=== PATIENT | female | born 1975 | race Caucasian/White ===

== ENCOUNTER 2020-01-22 08:14 | Emergency (ER) | payer OTHER, SELFPAY ==
--- NOTE | ~2020-01-22 | XR_ITS ---
EXAMINATION: XR foot RT min 3V DATE: 01/22/2020 08:35 INDICATION: Right foot lateral pain. Injury. TECHNIQUE: 4 views of right foot were obtained. COMPARISON: None. FINDINGS: Bone alignment is normal. No fracture. There is mild osteoarthritis of first metatarsophala ngeal joint and some of the midfoot joints and interphalangeal joints. There are enthesophytes at the posterior and plantar aspects of calcaneal tuberosity. IMPRESSION: 1. Mild polyarticular osteoarthritis. Reviewed, dictated and finalized at location A.
[2020-01-22 08:26] VITALS: BP 122/66; PULSE 64; RESP 16; TEMP 36.8; O2SAT 98
--- NOTE | 2020-01-22 08:27 | PC.NURSE ---
Pt going to Xray
--- NOTE | 2020-01-22 08:51 | ED.LOWEXIN ---
HPI - Extremity Injury (Lower) General Chief Complaint: Extremity Injury, Lower Stated Complaint: injury right foot pain Time Seen by Provider: 01/22/20 08:30 Source: patient and RN notes reviewed Mode of arrival: ambulatory Limitations: no limitations History of Present Illness HPI Narrative: Patient presents today complaining of right lateral foot pain after twisting her foot while mowing 4 days ago. Denies numbness or tingling in the leg or foot. Describes the pain as aching. Currently rates her pain 4/10, which increases with weightbearing. She has been taking ibuprofen with mild relief. complaint: foot injury Related Data Home Medications Medication Instructions Recorded Confirmed lisinopril-hydrochlorothiazide 1 tablet PO DAILY 01/22/20 01/22/20 [Zestoretic] Allergies Allergy/AdvReac Type Severity Reaction Status Date / Time No Known Allergies Allergy Verified 09/03/17 20:29 Review of Systems Review of Systems: Narrative: CONSTITUTIONAL: Denies body aches, fever, chills, or sweats. EYES: Denies visual changes, redness, or discharge. ENT: Denies rhinorrhea, congestion, sore throat, or otalgia. CARDIOVASCULAR: Denies chest pain, palpitations, or edema. RESPIRATORY: Denies cough or dyspnea. GASTROINTESTINAL: Denies abdominal pain, nausea, vomiting, or diarrhea. GENITOURINARY: Denies dysuria or hematuria. SKIN: Denies rash, itching, or wounds. MUSCULOSKELETAL: Denies back pain, or myalgia.+ Right foot injury NEUROLOGIC: Denies headache, numbness, tingling, or weakness. PSYCH: Denies depression or anxiety. PMFSH Social History Social History Gender identity (if verbalized by the patient): Female Comments At time of signature, I have reviewed and agree with nursing past medical, surgical, social and family history unless otherwise noted. Please see nursing chart for further information. There is no relevant family history pertinent to the presenting complaint Exam Narrative: Exam Narrative: GENERAL: Well-appearing, over-nourished, and in no acute distress. HEAD: Normocephalic, atraumatic. EYES: EOMI. No redness or drainage. Conjunctivae normal. ENT: Mucous membranes pink and moist. NECK: Normal AROM. Supple. No lymphadenopathy. CHEST: No respiratory distress. EXTREMITIES: Normal range of motion. No edema. Patient localizes pain to the lateral right midfoot. No edema or ecchymosis noted. Distal sensation intact. Capillary refill normal. Pedal pulse normal. Full AROM of toes and ankle without increased pain. SKIN: Warm, dry, no rash. Capillary refill normal. Normal skin turgor. NEURO: No focal deficits. Alert and oriented x3. Gait steady. PSYCH: Normal affect. No signs of depression or anxiety. Course Vital Signs Vital signs: Vital Signs Temperature 98.3 F 01/22/20 08:26 Pulse Rate 64 01/22/20 08:26 Respiratory Rate 16 01/22/20 08:26 Blood Pressure 122/66 01/22/20 08:26 Pulse Oximetry 98 01/22/20 08:26 Temperature 98.3 F 01/22/20 08:26 Pulse Rate 64 01/22/20 08:26 Respiratory Rate 16 01/22/20 08:26 Blood Pressure 122/66 01/22/20 08:26 Pulse Oximetry 98 01/22/20 08:26 Reviewed. Pt has been instructed to follow up with her PCP regarding her elevated blood pressure today. MDM - Extremity Injury (Lower) Differential Diagnosis Differential diagnosis: Likely other (Foot sprain, foot fracture) Imaging Data Radiologist's impression: ITS Impressions Foot X-Ray 01/22/20 08:39 IMPRESSION: 1. Mild polyarticular osteoarthritis. Critical Care Time Critical Care Time Critical Care Time: No Discharge Plan Discharge Clinical Impression: Right foot sprain Qualifiers: Encounter type: initial encounter Qualified Code(s): S93.601A - Unspecified sprain of right foot, initial encounter Patient Disposition: Home, Self-Care Condition: Stable Instructions: Foot Sprain (ED) Additional Instructions: Your xray is negati
== END 2020-01-22 08:57 | disposition home or self-care (01) ==
PROVIDERS: Emergency Provider Nurse Practitioner; PCP Nurse Practitioner Family
DX: S93.601A Unspecified sprain of right foot, initial encounter (principal); M19.071 Primary osteoarthritis, right ankle and foot; X50.9XXA Other and unspecified overexertion or strenuous movements or postures, initial encounter; Y93.H2 Activity, gardening and landscaping
CPT/HCPCS: 73630; 99213; G0463

== ENCOUNTER → 2020-05-09 15:13 | Outpatient (CLI) | payer OTHER, SELFPAY ==
--- NOTE | ~2020-05-09 | MM_ITS ---
EXAMINATION: MM screening mg BI w meka HISTORY: Screening mammogram TECHNIQUE: Craniocaudal and mediolateral oblique 3-D tomosynthesis images were obtained and synthetic 2-D images were generated. CAD analysis was submitted and interpreted. COMPARISON: 08/08/2016 bilateral diagnostic digital mammogram 05/08/2015 diagnostic left digital mammogram 04/11/2015 and 03/21/2014 bilateral digital screening mammogram examinations BREAST PARENCHYMAL COMPOSITION: There are scattered areas of fibroglandular density. FINDINGS: There is no evidence of suspicious mass, calcification, or architectural distortion to sugg est malignancy in either breast. There has been no suspicious interval change. IMPRESSION: 1. No mammographic evidence of malignancy. 2. Recommend routine screening mammography in one year. BI-RADS Category 1: Negative Reviewed, dictated and finalized at location A.
== END ==
PROVIDERS: Visit Provider Nurse Practitioner Family
DX: Z12.31 Encounter for screening mammogram for malignant neoplasm of breast (principal)
CPT/HCPCS: 77063; 77067

== ENCOUNTER 2020-06-30 11:37 | Emergency (ER) | payer OTHER, SELFPAY ==
[2020-06-30 11:47] VITALS: BP 110/73; PULSE 64; RESP 16; TEMP 35.7; O2SAT 99
--- NOTE | 2020-06-30 12:16 | ED.GENADULT ---
HPI - General Adult General Chief complaint: Ear Stated complaint: Ear Pain Time Seen by Provider: 06/30/20 12:16 Source: patient Mode of arrival: ambulatory Limitations: no limitations History of Present Illness HPI narrative: 45-year-old female patient presents to the [facility] with complaints of right ear pain for the past 4 to 5 days. Patient states that she was seen at a [facility] last week for the ear pain. Patient states that she was told that she had some redness to the canal and her ear was flushed several times in the clinic. Patient was given some eardrop, Ciprodex medication to use. Patient states that she has been taking ibuprofen for the pain which has helped but states that the pain got significantly worse today. Denies any fevers, body aches or chills. Related Data Home Medications Medication Instructions Recorded Confirmed lisinopril-hydrochlorothiazide 1 tablet PO DAILY 01/22/20 06/30/20 [Zestoretic] Allergies Allergy/AdvReac Type Severity Reaction Status Date / Time No Known Allergies Allergy Verified 06/30/20 11:55 Review of Systems Review of Systems: Narrative: CONSTITUTIONAL: Denies fever, chills, or sweats. EYES: Denies visual changes, redness, or discharge. ENT: Denies rhinorrhea, congestion, sore throat, positive right otalgia. CARDIOVASCULAR: Denies chest pain, palpitations, or edema. RESPIRATORY: Denies cough or dyspnea. GASTROINTESTINAL: Denies abdominal pain, nausea, vomiting, or diarrhea. GENITOURINARY: Denies dysuria or hematuria. SKIN: Denies rash or itching. MUSCULOSKELETAL: Denies back pain, joint pain, or myalgia. NEUROLOGIC: Denies headache, numbness, or weakness. PSYCHIATRIC: Denies anxiety or depression. [facility] Past Medical History Medical History BMI greater than 40 Patella-femoral syndrome Right knee pain Vision abnormalities Surgical History Surgical History History of carpal tunnel release Carpal tunnel syndrome: performed by Dr. Adelfo Klein in [facility] Social History Social History Smoking status: Never smoker Alcohol intake: never Gender identity (if verbalized by the patient): Female Comments At the time of my signature I agree with nursing past medical history, surgical, social, and family history. There is no relevant family history pertinent to the presenting complaint. Exam Narrative: Exam Narrative: GENERAL: Well-appearing, well-nourished, and in no acute distress. HEAD: Normocephalic, atraumatic. EYES: PERRLA and EOMI. ENT: Nares clear, no rhinorrhea or epistaxis. Mucous membranes moist. Posterior pharynx with no erythema, tonsillar erythema, exudates or lesions present. The right canal is very swollen with significant erythema and does appear dry but no obvious discharge. Unable to visualize the TM very well but it does appear that she might have some cloudiness and bulging is to the TM as well. NECK: Supple. No lymphadenopathy CHEST: Clear to auscultation. No respiratory distress. HEART: Regular rate and rhythm. No murmur heard. Normal peripheral pulses. ABDOMEN: Soft, nontender, nondistended, normal active bowel sounds. EXTREMITIES: Normal range of motion. No edema. SKIN: Warm, dry, no rash. NEURO: No focal deficits. Alert and oriented x3. Course Vital Signs Vital signs: Vital Signs Temperature 35.7 C L 06/30/20 11:47 Pulse Rate 64 06/30/20 11:47 Respiratory Rate 16 06/30/20 11:47 Blood Pressure 110/73 06/30/20 11:47 Pulse Oximetry 99 06/30/20 11:47 Temperature 35.7 C L 06/30/20 11:47 Pulse Rate 64 06/30/20 11:47 Respiratory Rate 16 06/30/20 11:47 Blood Pressure 110/73 06/30/20 11:47 Pulse Oximetry 99 06/30/20 11:47 Vital signs reviewed. Medical Decision Making Differential Diagnosis Differential Diagnosis: D
== END 2020-06-30 12:25 | disposition home or self-care (01) ==
PROVIDERS: Emergency Provider Nurse Practitioner Family; PCP Nurse Practitioner Family
DX: H66.91 Otitis media, unspecified, right ear (principal); H60.501 Unspecified acute noninfective otitis externa, right ear; I10 Essential (primary) hypertension
CPT/HCPCS: 99213; G0463

== ENCOUNTER → 2021-05-20 07:39 | Outpatient (CLI) | payer OTHER, SELFPAY ==
[2021-05-20 12:23] LABS: Influenza Control Positive
[2021-05-21 07:19] LABS: SARS-CoV-2 RNA PCR Negative
== END ==
PROVIDERS: PCP Nurse Practitioner Family; Visit Provider Nurse Practitioner Family
DX: B34.9 Viral infection, unspecified (principal); Z20.822 Contact with and (suspected) exposure to COVID-19
CPT/HCPCS: 87804; C9803; U0003; U0005

== ENCOUNTER 2021-07-29 02:06 | Emergency (ER) | payer OTHER, SELFPAY ==
--- NOTE | ~2021-07-29 | CT_ITS ---
EXAMINATION: CTA chest PE abdomen pel DATE: 07/29/2021 04:17 INDICATION: Chest pain. TECHNIQUE: Computed tomography angiography (CTA) of the chest was performed with 100 mL Omnipaque-350 intravenous contrast timed to evaluate the pulmonary arteries. Coronal maximum intensity projection 3D-reconstructions were created by the technologist. Computed tomography (CT) of the abdomen and pelv is was performed with intravenous contrast. Automated exposure control and iterative reconstruction t echnique were employed. The dose-length product was 2310.17 mGy-cm. COMPARISON: CT abdomen and pelvis 09/03/2017 FINDINGS: CTA chest: The lungs demonstrate mild atelectasis. No pleural effusion. The heart size is normal. No pericardial effusion. There is no pulmonary embolus. CT abdomen and pelvis: There is diffuse hepatic steatosis. There is a small peripheral infarct in the spleen. The gallbladder, pancreas, and adrenal glands are normal. There is cortical thinning of the kidneys. There is a 4.0 cm cyst in right ovary. There is diverticulosis of the colon without evidence of diverticulitis. The appendix is normal. There are surgical changes of the stomach. There are no p athologically enlarged lymph nodes. There is no free intraperitoneal fluid. There is mild thoracolumb ar spondylosis. IMPRESSION: 1. No pulmonary embolus. 2. 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 3. 4.0 cm cyst in right ovary, new from 09/03/2017, likely a follicular cyst. 9 4. Diffuse hepatic steatosis. Reviewed, dictated and finalized at location A. [address] [employer]
[2021-07-29 02:11] VITALS: BP 185/108; PULSE 56; RESP 18; TEMP 36.1; O2SAT 98
--- NOTE | 2021-07-29 02:14 | ED.ABDPAIN ---
HPI - Abdominal Pain General Chief Complaint: Abdominal Pain Stated Complaint: lt flank pain with nausea Time Seen by Provider: 07/29/21 02:13 Source: patient Mode of arrival: ambulatory Limitations: no limitations History of Present Illness HPI narrative: Patient is a 46-year-old female with a history of hypertension, recent gastric sleeve surgery of [facility], presenting for evaluation of right thoracic back pain. Patient reports pain in her left posterior chest wall awaken her from sleep approximately 2 hours ago. Pain is sharp, stabbing in nature. Patient reports worsened pain with movement or with palpation of that area. Patient denies any leg swelling or calf pain. States she has been ambulatory. Does report recent gastric sleeve surgery of [facility]. She denies history of coagulopathy, DVT or PE in the past. She is not currently on any anticoagulation. Patient denies any fever, chills, frontal chest pain. No frontal abdominal pain. She does endorse mild left flank pain. She denies associated shortness of breath. She does report nausea without vomiting. Patient denies diarrhea or constipation. Related Data Home Medications Medication Instructions Recorded Confirmed lisinopril-hydrochlorothiazide 1 tablet PO DAILY 01/22/20 06/30/20 [Zestoretic] Allergies Allergy/AdvReac Type Severity Reaction Status Date / Time No Known Allergies Allergy Verified 06/30/20 11:55 Review of Systems Review of Systems: CONSTITUTIONAL: Denies fever, chills, or sweats. EYES: Denies visual changes, redness, or discharge. ENT: Denies rhinorrhea, congestion, sore throat, or otalgia. CARDIOVASCULAR: Denies frontal chest pain, palpitations, or edema. Reports left posterior chest wall pain RESPIRATORY: Denies cough or dyspnea. GASTROINTESTINAL: Denies abdominal pain, nausea, vomiting, or diarrhea. GENITOURINARY: Denies dysuria or hematuria. SKIN: Denies rash or itching. MUSCULOSKELETAL: Denies back pain, joint pain, or myalgia. NEUROLOGIC: Denies headache, numbness, or weakness. [facility] Past Medical History Medical History BMI greater than 40 Patella-femoral syndrome Right knee pain Vision abnormalities Surgical History Surgical History History of carpal tunnel release Carpal tunnel syndrome: performed by Dr. Adelfo Klein in [facility] Social History Social History Smoking status: Never smoker Alcohol intake: never Gender identity (if verbalized by the patient): Female Exam Narrative: GENERAL: Awake, alert, conversant HEAD: Normocephalic, atraumatic. EYES: PERRLA and EOMI. ENT: Nares clear, no rhinorrhea or epistaxis. Mucous membranes moist. NECK: Supple. CHEST: No respiratory distress, breathing even and non labored, + left thoracic chest wall pain, no crepitus, this exactly reproduces pain HEART: Regular rate, sinus rhythm ABDOMEN:Non distended, non tender EXTREMITIES: Normal range of motion. No edema. SKIN: Warm, dry, no rash. NEURO:No focal deficits. Alert and oriented x3 Course Vital Signs Vital signs: Vital Signs Temperature 36.1 C L 07/29/21 02:11 Pulse Rate 56 L 07/29/21 02:11 Respiratory Rate 18 07/29/21 02:11 Blood Pressure 185/108 H 07/29/21 02:11 Pulse Oximetry 98 07/29/21 02:11 Temperature 36.1 C L 07/29/21 02:11 Pulse Rate 56 L 07/29/21 02:11 Respiratory Rate 18 07/29/21 02:11 Blood Pressure 185/108 H 07/29/21 02:11 Pulse Oximetry 98 07/29/21 02:11 MDM - Abdominal Pain MDM Narrative Medical decision making narrative: Patient presenting for evaluation of left upper abdominal pain, left lower thoracic pain. Pain is reproducible on exam. No vesicles or clusters. No overlying rash. Initially, patient is hypertensive but this downtrending at times of reassessment. No
--- NOTE | 2021-07-29 02:59 | ECG_ITS ---
Measurements Intervals [place] Rate: 56 P: 52 TX: 185 QRS: 40 QRSD: 96 T: 37 QT: 432 QTc: 420 Interpretive Statements SINUS BRADYCARDIA LOW QRS VOLTAGE IN PRECORDIAL LEADS BORDERLINE ECG Electronically Signed On 07-29-2021 6:47:50 [employer] by Rambo Galloway D.O.
[2021-07-29] MEDS: MORPHINE SULFATE (*CRX) 4 MG/ML INJ IV PUSH (03:27)
[2021-07-29] MEDS: SODIUM CHLORIDE 0.9% IV 1,000 ML 999 ML IV CONT (03:30)
[2021-07-29] MEDS: ONDANSETRON INJ 4 MG/2 ML VIAL IV PUSH (03:30)
[2021-07-29 03:47] LABS: Basophils Absolute Auto 0.1 K/mm3 (0.0-0.1); Basophils Percent Auto 0.7 % (0.2-1.2); Eosinophils Absolute Auto 0.3 K/mm3 (0-0.3); Eosinophils Percent Auto 3.6 % (0-4.4); Hematocrit 36.5 % (37.0-47.0); Hemoglobin 11.8 g/dL (12.0-15.0); Immature Granulocyte Absolute 0.03 K/mm3 (0.00-0.031); Immature Granulocyte Percent A 0.4 % (0-0.5); Immature Platelet Fraction Pct 16.3 % (0.9-11.2); Lymphocytes Absolute Auto 2.82 K/mm3 (0.9-3.2); Lymphocytes Percent Auto 39.4 % (18.3-44.2); Mean Corpuscular HGB Conc 32.3 g/dl (32-36); Mean Corpuscular Volume 86.7 fl (80-100); Mean Platelet Volume 13.7 fl (7.4-10.4); Monocytes Absolute Auto 0.5 K/mm3 (0.1-0.6); Monocytes Percent Auto 7.6 % (2.6-8.5); Neutrophils Absolute Auto 3.5 K/mm3 (1.3-6.7); Neutrophils Percent Auto 48.3 % (45.5-73.1); Platelet Count Result 194 k/mm3 (150-375); Red Blood Count 4.21 M/mm3 (4.2-5.4); Red Cell Distribution Width 15.2 % (11.5-14.5); White Blood Count 7.2 K/mm3 (4.5-10.0)
[2021-07-29 04:00] LABS: Alanine Aminotransferase 30 U/L (4-35); Albumin Level 3.9 g/dL (3.5-5.1); Alkaline Phosphatase 66 U/L (38-126); Anion Gap 6 mmol/L (8-16); Aspartate Amino Transferase 31 U/L (14-36); Bilirubin,Total 0.4 mg/dL (0.2-1.3); Blood Urea Nitrogen 15 mg/dL (7-17); Calcium 9.2 mg/dL (8.4-10.2); Carbon Dioxide 26 mmol/L (22-30); Chloride 102 mmol/L (98-107); Estimated CRCL calculation 125 ml/min; Estimated Glomerular Filt Rate > 60; Glucose 104 mg/dL (65-110); Lipase 68 U/L (23-300); Potassium 3.4 mmol/L (3.4-5.0); Sodium 134 mmol/L (137-145)
[2021-07-29 06:09] LABS: Troponin I < 0.012 ng/mL (0.000-0.034)
[2021-07-29 06:31] VITALS: RESP 16; O2SAT 100
== END 2021-07-29 06:32 | disposition home or self-care (01) ==
PROVIDERS: Emergency Provider Emergency Medicine; PCP Nurse Practitioner Family
DX: M54.6 Pain in thoracic spine (principal); I10 Essential (primary) hypertension; Z98.84 Bariatric surgery status; R00.1 Bradycardia, unspecified
CPT/HCPCS: 36415; 71275; 74177; 80053; 83690; 84484; 85025; 85055; 85380; 93005; 96365; 96366; 96375; 99284; J0131; J2270; J2405; J7030; Q9967

== ENCOUNTER → 2022-05-26 13:16 | Outpatient (CLI) | payer OTHER, SELFPAY ==
--- NOTE | ~2022-05-26 | MM_ITS ---
EXAMINATION: MM screening mg BI w meka HISTORY: Screening mammogram TECHNIQUE: Craniocaudal and mediolateral oblique 3-D tomosynthesis images were obtained and synthetic 2-D images were generated. CAD analysis was submitted and interpreted. COMPARISON: 05/09/2020, 07/29/2016, 05/08/2015, 04/11/2015, 03/21/2014 BREAST PARENCHYMAL COMPOSITION: The breasts are heterogeneously dense, which may obscure small masses . FINDINGS: RIGHT BREAST: No suspicious mass, calcification, or architectural distortion are identified to sugges t malignancy. There has been no suspicious interval change. LEFT BREAST: There is a possible mass in the anterior third of the inner breast best appreciated 3.5 cm from the nipple on the craniocaudal view. IMPRESSION: 1. Possible left breast mass 2. Additional mammographic views and possible breast ultrasound are recommended. BI-RADS Category 0: Incomplete: Needs additional imaging evaluation. Reviewed, dictated and finalized at location A. IMPRESSION: 1. Possible left breast mass 2. Additional mammographic views and possible breast ultrasound are recommended . BI-RADS Category 0: Incomplete: Needs additional imaging evaluation.
== END ==
PROVIDERS: PCP Nurse Practitioner Family; Visit Provider Nurse Practitioner Family
DX: Z12.31 Encounter for screening mammogram for malignant neoplasm of breast (principal); R92.8 Other abnormal and inconclusive findings on diagnostic imaging of breast
CPT/HCPCS: 77063; 77067

== ENCOUNTER → 2022-06-09 08:17 | Outpatient (CLI) | payer OTHER, SELFPAY ==
--- NOTE | ~2022-06-09 | MMUS_ITS ---
EXAMINATION: MM diagnostic mg LT w meka, US breast LT limited HISTORY: Follow-up left breast asymmetry TECHNIQUE: Additional 3-D tomosynthesis images of the left breast were performed and synthetic 2-D im ages were generated. CAD analysis was submitted and interpreted. High resolution Limited left breast ultrasound was performed. COMPARISON: 05/26/2022 BREAST PARENCHYMAL COMPOSITION: Breast composed of scattered areas of fibroglandular density FINDINGS: MAMMOGRAPHIC FINDINGS: There are no discrete masses, architectural distortion or suspicious calcifications in the left breas t. ULTRASOUND: Limited left breast ultrasound: Normal heterogeneous echotexture without focal solid or cystic mass. IMPRESSION: 1. No evidence for malignancy in the left breast. 2. Routine yearly screening mammogram and regular clinical breast examination are recommended. BI-RADS Category 1: Negative Reviewed, dictated and finalized at location A. IMPRESSION: 1. No evidence for malignancy in the left breast. 2. Routine yearly screening mammogram and regular clinical breast examination a re recommended. BI-RADS Category 1: Negative
== END ==
PROVIDERS: PCP Nurse Practitioner Family; Visit Provider Nurse Practitioner Family
DX: R92.8 Other abnormal and inconclusive findings on diagnostic imaging of breast (principal)
CPT/HCPCS: 76642; 77061; 77065; G0279

== ENCOUNTER 2022-12-28 09:37 | Emergency (ER) | payer OTHER, SELFPAY ==
--- NOTE | ~2022-12-28 | XR_ITS ---
Right foot Technique: AP, oblique, and lateral views were obtained. Clinical History: Lateral pain Findings: No acute fracture or dislocation is seen. Osseous alignment is anatomic. Joint spaces are p reserved without erosive or degenerative change. Frontal calcaneal spur noted. Soft tissues are unrem arkable. Impression: No fracture or dislocation. Plantar calcaneal spur. Reviewed, dictated and finalized at location . Impression: No fracture or dislocation. Plantar calcaneal spur.
[2022-12-28 09:48] VITALS: BP 145/89; PULSE 56; RESP 16; TEMP 36.4; O2SAT 100
--- NOTE | 2022-12-28 09:48 | ED.LOWEXIN ---
HPI - Extremity Injury (Lower) General Chief Complaint: Extremity Injury, Lower Stated Complaint: Foot Injury Time Seen by Provider: 12/28/22 10:12 Source: patient, RN notes reviewed and old records reviewed Mode of arrival: ambulatory Limitations: no limitations History of Present Illness HPI Narrative: 47-year-old female presents to the [facility] with complaints of lateral mid right foot pain after returning from [place]. States that she was doing a lot a walking and wearing sandals Has taken Tylenol Related Data Home Medications Medication Instructions Recorded Confirmed No Home Medications 12/28/22 12/28/22 Allergies Allergy/AdvReac Type Severity Reaction Status Date / Time NSAIDS (Non-Steroidal AdvReac Unknown Verified 12/28/22 10:07 Anti-Inflamma Review of Systems Review of Systems: All systems reviewed & are unremarkable except as noted in HPI and below Constitutional: Constitutional: Reports no additional constitutional complaints Eyes: Eyes: Reports no additional eye complaints ENT: Reports system reviewed and no additional complaints, except as documented Cardiovascular: Cardiovascular: Reports no additional cardiovascular complaints, Denies chest pain and Denies dyspnea Respiratory: Respiratory: Reports no additional respiratory complaints, Denies chest congestion, Denies cough and Denies dyspnea Gastrointestinal: Gastrointestinal: Reports no additional gastrointestinal complaints, Denies abdominal pain, Denies nausea and Denies vomiting Musculoskeletal: Musculoskeletal: Reports as per HPI Integumentary/Breasts: Skin/Breast: Reports system reviewed and no additional complaints, except as docu Neurologic: Reports system reviewed and no additional complaints, except as documented Psychiatric: Psychiatric: Reports no additional psychiatric complaints Allergic/Immunologic: Allergic/Immunologic: Reports no additional allergic/immunologic complaints [facility] Past Medical History Medical History (Updated 12/28/22 @ 10:18 by Kimberlyn Ragsdale APRN) BMI greater than 40 Patella-femoral syndrome Right knee pain Vision abnormalities Surgical History Surgical History (Updated 12/28/22 @ 10:16 by Kimberlyn Ragsdale APRN) H/O: hysterectomy History of carpal tunnel release Carpal tunnel syndrome: performed by Dr. Adelfo Klein in [facility] gastric sleeve procedure Social History Social History Smoking status: Never smoker Alcohol intake: never Gender identity (if verbalized by the patient): Female Comments At the time of my signature, I reviewed and agree with the nursing past medical, surgical, social, and family history. There is no relevant family history pertinent to the patient complaint. Exam Const: General: cooperative, healthy appearing, comfortable, no acute distress, well developed, alert and well nourished Nutritional Appearance: well nourished Orientation/consciousness: patient oriented x3 Limitations: no limitations HENMT: Head: normal to inspection Ears: hearing grossly normal bilaterally and external ears normal Face/Nose/Sinus: Normal external nose present, Normal nares present, Normal nasal mucous membranes and turbinates present and normal facial exam Face and sinus: normal facial exam Mouth: Yes lip normal Eyes: General: appearance normal, both eyes and all related structures Alignment and Position: alignment normal Periorbital: periorbital findings normal Conjunctivae: conjunctivae normal Pupils: Equal, round and reactive pupils present EOM: EOMs intact bilaterally Neck: Neck: normal visual inspection, full ROM, no lymphadenopathy and no meningeal signs Chest: Chest palpation & inspection: normal inspection of the chest Resp: Effort & Inspection: normal respiratory effort and able to speak in complete sentences Cardio: Rate: regular rate Rhythm: regular rhythm Back/Spine/Pelvis: Cervical Spi
== END 2022-12-28 10:21 | disposition home or self-care (01) ==
PROVIDERS: Emergency Provider Nurse Practitioner; PCP Nurse Practitioner Family
DX: M79.671 Pain in right foot (principal); Z98.84 Bariatric surgery status
CPT/HCPCS: 73630; 99213; G0463

== ENCOUNTER → 2023-02-09 09:44 | Outpatient (CLI) | payer OTHER, SELFPAY ==
--- NOTE | ~2023-02-09 | XR_ITS ---
Right Knee Technique: AP, lateral, and sunrise views were obtained. Clinical History: Pain Findings: No fracture or dislocation is seen. Osseous alignment is anatomic. Minimal spurring noted a t the patella and medial joint line. Soft tissues are unremarkable. No joint effusion is seen. Impression: Minimal degenerative spurring, as above. Reviewed, dictated and finalized at location . Impression: Minimal degenerative spurring, as above.
== END ==
PROVIDERS: PCP Nurse Practitioner Family; Visit Provider Nurse Practitioner Family
DX: M25.561 Pain in right knee (principal)
CPT/HCPCS: 73562

== ENCOUNTER → 2023-04-22 15:38 | Outpatient (CLI) | payer OTHER, SELFPAY ==
--- NOTE | ~2023-04-22 | MR_ITS ---
EXAMINATION: MR knee RT wo con DATE: 04/22/2023 16:16 INDICATION: Right knee pain TECHNIQUE: Magnetic resonance imaging (MRI) of the right knee was performed without intravenous contr ast. Sequences included coronal PD-weighted FSE, coronal PD-weighted FS FSE, sagittal T2-weighted FS E, sagittal PD-weighted FS FSE and axial PD weighted fat saturated FSE. COMPARISON: None. FINDINGS: Medial compartment: There is medial extrusion of the medial meniscal body. There is increased signal at the root of the m edial meniscus suggesting a likely radial tear. Shallow chondral ulceration with partial thickness ca rtilage loss, scattered chondral surface regularity but without degenerative subchondral changes justino g the anterior to central weightbearing medial femoral condyle. Cartilage at the medial tibial platea u appears relatively preserved. Lateral compartment: Lateral meniscus is normal. Small region of shallow chondral ulceration along the posterior aspect of the lateral tibial plateau. Cartilage along the weightbearing lateral femoral condyle appears relati vely preserved. Patellofemoral compartment: Partial-thickness chondral ulceration and deep fissuring at the central aspect of the patellar apical ridge and immediately adjacent medial and lateral facets. There is a tiny focus of underlying edema- like signal change along the medial margin of the apical ridge. Partial-thickness chondral fissuring without degenerative subchondral changes at the inferior aspect of the medial trochlea. Ligaments and tendons: Anterior and posterior cruciate ligaments are normal. The medial collateral ligament and fibular darian ateral ligament complex are normal. The extensor mechanism is normal. The visualized medial and later al hamstring tendons as well as the iliotibial band are normal. Fluid: Physiologic amount of fluid in the joint space. No loose osteochondral bodies identified. Osseous/other: Elongated ovoid low signal intensity bone island at the posterior aspect of the lateral tibial platea u. No fracture or pathologic marrow replacing process. IMPRESSION: 1. Likely radial tear at the posterior root of the medial meniscus with mild medial extrusion of the meniscal body. 2. 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 Reviewed, dictated and finalized at location A. IMPRESSION: 1. Likely radial tear at the posterior root of the medial meniscus with mild me dial extrusion of the meniscal body. 2. Mild tricompartmental osteoarthritis with moderate to high-grade patellar ch ondromalacia and moderate grade chondromalacia at the trochlea and in the media l and lateral compartments.
== END ==
PROVIDERS: PCP Orthopaedic Surgery; Visit Provider Orthopaedic Surgery
DX: M22.2X1 Patellofemoral disorders, right knee (principal); M25.561 Pain in right knee; M17.11 Unilateral primary osteoarthritis, right knee; M94.261 Chondromalacia, right knee
CPT/HCPCS: 73721

== ENCOUNTER 2023-05-30 08:54 | Outpatient (CLI) | payer OTHER, SELFPAY ==
--- NOTE | 2023-05-30 09:02 | ECG_ITS ---
Measurements Intervals [place] Rate: 54 P: 44 [place]: 164 QRS: 26 QRSD: 100 T: 29 QT: 444 QTc: 422 Interpretive Statements SINUS BRADYCARDIA OTHERWISE NORMAL ECG COMPARED TO ECG 07/29/2021 03:36:21 NO SIGNIFICANT CHANGES Electronically Signed On 05-30-2023 9:30:20 CDT by Endy Du M.D.
[2023-05-30 09:47] LABS: Anion Gap 5 mmol/L (8-16); Blood Urea Nitrogen 12 mg/dL (7-17); Calcium 9.1 mg/dL (8.4-10.2); Carbon Dioxide 30 mmol/L (22-30); Chloride 100 mmol/L (98-107); Estimated Glomerular Filt Rate > 60; Glucose 100 mg/dL (65-110); Potassium 3.7 mmol/L (3.4-5.0); Sodium 135 mmol/L (137-145)
== END 2023-05-30 08:55 | disposition home or self-care (01) ==
LOC: ANHSURGERY 08:57
PROVIDERS: Anesthesiology; PCP Nurse Practitioner Family; Visit Provider Orthopaedic Surgery
DX: Z01.812 Encounter for preprocedural laboratory examination (principal); Z01.810 Encounter for preprocedural cardiovascular examination; I10 Essential (primary) hypertension; Z79.899 Other long term (current) drug therapy; R00.1 Bradycardia, unspecified
CPT/HCPCS: 36415; 80048; 93005

== ENCOUNTER 2023-06-06 00:20 | Day surgery (SDC) | payer OTHER, SELFPAY ==
[2023-05-24 15:36] VITALS: BMI 43.5
--- NOTE | 2023-05-24 15:41 | PC.NURSE ---
Report to the Outpatient Waiting Room, entrance under the green pavilion located off [facility], at time _1030_ on date _[id number]_. Planned Procedure Time: _1230_. Time changes happen often and if your time is changed the preop area will call you the afternoon before. - You and your visitor will be asked to self-screen and do not enter if you have any COVID symptoms. - A mask is optional within the hospital at this time. Patients may have clear liquids (water, carbonated beverages, clear teas, apple juice) until 3 hours prior to surgery with a maximum of 20 ounces. - No food from midnight until time of surgery Take the following medications with a SIP of water the morning of surgery: ___None DO NOT STOP ANY OF YOUR OTHER PRESCRIPTION MEDICATIONS PRIOR TO SURGERY ?EXCEPT THE FOLLOWING Medications to discontinue per physician ___Vitamins and fish oil Date to take last gvas__[id number] Please no make-up, nail vietnamese, hairspray, perfume, deodorant, or body powder the day of surgery. No jewelry (including any body piercings) or valuables the day of surgery, leave them at home. Please take a shower or bath the night before, or the morning of, surgery with an antibacterial soap. Wear comfortable, loose fitting clothing. - Jewelry must be removed prior to entering the operating room. Rings and piercings that are not removed may be cut off. - The hospital will not accept responsibility for valuables. - Please leave all valuables, including medications, at home the day of surgery. If you are going home after surgery, a licensed stud driver must drive you home. - NO public transportation without another adult if you receive anesthesia. - We recommend that an adult stay with you for 24 hours following discharge. - We also recommend that you do not drive, make important decision, drink alcoholic beverages, or take any drugs that were not prescribed by your health care provider for at least 24 hours after your discharge time. Follow any additional instructions given to you from your surgeon. If you or anyone in your household have experienced Covid symptoms in the past week, please notify your surgeon or the nurse liaison at the phone number below for possible testing. Telephone instructions given to __Patient__and asked if any additional questions and then verbalized understanding. Patient advised to call surgeon office or pre surgery nurse liaison [phone] if any additional questions.
[2023-06-06] VITALS (9 sets, daily range): BP systolic 102–127; BP diastolic 54–78; PULSE 50–72; RESP 10–16; TEMP 36.3–36.8; O2SAT 96–100
--- NOTE | 2023-06-06 11:28 | WPDANESEPPF ---
Anes - Initial Pre Proc Eval Procedure: Operation Date: 06/06/23 12:30 Proposed Procedures p Right Knee Arthroscopy with Meniscectomy - Ross Martinez MD Date/Time: 06/06/23 11:28 Surgeon: Ross Martinez MD Pre Op Diagnosis: right knee medial meniscal tear Patient Data Age: 48 Gender: F Height: 1.55 m Weight: 104.5 kg Allergies Allergy/AdvReac Type Severity Reaction Status Date / Time NSAIDS (Non-Steroidal AdvReac Unknown Verified 05/31/23 15:31 Anti-Inflamma Home Medications Medication Instructions Recorded Confirmed Type lisinopril 20 1 tablet PO DAILY 02/14/23 05/31/23 History mg-hydrochlorothiazide 12.5 mg tablet multivitamin 1 tablet PO DAILY 05/24/23 05/31/23 History omega-3 fatty acids 1,000 mg PO DAILY 05/24/23 05/31/23 History Patient hx anesthesia problems: none Family hx anesthesia problems: none Results Review: All pre-operative results and documents have been reviewed as part of the pre-operative evaluation. [facility] Past Medical History Medical History BMI greater than 40 Hypertension Patella-femoral syndrome Right knee pain Tear of medial meniscus of right knee Vision abnormalities Surgical History Surgical History H/O: hysterectomy 2016 History of 2000 History of carpal tunnel release Carpal tunnel syndrome: performed by Dr. Adelfo Klein in [facility] Right- 2014 Left History of lithotripsy 2008 S/P gastric sleeve procedure Family History Family History Grandparent Cancer Father Hypertension Daughter Depression Social History Social History Smoking status: Never smoker Alcohol intake: never Substance use type: does not use Lack of Transportation: No Lack of Food: Never True Current Housing: I Have Housing Concerned About Future Housing: No Difficulty Paying Gas/Electric Bills: No Difficulty Paying for Meds: No Currently Unemployed: No Education: Master's Degree or Higher Difficulty w/ Childcare or Family Care: No Living arrangements: with family Occupation/Education: occupation 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 Informed Consent: The patient's anesthetic plan and its attendant risks and benefits were discussed with the patient/family/POA. Questions were solicited and answers provided to the satisfaction of the patient/family/POA.
[2023-06-06] MEDS: ACETAMINOPHEN 500 MG TABLET 1000 MG PO (11:30)
[2023-06-06] MEDS: LACTATED RINGERS 1,000 ML 30 ML IV CONT (11:30)
[2023-06-06] MEDS: KETOROLAC 15 MG/ML VIAL (*BKC) IV PUSH (11:30)
--- NOTE | 2023-06-06 11:50 | WPDHPUPDATE1 ---
History and Physical Update Update Date/Time: 06/06/23 11:50 History and Physical has been reviewed, including an updated exam of the patient. There are NO changes in the patient's condition. Risks, benefits, and alternatives have been discussed and questions answered. Patient agrees to proceed with procedure.
[2023-06-06] MEDS: ceFAZolin 2 GM/D5W 50 ML 2 GM/50 ML BAG IVPB (12:25)
[2023-06-06] MEDS: LIDOCAINE HCL 1% LOCAL INJ 20 ML VIAL INFILTRATE (13:02)
--- NOTE | 2023-06-06 13:34 | W.PM.PROC2 ---
Procedure Note - Detailed Date of Procedure 06/06/23 Pre-op Diagnosis right knee medial meniscal tear Post-op Diagnosis Other (Synovitis right knee) Procedure Performed Right knee arthroscopy with extensive synovectomy Surgeon Ross Martinez MD Anesthesia General Description of Procedure The patient was identified and proper site identified and she was taken to the operating room, transferred to the OR table placing her supine taking care to pad the torso and extremities. After general anesthetic induction and intubation, a nonsterile tourniquet was placed high on the right thigh but was not inflated. The right lower extremity was positioned, prepped and draped in usual sterile fashion. 10 cc of 1% lidocaine was injected into the subcutaneous tissue in the area of the portals at start of the procedure, and an additional 10 at the end. The portals were established and the arthroscopy was carried out. There was an abundance of inflamed synovium throughout the medial gutter along the medial femoral condyle and the joint capsule. There was also thickened areas of synovium overlying the anterior horn of the medial meniscus. These areas were addressed with debridement and then ArthroCare Wand is used for extensive hemostasis. Articular cartilage anteriorly and laterally showed grade 2 changes primarily. Some fraying was noted at the apex and lateral meniscus. Medially was described as radial tear was a small indentation in the meniscus. Midbody there was some fraying of the apex of the meniscus which was gently debrided but the meniscus itself was stable. There was extensive grade 3 changes throughout the medial articular surfaces. These areas of loose fibrillated cartilage were debrided gently debrided with a shaver. The ArthroCare Wand was used for intra-articular hemostasis. The knee was flushed with a copious amount of arthroscopic fluid and equipment was removed. Portals were closed with three O nylon suture and a sterile dressing was applied. She tolerated the procedure well, was awakened, extubated and taken to recovery area in stable condition. There were no known intraoperative complications. Estimated blood loss was negligible; she received perioperative antibiotics. Estimated Blood Loss 20 Tourniquet Time 0 Drains No Packing No Pathology None sent Complications No immediate complications Condition Stable Disposition PACU [facility] Billing Surgery - Charge Forward: Surgery Billing ([id number])
[2023-06-06] MEDS: fentaNYL CITRATE INJ (*CRX) 100 MCG/2 ML VIAL 25 MCG IV PUSH ×2 (14:06→14:09)
== END 2023-06-06 15:45 | disposition home or self-care (01) ==
PROVIDERS: PCP Nurse Practitioner Family; Visit Provider Orthopaedic Surgery
PROC: (CPT 29870; principal; 2023-06-06 12:30)
DX: M65.861 Other synovitis and tenosynovitis, right lower leg (principal); I10 Essential (primary) hypertension; E66.01 Morbid (severe) obesity due to excess calories; Z68.41 Body mass index [BMI] 40.0-44.9, adult
CPT/HCPCS: 29876; 36415; 80048; 93005; A9270; J0690; J1100; J1885; J2250; J2405; J2704; J3010; J7120

== ENCOUNTER → 2023-08-26 15:11 | Outpatient (CLI) | payer OTHER, SELFPAY ==
--- NOTE | ~2023-08-26 | MM_ITS ---
EXAMINATION: MM screening mg BI w meka HISTORY: Screening mammogram TECHNIQUE: Craniocaudal and mediolateral oblique 3-D tomosynthesis images were obtained and synthetic 2-D images were generated. CAD analysis was submitted and interpreted. COMPARISON: 06/09/2022, 05/26/2022, 05/10/2020 BREAST PARENCHYMAL COMPOSITION: The breasts are heterogeneously dense, which may obscure small masses . FINDINGS: RIGHT BREAST: No suspicious mass, calcification, or architectural distortion are identified to sugges t malignancy. There has been no suspicious interval change. LEFT BREAST: There is focal asymmetry in the middle/posterior third of the upper breast 9 cm from the nipple. IMPRESSION: 1. Left breast focal asymmetry. 2. Additional mammographic views and possible breast ultrasound are recommended. BI-RADS Category 0: Incomplete: Needs additional imaging evaluation. Reviewed, dictated and finalized at location A. R SERVICES MANAGER IMPRESSION: 1. Left breast focal asymmetry. 2. Additional mammographic views and possible breast ultrasound are recommended . BI-RADS Category 0: Incomplete: Needs additional imaging evaluation.
== END ==
PROVIDERS: PCP Nurse Practitioner Family; Visit Provider Nurse Practitioner Family
DX: Z12.31 Encounter for screening mammogram for malignant neoplasm of breast (principal); N64.89 Other specified disorders of breast; R92.8 Other abnormal and inconclusive findings on diagnostic imaging of breast
CPT/HCPCS: 77063; 77067

== ENCOUNTER 2023-08-30 07:46 | Emergency (ER) | payer OTHER, SELFPAY ==
--- NOTE | ~2023-08-30 | XR_ITS ---
EXAMINATION: XR knee RT 3V DATE: 08/30/2023 08:36 INDICATION: Right knee pain. Swelling. TECHNIQUE: 4 views of right knee were obtained. COMPARISON: Right knee radiograph 02/09/2023 FINDINGS: Bone alignment is normal. No fracture. There is mild osteoarthritis of lateral and patellof emoral compartments. No knee joint effusion. IMPRESSION: 1. Mild right knee osteoarthritis. Reviewed, dictated and finalized at location A. PUNCHER
--- NOTE | 2023-08-30 08:11 | ED.LOWEXIN ---
HPI - Extremity Injury (Lower) General Chief Complaint: Extremity Injury, Lower Stated Complaint: rt knee pain Time Seen by Provider: 08/30/23 08:08 Source: patient Mode of arrival: ambulatory Limitations: no limitations History of Present Illness HPI Narrative: Patient felt a pop to the right knee while trying to get inside the car prior to arrival. History of arthroscopy and internal cleaning for possible meniscus tear 3 months ago. Patient denies other injuries Related Data Home Medications Medication Instructions Recorded Confirmed lisinopril 20 1 tablet PO DAILY 02/14/23 06/21/23 mg-hydrochlorothiazide 12.5 mg tablet multivitamin 1 tablet PO DAILY 05/24/23 06/21/23 omega-3 fatty acids 1,000 mg PO DAILY 05/24/23 06/21/23 Allergies Allergy/AdvReac Type Severity Reaction Status Date / Time NSAIDS (Non-Steroidal AdvReac Unknown Verified 06/21/23 09:35 Anti-Inflamma Review of Systems Review of Systems: All systems reviewed & are unremarkable except as noted in HPI and below PMFSH Past Medical History Medical History BMI greater than 40 Hypertension Patella-femoral syndrome Right knee pain Vision abnormalities Surgical History Surgical History H/O: hysterectomy 2016 History of arthroscopy of right knee Extensive synovectomy with medial compartment chondroplasty History of 2000 History of carpal tunnel release Carpal tunnel syndrome: performed by Dr. Adelfo Klein in [facility] Right- 2014 Left History of lithotripsy 2009 S/P gastric sleeve procedure Family History Family History Grandparent Cancer Father Hypertension Daughter Depression Social History Social History Smoking status: Never smoker Alcohol intake: never Substance use type: does not use Lack of Transportation: No Lack of Food: Never True Current Housing: I Have Housing Concerned About Future Housing: No Difficulty Paying Gas/Electric Bills: No Difficulty Paying for Meds: No Currently Unemployed: No Education: Master's Degree or Higher Difficulty w/ Childcare or Family Care: No Living arrangements: with family Occupation/Education: occupation 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 Musculoskeletal: Right knee exam showed no swelling, no bruises, no deformity, limited range of motion because of tenderness anteriorly laterally Neurologic: Alert and oriented ?3, PACKAGE LINE OPERATOR is normal as tested, no gross motor deficit Course Vital Signs Vital signs: Vital Signs Oxygen Delivery Room Air 08/30/23 07:49 Oxygen Delivery Room Air 08/30/23 07:49 MDM - Extremity Injury (Lower) MDM Narrative Medical decision making narrative: Sprain/strain is my concern. X-ray of the right knee showed no acute abnormalities Differential Diagnosis Differential diagnosis: Likely other (Sprain/strain) Imaging Data Radiologist's impression: Impressions Knee X-Ray 08/30/23 08:44 IMPRESSION: 1. Mild right knee osteoarthritis. Critical Care Time Critical Care Time Critical Care T
[2023-08-30] MEDS: ACETAMINOPHEN 325 MG TABLET 650 MG PO (08:35)
== END 2023-08-30 09:54 | disposition home or self-care (01) ==
PROVIDERS: Emergency Provider Emergency Medicine; PCP Nurse Practitioner Family
DX: S83.91XA Sprain of unspecified site of right knee, initial encounter (principal); I10 Essential (primary) hypertension; V48.4XXA Person boarding or alighting a car injured in noncollision transport accident, initial encounter
CPT/HCPCS: 73562; 99283; A9270

== ENCOUNTER → 2023-09-27 14:16 | Outpatient (CLI) | payer OTHER, SELFPAY ==
--- NOTE | ~2023-09-27 | MM_ITS ---
EXAMINATION: MM diagnostic mg LT w meka HISTORY: Left breast focal mammographic asymmetry reported on 08/26/2023 TECHNIQUE: Additional 3-D tomosynthesis images of the left breast were performed and synthetic 2-D im ages were generated. CAD analysis was submitted and interpreted. COMPARISON: 08/26/2023, 06/09/2022, 05/26/2022, 05/09/2020 left mammographic images FINDINGS: No suspicious mass, architectural distortion or significant new or developing density is no queenie since 05/09/2020. IMPRESSION: 1. No mammographic evidence of malignancy 2. Routine annual mammographic screening is recommended BI-RADS Category 1: Negative Reviewed, dictated and finalized at location A. LE OPERATOR HEAD
== END ==
PROVIDERS: PCP Physician Assistant; Visit Provider Physician Assistant
DX: R92.8 Other abnormal and inconclusive findings on diagnostic imaging of breast (principal)
CPT/HCPCS: 77061; 77065; G0279

== ENCOUNTER 2023-11-29 21:27 | Emergency (ER) | payer OTHER, SELFPAY ==
--- NOTE | ~2023-11-29 | XR_ITS ---
XR hip RT 2V w AP pelvis 11/29/2023 22:47 Indication: Right hip pain Procedure: AP pelvis and 2 views right hip Comparison: No prior studies for comparison. Findings: Pelvic rings are intact. Sacral foramen are symmetric. No acute fracture or traumatic malal ignment. There is a partially visualized lytic defect of the right femoral diaphysis with sclerotic m argins. Impression: 1: No acute fracture. 2: Partially visualized expansile lytic defect right femoral diaphysis. Recommend correlation with r ight femur series on nonemergent basis. Reviewed, dictated and finalized at location A. Impression: 1: No acute fracture. 2: Partially visualized expansile lytic defect right femoral diaphysis. Recomm end correlation with right femur series on nonemergent basis.
[2023-11-29 21:30] VITALS: BP 118/73; PULSE 61; RESP 18; TEMP 36.6; O2SAT 99
[2023-11-29] MEDS: CYCLOBENZAPRINE HCL 5 MG TABLET PO (22:39)
[2023-11-29] MEDS: KETOROLAC (*BKC) 60 MG/2 ML VIAL IM (22:40)
--- NOTE | 2023-11-29 23:19 | ED.BACK ---
HPI - Back Pain/Injury General Chief Complaint: Back Pain/Injury Stated Complaint: Back and hip injury, shopping carts hit back Time Seen by Provider: 11/29/23 21:41 Source: patient Mode of arrival: ambulatory Limitations: no limitations History of Present Illness HPI Narrative: Patient is a 48-year-old female who presents the ED with report of right lower back pain. 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 She did not fall to the ground. Was sore most of that day. Worse with movement. She then spent several hours in a car the next day driving home. C/o persistent pain in R lower back, intermittently radiating down R leg to knee. Has been taking Tylenol for the pain. Has history of gastric sleeve, unable to take anti-inflammatories. Denies numbness, saddle anesthesia, bowel or bladder incontinence, abdominal pain, dysuria, hematuria, fevers. Related Data Home Medications Medication Instructions Recorded Confirmed lisinopril 20 1 tablet PO DAILY 02/14/23 08/31/23 mg-hydrochlorothiazide 12.5 mg tablet multivitamin 1 tablet PO DAILY 05/24/23 08/31/23 omega-3 fatty acids 1,000 mg PO DAILY 05/24/23 08/31/23 semaglutide 1 mg/dose (4 mg/3 mL) 1 mg subcut WEEKLY 08/31/23 08/31/23 subcutaneous pen injector (Ozempic) Allergies Allergy/AdvReac Type Severity Reaction Status Date / Time NSAIDS (Non-Steroidal AdvReac Unknown Verified 11/29/23 21:36 Anti-Inflamma Review of Systems Review of Systems: CONSTITUTIONAL: Denies fever, chills, or sweats. GASTROINTESTINAL: Denies abdominal pain, nausea, vomiting, or diarrhea. GENITOURINARY: Denies incontinence, dysuria or hematuria. MUSCULOSKELETAL: See HPI. NEUROLOGIC: Denies headache, dizziness, numbness, or weakness. All systems reviewed & are unremarkable except as noted in HPI and below PMFSH Past Medical History Medical History BMI greater than 40 Hypertension Patella-femoral syndrome Right knee pain Vision abnormalities Surgical History Surgical History H/O: hysterectomy 2016 History of arthroscopy of right knee Extensive synovectomy with medial compartment chondroplasty History of 2000 History of carpal tunnel release Carpal tunnel syndrome: performed by Dr. Adelfo Klein in [facility] Right- 2014 Left History of lithotripsy 2009 S/P gastric sleeve procedure Family History Family History Grandparent Cancer Father Hypertension Daughter Depression Social History Social History Smoking status: Never smoker Alcohol intake: never Substance use type: does not use Do You Feel Safe in your Home?: Yes Lack of Transportation: No Lack of Food: Never True Current Housing: I Have Housing Concerned About Future Housing: No Difficulty Paying Gas/Electric Bills: No Difficulty Paying for Meds: No Currently Unemployed: No Education: Master's Degree or Higher Difficulty w/ Childcare or Family Care: No Living arrangements: with family Occupation/Education: occupation 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 HEAD: Normocephalic, atraumatic. RESPIRATORY: Airway patent, respirations nonlabored. Clear to auscultation bilaterally, no rales, rhonchi, wheezing. CARDIOVASCULAR: Regular rate and rhythm without murmurs, rubs, or gallops. ABDOMINAL: Soft, no tenderness throughout abdomen, nondistended. Normoactive BS. MUSCULOSKELETAL: Moves all extremities. No gross
[2023-11-30 00:06] VITALS: BP 123/86; PULSE 67; RESP 19; TEMP 37; O2SAT 99
== END 2023-11-30 00:07 | disposition home or self-care (01) ==
PROVIDERS: Emergency Provider Physician Assistant; PCP Physician Assistant
DX: M54.50 Low back pain, unspecified (principal); M89.9 Disorder of bone, unspecified; I10 Essential (primary) hypertension
CPT/HCPCS: 73502; 96372; 99283; A9270; J1885

== ENCOUNTER 2023-12-17 07:44 | Outpatient (CLI) | payer OTHER, SELFPAY ==
--- NOTE | ~2023-12-17 | XR_ITS ---
XR femur RT min 2V DATE: 12/17/2023 08:01 INDICATION: Abnormality reported at right femoral shaft on November 29, 2023 right hip radiographic exami [facility] TECHNIQUE: AP and lateral views COMPARISON: November 29, 2023 right hip FINDINGS: Mildly expansile groundglass lesion of the mid shaft of the right femur is noted, with scle rotic margin, narrow zone of transition. This measures up to approximately 10.5 cm length. No periosteal reaction is noted. The radiographic features suggest benign process. Consider fibrous d ysplasia, old healed fracture deformity. No fracture, dislocation, Reaction or bone destruction is noted otherwise. IMPRESSION: Groundglass mildly expansile lesion of the mid shaft of the femur with benign radiographi c features are most suggestive of fibrous dysplasia or other benign process Reviewed, dictated and finalized at location A. IMPRESSION: Groundglass mildly expansile lesion of the mid shaft of the femur w ith benign radiographic features are most suggestive of fibrous dysplasia or ot her benign process
== END 2023-12-17 07:45 | disposition home or self-care (01) ==
LOC: ANHIMG 07:45
PROVIDERS: PCP Physician Assistant; Visit Provider Family Medicine
DX: R93.89 Abnormal findings on diagnostic imaging of other specified body structures (principal)
CPT/HCPCS: 73552

== ENCOUNTER 2024-01-03 15:26 | Outpatient (CLI) | payer OTHER, SELFPAY ==
--- NOTE | ~2024-01-03 | MR_ITS ---
EXAMINATION: MR lumbar spine wo con DATE: 01/03/2024 16:03 INDICATION: Lumbar radiculopathy. TECHNIQUE: Magnetic resonance imaging (MRI) of the lumbar spine was performed without intravenous con trast. Sequences included sagittal T2-weighted FSE, sagittal T2-weighted FS FSE, sagittal T1-weighted FSE, and axial T2-weighted FSE. COMPARISON: None FINDINGS: There is 3 degrees levocurvature of lumbar spine. There is 3 mm retrolisthesis of L3 on L4. There is mild chronic anterior wedging of T12-L2 vertebral bodies. There is mildly decreased disc he ight at L4-L5. The distal spinal cord signal intensity is normal. The conus medullaris is at L1. The following disc levels are specifically discussed: L1-L2: There is a central protrusion. There is mild bilateral facet joint osteoarthritis. There is no neural foraminal stenosis. There is mild central canal stenosis. L2-L3: The disc is bulging. There is moderate bilateral facet joint osteoarthritis. There is mild abilio ateral neural foraminal stenosis. There is mild central canal stenosis. L3-L4: The disc is bulging. There is mild bilateral facet joint osteoarthritis. There is mild left ne ural foraminal stenosis. There is mild central canal stenosis. L4-L5: The disc is bulging and has an annular fissure. There is severe bilateral facet joint osteoart hritis. There is mild bilateral neural foraminal stenosis. There is mild central canal stenosis. L5-S1: There is a central protrusion. There is severe bilateral facet joint osteoarthritis. There is mild bilateral neural foraminal stenosis. There is mild central canal stenosis. IMPRESSION: 1. Mild lumbar spondylosis. Reviewed, dictated and finalized at location A. IMPRESSION: 1. Mild lumbar spondylosis.
== END 2024-01-03 15:27 ==
LOC: GOSHIMG 15:29
PROVIDERS: PCP Physician Assistant; Visit Provider Family Medicine
DX: M43.06 Spondylolysis, lumbar region (principal)
CPT/HCPCS: 72148

== ENCOUNTER 2024-04-21 08:27 | Emergency (ER) | payer OTHER, SELFPAY ==
--- NOTE | ~2024-04-21 | US_ITS ---
US right upper quadrant INDICATION: Right upper abdominal pain PROCEDURE: Realtime right upper abdominal ultrasound. COMPARISON: No prior studies for comparison. FINDINGS: The pancreas is normal without focal mass or pancreatic ductal dilation. Liver echotexture is normal without focal mass or intrahepatic biliary dilatation. There is normal directional flow i n the portal vein. The gallbladder is normal without stones, gallbladder wall thickening or pericholecystic fluid. Comm on bile duct measures 3 mm. No sonographic Becerril's sign. IMPRESSION: 1: Normal limited abdominal ultrasound. Reviewed, dictated and finalized at location B.
--- NOTE | ~2024-04-21 | XR_ITS ---
EXAMINATION: XR chest 2V 04/21/2024 08:42 INDICATION: Chest contraction PROCEDURE: 2 view chest COMPARISON: No prior studies for comparison. FINDINGS: The lungs are clear. The cardiomediastinal silhouette is within normal limits. There are no pleural effusions. There is no pneumothorax suspected. IMPRESSION: 1: NO ACUTE CARDIOPULMONARY DISEASE. Reviewed, dictated and finalized at location B.
--- NOTE | 2024-04-21 08:28 | ECG_ITS ---
Test Date: 2024-04-21 08:35:56 Measurements Intervals [place] Rate: 67 P: 44 OR: 187 QRS: 29 QRSD: 96 T: 35 QT: 398 QTc: 420 Interpretive Statements SINUS RHYTHM LOW QRS VOLTAGE [QRS DEFLECTION < 0.5/1.0 mV IN LIMB/CHEST LEADS] No previous ECG available for comparison Electronically Signed On 04-21-2024 14:45:17 CDT by Tiago Hartman M.D.
[2024-04-21 08:29] VITALS: BP 114/70; PULSE 64; RESP 17; TEMP 37.1; O2SAT 98
[2024-04-21 08:40] VITALS: PULSE 64
[2024-04-21 08:42] LABS: Basophils Absolute Auto 0.1 K/mm3 (0.0-0.1); Basophils Percent Auto 0.7 % (0.2-1.2); Eosinophils Absolute Auto 0.2 K/mm3 (0-0.3); Eosinophils Percent Auto 2.7 % (0-4.4); Hematocrit 41.8 % (37.0-47.0); Hemoglobin 13.8 g/dL (12.0-15.0); Immature Granulocyte Absolute 0.02 K/mm3 (0.00-0.031); Immature Granulocyte Percent A 0.2 % (0-0.5); Lymphocytes Absolute Auto 3.81 K/mm3 (0.9-3.2); Lymphocytes Percent Auto 42.9 % (18.3-44.2); Mean Corpuscular Hemoglobin 29.2 pg (26-34); Mean Corpuscular Volume 88.4 fl (80-100); Mean Platelet Volume 12.8 fl (7.4-10.4); Monocytes Absolute Auto 0.6 K/mm3 (0.1-0.6); Monocytes Percent Auto 6.3 % (2.6-8.5); Neutrophils Absolute Auto 4.2 K/mm3 (1.3-6.7); Neutrophils Percent Auto 47.2 % (45.5-73.1); Platelet Count Result 220 k/mm3 (150-375); Red Blood Count 4.73 M/mm3 (4.2-5.4); Red Cell Distribution Width 13.8 % (11.5-14.5); White Blood Count 8.9 K/mm3 (4.5-10.0)
[2024-04-21 08:53] LABS: INR 0.9; Prothrombin Time 12.8 Seconds (11.1-14.7)
[2024-04-21 08:54] LABS: Partial Thromboplastin Time 27.3 Seconds (22.3-36.8)
[2024-04-21 08:55] LABS: Alanine Aminotransferase 12 U/L (6-35); Albumin Level 4.1 g/dL (3.5-5.1); Alkaline Phosphatase 72 U/L (38-126); Anion Gap 8 mmol/L (4-12); Aspartate Amino Transferase 21 U/L (14-36); Bilirubin,Total 0.5 mg/dL (0.2-1.3); Blood Urea Nitrogen 16 mg/dL (7-17); Calcium 9.2 mg/dL (8.4-10.2); Carbon Dioxide 30 mmol/L (22-30); Chloride 96 mmol/L (98-107); Estimated CRCL calculation 89 ml/min; Estimated Glomerular Filt Rate > 60; Glucose 86 mg/dL (65-110); Lipase 111 U/L (23-300); Potassium 3.9 mmol/L (3.4-5.0); Sodium 134 mmol/L (137-145)
[2024-04-21 09:07] LABS: Troponin I < 0.012 ng/mL (0.000-0.034)
[2024-04-21] MEDS: BELLADONNA ALK/PHENOB ELIX 10 ML, MAG HYDROX/ALUMINUM HYD/SIMETH 30 ML, LIDOCAINE HCL 2... PO (09:30)
--- NOTE | 2024-04-21 10:11 | ED.GENADULT ---
HPI - General Adult General Chief complaint: Chest Pain Stated complaint: chest pain Time Seen by Provider: 04/21/24 08:36 History of Present Illness HPI narrative: Patient is a 48-year-old female who presents ER with chest pain. Reports began at 3:00 a.m.. It lasts for 10 seconds at a time. Will become tight in the epigastrium and chest. Insert my radiation to her back. No alleviating factors but she has not tried anything. Denies fevers or chills or sweats. No change with exertion. No dyspnea. No history of gallstones. She is not having any diarrhea or urinary symptoms. Related Data Home Medications Medication Instructions Recorded Confirmed lisinopril 20 1 tablet PO DAILY 02/14/23 08/31/23 mg-hydrochlorothiazide 12.5 mg tablet multivitamin 1 tablet PO DAILY 05/24/23 08/31/23 omega-3 fatty acids 1,000 mg PO DAILY 05/24/23 08/31/23 semaglutide 1 mg/dose (4 mg/3 mL) 1 mg subcut WEEKLY 08/31/23 08/31/23 subcutaneous pen injector (Ozempic) flecainide 50 mg tablet 50 mg PO Q12H 03/28/24 magnesium oxide 200 mg PO DAILY 03/28/24 Allergies Allergy/AdvReac Type Severity Reaction Status Date / Time NSAIDS (Non-Steroidal AdvReac Unknown Verified 03/28/24 08:17 Anti-Inflamma Review of Systems Review of Systems: All systems reviewed & are unremarkable except as noted in HPI and below Constitutional: Constitutional: Reports no additional constitutional complaints ENT: Reports system reviewed and no additional complaints, except as documented Cardiovascular: Cardiovascular: Reports no additional cardiovascular complaints Respiratory: Respiratory: Reports no additional respiratory complaints Genitourinary: Genitourinary: Reports no additional female genitourinary complaints [facility] Past Medical History Medical History BMI greater than 40 Hypertension Patella-femoral syndrome Right knee pain Vision abnormalities Surgical History Surgical History H/O: hysterectomy 2016 History of arthroscopy of right knee Extensive synovectomy with medial compartment chondroplasty History of 2000 History of carpal tunnel release Carpal tunnel syndrome: performed by Dr. Adelfo Klein in [facility] Right- 2014 Left History of lithotripsy 2009 S/P gastric sleeve procedure Family History Family History Grandparent Cancer Father Hypertension Daughter Depression Social History Social History (Updated 03/28/24 @ 08:20 by BUZZ Mayberry) Smoking status: Never smoker Second hand tobacco smoke exposure: No Alcohol intake: never Substance use: never Substance use type: does not use Do You Feel Safe in your Home?: Yes Lack of Transportation: No Lack of Food: Never True Current Housing: I Have Housing Concerned About Future Housing: No Difficulty Paying Gas/Electric Bills: No Difficulty Paying for Meds: No Currently Unemployed: No Education: Master's Degree or Higher Difficulty w/ Childcare or Family Care: No Living arrangements: with family Occupation/Education: occupation 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 HEAD: Normocephalic, atraumatic. ENT: Mucous membranes moist. NECK: Supple. CHEST: Clear to auscultation. No respiratory distress. HEART: Regular rate and rhythm. Normal peripheral pulses. ABDOMEN: Soft, nontender, nondistended. EXTREMITIES: Normal range of motion. No edema. SKIN: Warm, dry, no rash. NEURO: Alert and oriented x3. PSYCH: Normal mood and affect. Course Vital Signs Vital signs: Vital Signs Temperature 98.7 F 04/21/24 08:29 Pulse Ra
[2024-04-21 10:31] VITALS: BP 100/77; PULSE 53; RESP 13; O2SAT 99
== END 2024-04-21 10:33 | disposition home or self-care (01) ==
PROVIDERS: Emergency Provider Emergency Medicine; PCP Nurse Practitioner Family
DX: K21.9 Gastro-esophageal reflux disease without esophagitis (principal); I10 Essential (primary) hypertension
CPT/HCPCS: 36415; 71046; 76705; 80053; 83690; 84484; 85025; 85610; 85730; 93005; 99284; A9270

== ENCOUNTER 2024-09-29 09:54 | Outpatient (CLI) | payer OTHER, SELFPAY ==
--- NOTE | ~2024-09-29 | MM_ITS ---
EXAMINATION: MM screening mg BI w meka HISTORY: Screening TECHNIQUE: Craniocaudal and mediolateral oblique 3-D tomosynthesis images were obtained and synthetic 2-D images were generated. CAD analysis was submitted and interpreted. COMPARISON: Comparison to multiple prior studies sequentially, with oldest reviewed study dated 03/2016. BREAST PARENCHYMAL COMPOSITION: Dense: The breasts are heterogeneously dense, which may obscure small masses FINDINGS: There is no evidence of suspicious mass, calcification, or architectural distortion to sugg est malignancy in either breast. There has been no suspicious interval change. IMPRESSION: 1. No mammographic evidence of malignancy. 2. Recommend routine screening mammography in one year. BI-RADS Category 1: Negative Reviewed, dictated and finalized at location B. [employer]
== END 2024-09-29 09:55 | disposition home or self-care (01) ==
LOC: MICIMG 09:56
PROVIDERS: PCP Nurse Practitioner Family; Visit Provider Physician Assistant
DX: Z12.31 Encounter for screening mammogram for malignant neoplasm of breast (principal)
CPT/HCPCS: 77063; 77067

== ENCOUNTER 2025-05-28 18:28 | Emergency (ER) | payer OTHER, SELFPAY ==
--- OUTSIDE RECORDS SUMMARY | 2023-07-13 09:20 | XMS_ITS | Continuity of Care Document ---
Author Organization [facility] Address [address] [place] [address] Phone Care Team Providers Care Group Sales Manager Name Role Phone Carl Vega Unavailable Unavailable Procedures Procedure Date Progress Note Therapeutic Activities Neuromuscular Re-Ed Therapeutic Exercise Electrical Stimulation Therapeutic Activities Neuromuscular Re-Ed Therapeutic Exercise Electrical Stimulation Therapeutic Activities Neuromuscular Re-Ed Manual Therapy Hot or Cold Pack PT Evaluation Moderate Complexity Neuromuscular Re-Ed Therapeutic Exercise Hot or Cold Pack Advance Directives Directive Yes / No Effective Date File Name No Information Encounters Encounter Description Practice Location Reason(s) For Visit Diagnoses Date Provider Providers Copied on Encounter [facility], [id number], tel:[phone] [place] No Information 3 Chey Hays [address], [address], [place], [address], . tel: [phone] [facility], [place], [place], [id number], tel:[phone] [place] No Information 3 Chey Hays [address], [address], [place], [facility], . tel: [phone] [address], [id number], tel:[phone] [place] No Information 3-202 [address] Dylonl Carl. [address] [place] [address], [facility] [address], [place], [facility], . tel: [phone] [address], [id number], tel:[phone] [place] No Information 0 3 Chey Henry. [address] [place] [address], [facility] [address], [place], [facility], . tel: [phone] [address], [id number], tel:[phone] [place] No Information 8 3 Chey Henry. [address] [place] [address], [facility] [address] [address], . tel: [phone] Family History Family Member Type Diagnosis Age At Onset No Information Payers Payer name Insurance type Covered republican ID Klarissa cote(s) [facility] [id number] Social History Type Description Quantity Date Captured Comments Sex Female Smoking Status No Information Chief Complaint And Reason For Visit No Information Reason For Referral Reason For Referral No Information History Of Present Illness Encounter Date Complaint History Of Prese nt Illness No Information Functional Status Date Functional Assessmen t No Information Instructions Date Instruction Additional Infor mation Dietary needs education Related to Overweight Prescribed activity/exercise edu cation Related to Overweight Assessments Type Assessment Date No Information Patient Care Teams Name Effective Dates (start - stop) Status Members No Information
--- OUTSIDE RECORDS SUMMARY | 2023-07-13 09:20 | XMS_ITS | Continuity of Care Document ---
Author Organization [facility] Address [address] [place] [address] Phone Care Team Providers Care Acid Tank Cleaner Name Role Phone Carl Vega Unavailable Unavailable [...] Diagnoses Date Provider Providers Copied on Encounter [facility], [id number], tel:[phone] [place] No Information 3 Chey Hays [address], [address], [place], [address], . tel: [phone] [facility] [facility] [address], [place], [place], [id number], tel:[phone] [place] No Information 3 Chey Hays [address], [address], [place], [facility], . tel: [phone] [address], [id number], tel:[phone] [place] No Information 3-202 3 Dylonl Carl. [address] [place] [address], [facility] [address], [place], [facility], . tel: [phone] [address], [id number], tel:[phone] [place] No Information 0 3 Chey Henry. [address] [place] [address], [facility] [address], [place], [facility], . tel: [phone] [address], [id number], tel:[phone] [place] No Information 8 3 Chey Henry. [address] [place] [address], [facility] [address] [address], . tel: [phone] Family History Family Member Type Diagnosis Age At Onset No Information Payers Payer name Insurance type Covered libertarian ID Klarissa cote(s) [facility] [id number] Social History Type Description Quantity Date Captured [...]
--- OUTSIDE RECORDS SUMMARY | 2025-05-27 07:30 | XMS_ITS | Encounter Summary ---
Author Organization [facility] Address [address] [place] [address] Care Team Providers Care Product Scientist Name Role Phone Yissel Santacruz LAURIE Primary Care Provider [phone] Reason for Visit * Auth/Cert (Routine) Specialty Diagnoses / Procedures Referred By Dewey easley Referred To Contact Diagnoses Encounter for screening colonoscopy Encounter for screening colonoscopy [Z12.11] Procedures NE COLONOSCOPY FLX DX W/COLLJ SPEC WHEN PFRMD COLONOSCOPY Referral ID Status Reason Start Date Expiration Date Visits Re quested Visits Authorized [id number] 1 1 Encounter Details Date Type Department Care Team (Latest Contact Info) Description 05/27/2025 7:30 AM CDT - 05/27/2025 9:40 AM CD[place] [address] Eladio Hunt MD [address] [place] [address] Encounter for screening colonoscopy Discharge Disposition: Discharge to home or self care Social History Tobacco Use Types Packs/Day Years Used Date Smoking Tobacco: Never Passive Smoke Exposure: Never Smokeless Tobacco: Never Alcohol Use Standard Drinks/Week Comments Never 0 (1 standard drink = 0.6 oz pur e alcohol) PHQ-2 Answer Date Recorded PHQ-2 Total Score (If total score is 3 or more points, staff should administer the PHQ-9) 0 05/10/2025 AUDIT-C Answer Date Recorded Q1: How often do you have a drink containing alcohol? Never 05/27/2025 Q2: How many drinks containi ng alcohol do you have on a typical day when you are drinking? Patient does not drink Q3: How often do you have si x or more drinks on one occasion? Never 05/27/2025 Personal Safety Answer Date Recorded Have you ever been in or are you currently in a harmful physical or emotional relationship or is someone making you feel afraid or unsafe? Denies 05/27/2025 Comments No Sex and Gender Information Value Date Recorded Sex Assigned at Not on file Legal Sex Female 3:43 AM [employer] Gender Identity Female 01/04/2022 6:05 AM CDT Sexual Orientation Straight 01/04/2022 6: 05 AM CDT documented as of this encounter Last Filed Vital Signs Vital Sign Reading Time Taken Comments Blood Pressure 118/91 05/27/2025 9:20 AM CDT Pulse 51 05/27/2025 9:25 AM CDT Temperature 36 C (96.8 F) 05/27/2025 8:52 AM CDT Respiratory Rate 14 05/27/2025 9:25 AM CDT Oxygen Saturation 99% 05/27/2025 9:25 AM CDT Inhaled Oxygen Concentration - - Weight 95.3 kg (210 lb) 05/27/2025 7:43 AM CDT Height 154.9 cm (5' 1) 05/27/2025 7:43 AM CDT Body Mass Index 39.68 05/27/2025 7:43 AM CDT documented in this encounter Functional Status * AUDIT-C Score Answer Date of Assessment Author 0 05/27/2025 7:56 AM CDT Bronson Saucedo RN * Question Answer Date of Assessment Author Q1: How often do you have a drink containing alcohol? Never 05/27/2025 7:56 AM CDT Mikayla Saucedo RN Q2: How many drinks containing alcohol do you have on a typical day when you are drinking? Patient does not drink 05/27/2025 7:56 AM MELANIAT Mikayla Saucedo RN Q3: How often do you have six or more drinks on one occasion? Never 05/27/2025 7:56 AM MELANIAT Mikayla Saucedo RN documented as of this encounter Medications at Time of Discharge calcium-vitamin D3-vitamin K 500-100-40 mg-unit-mcg tablet,chewable Take by mouth multivitamin with iron tablet Take 1 tablet by mouth daily omega-3 fatty acids 500 mg capsule Take by mouth ondansetron (ZOFRAN) 4 mg tabletIndications :Nausea and vomiting, unspecified vomiting type Take 1 tablet (4 mg) total 30 minutes before starting colonoscopy prep. Use the 2nd tablet as needed for nausea and vomiting. 2 tablet 05/16/2025 rosuvastatin (CRESTOR) 5 mg tabletIndications :Hyperlipidemia associated with type 2 diabetes mellitus (HCC) Take 1 tablet (5 mg total) by mouth daily 90 tablet 3 05/10/2025 tirzepatide (Mounjaro) 10 mg/0.5 mL pen injector injectionIndicati ons:type 2 diabetes mellitus Inject 0.5 mL (10 mg total) under the skin every 7 days 2 mL 3 05/10/2025 documented as of this encounter Discharge Disposition Disposition Code Departure Means Destination Comment s Discharge to home or self care Private Vehicle documented in this encounter H&P Notes * Eladio Hunt MD - 05/27/2025 8:16 AM CDT Gastroenterology History and Physical SUBJECTIVE: Patient is a 50 y.o. female for colonoscopy INDICATIONS: screening for colon cancer Past Medical History: Diagnosis Date Diabetes mellitus Gestational-2010, diabetes 2020-controlled with ozempic/diet Hyperlipidemia Hypertension Kidney stone Morbid obesity (HCC) Medications Prior to Admission Medication Sig Dispense Refill Last Dose/Taking calcium-vitamin D3-vitamin K 500-100-40 mg-unit-mcg tablet,chewable Take by mouth 05/20/2025 multivitamin with iron tablet Take 1 tablet by mouth daily 05/20/2025 omega-3 fatty acids 500 mg capsule Take by mouth 05/20/2025 ondansetron (ZOFRAN) 4 mg tablet Take 1 tablet (4 mg) total 30 minutes before starting colonoscopy prep. Use the 2nd tablet as needed for nausea and vomiting. 2 tablet 0 05/26/2025 rosuvastatin (CRESTOR) 5 mg tablet Take 1 tablet (5 mg total) by mouth daily 90 tablet 3 05/26/2025 tirzepatide (Mounjaro) 10 mg/0.5 mL pen injector injection Inject 0.5 mL (10 mg total) under the skin every 7 days 2 mL 3 05/25/2025 Allergies Allergen Reactions Adhesive Redness Redness and itching with Dermabond Nsaids (Non-Steroidal Anti-Inflammatory Drug) Other (See comments) Gastric sleeve surgery Review of Systems: Respiratory: negative Cardiovascular: negative Gastrointestinal: negative OBJECTIVE: Vitals: 05/27/25 0743 BP: 134/90 Pulse: 64 Resp: 16 Temp: 36.4 ??C (97.6 ??F) SpO2: 100% General Appearance: Well-developed, no distress Lungs: Clear to auscultation bilaterally, respirations unlabored Cardiovascular: Regular rate and rhythm, S1 and S2 normal Abdomen: Soft, non-tender, bowel sounds active all four quadrants, no masses, no organomegaly, non-distended Neurologic: Alert & oriented x 3 PLAN: colonoscopy The risks (risks of bleeding, infection, perforation requiring surgery, missed polyps/cancer, dental injury, aspiration pneumonia, anesthesia complications such as drug reaction and cardiopulmonary complications including rare chance of ), benefits, and alternatives of the planned procedure were explained to the patient who understands and consents to having procedure done. Eladio Hunt MD documented in this encounter Procedure Notes * Eladio Hunt MD - 05/27/2025 8:23 AM CDTAssociated Order(s): COLONOSCOPY [facility] Patient Name: Iliana Ochoa Procedure Date: 05/27/2025 8:23 AM Date of : 1975 Admit Type: Outpatient Age: 50 Gender: Female Attending MD: Eladio Hunt M.D., Room: [facility] PROCEDURE 1 Note Status: Finalized Procedure: Colonoscopy Indications: Screening for colorectal malignant neoplasm Referring MD: Yissel Santacruz NP Providers: Eladio Hunt M.D. Medicines: Monitored Anesthesia Care Complications: No immediate complications. Estimated blood loss: None. Estimated Blood Loss: Estimated blood loss: none. Procedure: The benefits, risks and alternatives of the procedure and sedation were discussed and informed consent was obtained. All questions were answered. Please refer to the signed informed consent document in the medical record. The scope was passed under direct vision. The [id number]-[id number] COLONOSCOPE was introduced through the anus and advanced to the terminal ileum. The colonoscopy was performed without difficulty. The patient tolerated the procedure well. The quality of the bowel preparation was good. Findings: A diminutive (1-3 mm) polyp was found in the descending colon. The polyp was sessile. The polyp was removed with a cold biopsy forceps. Resection and retrieval were complete. Scattered small-mouthed diverticula were found in the sigmoid colon and descending colon. Internal hemorrhoids were found during retroflexion. The hemorrhoids were mild. Impression: - One diminutive (1-3 mm) polyp in the descending colon, removed with a cold biopsy forceps. Resected and retrieved. - Diverticulosis in the sigmoid colon and in the descending colon. - Internal hemorrhoids. Recommendation: - Await pathology results. - Timing of repeat colonoscopy to be based on pathology results. Further recommendations to follow once pathology results available. - High fiber diet. Eladio Hunt M.D. Eladio Hunt M.D. 05/27/2025 8:52:27 AM . Number of Addenda: 0 Note Initiated On: 05/27/2025 8:23 AM documented in this encounter Miscellaneous Notes * Pre-Procedure Instructions - Florence Kruse RN - 05/20/2025 3:04 PM CDT - No alcohol or smoking 12 hours before surgery - [place] teeth in the morning but don't swallow any of the water - Shower or bathe, don't apply powders or lotions - Expect to remove wigs, dentures, partials, contact lenses, body piercing's, and hair accessories containing metal - Leave all jewelry and valuables at home - Bring your glasses and hearing aides - Make plans for a responsible adult to bring you home - Bring a living will or POA paperwork if you have it - Follow GI physician instructions regarding blood thinners and vitamins - Bring inhalers - Take prep according to GI physician - Please take the following medications with a sip of water the AM of the procedure: none - Covid: none Location ([facility], [address] [place] [address]), arrival time (0730), procedure time (0830), NPO status (nothing to eat or drink after midnight the night before the procedure) also reviewed. Patient expressing understanding of all pre-op instructions. documented in this encounter Plan of Treatment Not on file documented as of this encounter Procedures Procedure Name Priority Date/Time Associated Diagnosis Comments POCT GLUCOSE DEVICE Routine 05/27/2025 9 :10 AM CDT SURGICAL PATHOLOGY Routine 05/27/2025 8: 46 AM CDT Encounter for screening colonoscopy COLON BIOPSY 05/27/2025 8:25 AM CDT Encounter for screening colonoscopy COLONOSCOPY 05/27/2025 8:23 AM CDT POCT GLUCOSE DEVICE Routine 05/27/2025 7 :52 AM CDT documented in this encounter Results * POCT glucose (05/27/2025 9:10 AM CDT) Glucose, POC 83 70 - 199 mg/dL Blood 05/27/2025 9:10 AM CDT 05/27/2025 9:10 AM CDT us Eladio Hunt MD LAB POCT ORDERABLES - DEVICE Final Result [facility] [address] [place] [address] * Surgical pathology (05/27/2025 8:46 AM CDT) Tissue (Colon, Biopsy) 05/27/2025 8:46 AM CDT Narrative PATHOLOGY [facility] FOR [facility] - 05/28/2025 4:[address] PM CD[address] [facility] Department of Pathology [address] [place] [id number] Note to Patients: This report may contain a detailed description of human tissue sent by a health care provider to the laboratory for pathologic evaluation. The content of this report is essential for diagnosis and may provide important critical findings. This information may be unfamiliar to patients to review without a medical professional present. It is advised that the patient review this report in the presence of a health care provider who can answer questions and explain the details. Final Report Patient Name: ILIANA OCHOA : 1975 (Age: 50) Gender: F Address: [address] [place] [address] [facility] #: [id number] Service: Gastro Location: Patient Type: [facility] OUTPATIENT Taken: 05/27/2025 Received: 05/27/2025 Accessioned: 05/27/2025 Reported: 05/28/2025 Physician(s): Meka Turner NP Diagnosis: A. Large bowel, descending colon polyp, cold biopsy - Hyperplastic polyp Gerry Corona MD PhD Report Electronically Reviewed and Signed Out By Gerry Corona MD PhD 05/28/2025 16:30:42 Specimen(s) Received: A: Descending colon polyp biopsy cold biopsy Microscopic Description: Unless gross-only is specified, the final diagnosis for each specimen is based on a microscopic examination of each tissue sample. Clinical History: The patient is a 50-year-old woman presenting for colon cancer screening. Operative procedure: Colonoscopy with biopsy. Gross Description Received in formalin, labeled with the patient s identifiers and descending colon polyp biopsy-cold biopsy and consists of a 0.4 cm farfan-red tissue fragment, which is entirely submitted. Labeled A1. Jar 0. [facility]/05/27/2025 14:37 EBONY Brower, PA (ASCP) Microscopic slide review and interpretation for this case was performed at [facility], Department of Surgical Pathology, [address] [facility], [place] [id number], [place] [address] CLIA # [id number] Eladio Hunt MD LAB PATHOLOGY ORDERABLES Fin al Result PATHOLOGY [facility] * Colonoscopy (05/27/2025 8:23 AM CDT) Anatomical Region Laterality Modality Other Narrative Procedure Note Eladio Hunt MD - 05/27/2025 8:23 AM CDT [facility] Patient Name: Iliana Ochoa Procedure Date: 05/27/2025 8:23 AM Date of : 1975 Admit Type: Outpatient Age: 50 Gender: Female Attending MD: Eladio Hunt M.D., Room: [facility] EOC PROCEDURE 1 Note Status: Finalized Procedure: Colonoscopy Indications: Screening for colorectal malignant neoplasm Referring MD: Yissel Santacruz NP Providers: Eladio Hunt M.D. Medicines: Monitored Anesthesia Care Complications: No immediate complications. Estimated blood loss:None. Estimated Blood Loss: Estimated blood loss: none. Procedure: The benefits, risks and alternatives of theprocedure and sedation were discussed and informed consentwas obtained. All questions were answered. Please referto the signed informed consent document in the medical record. The scope was passed under direct vision.The PCF-[id number] COLONOSCOPE was introduced through theanus and advanced to the terminal ileum. The colonoscopy was performed without difficulty. The patient tolerated the procedure well. The quality of thebowel preparation was good. Findings: A diminutive (1-3 mm) polyp was found in the descending colon. Thepolyp was sessile. The polyp was removed with a cold biopsy forceps.Resection and retrieval were complete. Scattered small-mouthed diverticula were found in the sigmoid colonand descending colon. Internal hemorrhoids were found during retroflexion. The hemorrhoids were mild. Impression: - One diminutive (1-3 mm) polyp in the descending colon, removed with a cold biopsy forceps. Resected and retrieved. - Diverticulosis in the sigmoid colon and in the descending colon. - Internal hemorrhoids. Recommendation: - Await pathology results. - Timing of repeat colonoscopy to be based on pathology results. Further recommendations tofollow once pathology results available. - High fiber diet. Eladio Hunt M.D. Eladio Hunt M.D. 05/27/2025 8:52:27 AM . Number of Addenda: 0 Note Initiated On: 05/27/2025 8:23 AM Eladio Hunt MD ENDOSCOPY PROCEDURES Final R esult * POCT glucose (05/27/2025 7:52 AM CDT) Glucose, POC 81 70 - 199 mg/dL Blood 05/27/2025 7:52 AM CDT 05/27/2025 7:52 AM CDT Eladio Hunt MD LAB POCT ORDERABLES - DEVICE Final Result [facility] Department [place] [address] documented in this encounter Visit Diagnoses Diagnosis Encounter for screening colonoscopy- Primary documented in this encounter Admitting Diagnoses Diagnosis Encounter for screening colonoscopy documented in this encounter Administered Medications Inactive Administered Medications - up to 3 most recent administrations Medication Order MAR Action Action Date Dose Rate Site dextrose (D10W) 10% bolus 250 mL 250 mL, intravenous, at 999 mL/hr, Administer over 15 Minutes, Every 15 min PRN, blood glucose less than 70 mg/dL and UNABLE to swallow/take PO glucose/juice., Starting on Tue05/27/25 at 0907, Phase I, After treatment for hypoglycemia, recheck BG followed by treatment every 15 minutes until the BG is greater than 100 mg/dL. Then check BG 1 hour post treatment. If BG is less than 100 mg/dL, repeat Q15 minute BG checks and treatment. Call MD for each episode of hypoglycemia., Indications: hypoglycemic disorderIndications:hypoglycemic disorder dextrose (GLUTOSE) 40 % gel 15 g 15 g, oral, Every 15 min PRN, low blood sugar, blood glucose less than 70 mg/dL, Starting on Tue05/27/25 at 0907, Phase I, If patient is alert and able to eat/drink, give 15 gm glucose or one juice (4 fluid ounces) NOT ORANGE JUICE. After treatment for hypoglycemia, recheck BG followed by treatment every 15 minutes until the BG is greater than 100 mg/dL. Then check BG 1 hour post-treatment. If BG is less than 100 mg/dL, repeat Q15 minute BG checks and treatment. Call MD for each episode of hypoglycemia. INVOICE CHECKER STATES GLUTOSE-15 CONTAINS GLUCOSE 40% W/W (50% W/V), Indications: hypoglycemic disorderIndications:hypoglycemic disorder Lactated Ringer's (LR) infusion 30 mL/hr, intravenous, Continuous, Starting on Tue05/27/25 at 0830, Pre-Op New Bag 05/27/2025 8:25 AM CDT documented in this encounter Active and Recently Administered Medications Times are shown in CDT. Continuous Medication Order 05/25/2025 05/26/2025 05/27/2025 Lactated Ringer's (LR) infusion 30 mL/hr, intravenous, Continuous, Starting on Tue05/27/25 at 0830, Pre-Op 0825 (New Bag - Prov ider: Josue Ayala CRNA)0849 (Anesthesia Volume Adjustment - Provider: Josue Ayala CRNA)0930 (Stopped - Provider: Mikayla Saucedo RN - Comment: 800mls total) Lactated Ringer's (LR) infusion 125 mL/hr, intravenous, Continuous, Starting on Tue05/27/25 at 0945, Phase I PRN Medication Order 05/25/2025 05/26/2025 05/27/2025 dextrose (D10W) 10% bolus 250 mL(Linked Group 1) 250 mL, intravenous, at 999 mL/hr, Administer over 15 Minutes, Every 15 min PRN, blood glucose less than 70 mg/dL and UNABLE to swallow/take PO glucose/juice., Starting on Tue05/27/25 at 0907, Phase I, After treatment for hypoglycemia, recheck BG followed by treatment every 15 minutes until the BG is greater than 100 mg/dL. Then check BG 1 hour post treatment. If BG is less than 100 mg/dL, repeat Q15 minute BG checks and treatment. Call MD for each episode of hypoglycemia., Indications: hypoglycemic disorder dextrose (GLUTOSE) 40 % gel 15 g(Linked Group 1) 15 g, oral, Every 15 min PRN, low blood sugar, blood glucose less than 70 mg/dL, Starting on Tue05/27/25 at 0907, Phase I, If patient is alert and able to eat/drink, give 15 gm glucose or one juice (4 fluid ounces) NOT ORANGE JUICE. After treatment for hypoglycemia, recheck BG followed by treatment every 15 minutes until the BG is greater than 100 mg/dL. Then check BG 1 hour post-treatment. If BG is less than 100 mg/dL, repeat Q15 minute BG checks and treatment. Call MD for each episode of hypoglycemia. INVOICE CHECKER STATES GLUTOSE-15 CONTAINS GLUCOSE 40% W/W (50% W/V), Indications: hypoglycemic disorder glucagon injection 1 mg 1 mg, intramuscular, Every 30 min PRN, low blood sugar, blood glucose less than 70 mg/dL AND no IV access AND unable to take PO glucose/juice., Starting on Tue05/27/25 at 09, Phase I, After Glucagon is administered, position patient on side if possible to avoid aspiration. Obtain IV access. Follow glucagon treatment with glucose treatment or IV dextrose. After treatment for hypoglycemia, recheck BG followed by treatment every 15 minutes until the BG is greater than 100 mg/dL. Then check BG 1 hour post treatment. If BG is less than 100 mg/dL, repeat Q15 minute BG checks and treatment. Call MD for each episode of hypoglycemia. Reconstitute 1 mg vial with 1 mL SWFI. Use immediately following reconstitution. insulin lispro (HumaLOG, ADMELOG) 100 unit/mL injection 0-5 Units 0-5 Units, subcutaneous, Once as needed, high blood sugar, Starting on Tue05/27/25 at 0907, For 1 dose, Phase I, Blood glucose mg/dL: 149 or less: No insulin 150-199: add 1 unit 200-249: add 2 units 250-299: add 3 units 300-349: add 4 units and notify physician for adjustment of insulin orders. 350-399: add 5 units and notify physician for adjustment of insulin orders. Over 400: Notify physician for adjustment of insulin orders. Do NOT hold for NPO Status, Indications: Stress Hyperglycemia lidocaine (XYLOCAINE) 10 mg/mL (1 %) injection 2-10 mg 2-10 mg (0.2-1 mL), other, Once as needed, pain with IV placement, Starting on Tue05/27/25 at 0750, For 1 dose, Pre-Op, Administer volume needed to infiltrate IV site. naloxone (NARCAN) 0.4 mg/mL injection 0.04-0.4 mg 0.04-0.4 mg, intravenous, Once as needed, other, excessive sedation/respiratory depression, Starting on Tue05/27/25 at 0907, For 1 dose, Phase I, Dilute 0.4 mg with 9 mL NS (final concentration 0.04 mg/mL). For respiratory depression (respiratory rate less than 6), administer 0.4 mg IVP over 30 seconds. For excessive sedation administer 0.04 mg (1 mL) every 1 minute until desired level of alertness. For IV, administer over 30 seconds., Indications: Opioid Toxicity Linked Groups Order Group 1: dextrose (GLUTOSE) 40 % gel 15 gJump to med 15 g, oral, Every 15 min PRN, low blood sugar, blood glucose less than 70 mg/dL, Starting on Tue05/27/25 at 09, Phase I, If patient is alert and able to eat/drink, give 15 gm glucose or one juice (4 fluid ounces) NOT ORANGE JUICE. After treatment for hypoglycemia, recheck BG followed by treatment every 15 minutes until the BG is greater than 100 mg/dL. Then check BG 1 hour post-treatment. If BG is less than 100 mg/dL, repeat Q15 minute BG checks and treatment. Call MD for each episode of hypoglycemia. INVOICE CHECKER STATES GLUTOSE-15 CONTAINS GLUCOSE 40% W/W (50% W/V), Indications: hypoglycemic disorder Or dextrose (D10W) 10% bolus 250 mLJump to med 250 mL, intravenous, at 999 mL/hr, Administer over 15 Minutes, Every 15 min PRN, blood glucose less than 70 mg/dL and UNABLE to swallow/take PO glucose/juice., Starting on Tue05/27/25 at 09, Phase I, After treatment for hypoglycemia, recheck BG followed by treatment every 15 minutes until the BG is greater than 100 mg/dL. Then check BG 1 hour post treatment. If BG is less than 100 mg/dL, repeat Q15 minute BG checks and treatment. Call MD for each episode of hypoglycemia., Indications: hypoglycemic disorder documented in this encounter Orders Medications Ordered That Chuck ht Not Have Been Administered Count Last Ordered Date First Ordered Date dextrose (D10W) 10% bolus 250 mL 1 05/27/20 25 dextrose (GLUTOSE) 40 % gel 15 g 1 05/27/20 glucagon injection 1 mg 1 05/27/2025 insulin lispro (HumaLOG, ADM ELOG) 100 unit/mL injection 0-5 Units 1 05/27/2025 Lactated Ringer's (LR) infusion 2 lidocaine (XYLOCAINE) 10 mg/ mL (1 %) injection 2-10 mg 1 05/27/2025 naloxone (NARCAN) 0.4 mg/mL injection 0.04-0.4 mg 1 05/27/2025 documented in this encounter Care Teams Product Scientist Relationship Specialty Start Date End Date Yissel Santacruz NP [id number] [facility] [address] [place] [address] PCP - General Internal Medicine 05/10/25 documented as of this encounter
--- OUTSIDE RECORDS SUMMARY | 2025-05-27 07:30 | XMS_ITS | Encounter Summary ---
Author Organization [facility] Address [address] [place] [address] Care Team Providers Care Companion Caregiver Name Role Phone Yissel Santacruz LAURIE Primary Care Provider [phone] Reason for Visit * Auth/Cert (Routine) Specialty Diagnoses / Procedures Referred By Dewey easley Referred To Contact Diagnoses Encounter for screening colonoscopy Encounter for screening colonoscopy [Z12.11] Procedures DC COLONOSCOPY FLX DX W/COLLJ SPEC WHEN PFRMD COLONOSCOPY Referral ID Status Reason Start Date Expiration Date Visits Re quested Visits Authorized [id number] 1 1 Encounter Details Date Type Department Care Team (Latest Contact Info) Description 05/27/2025 7:30 AM CDT - 05/27/2025 9:40 AM [place] [address] Eladio Hunt MD [address] [place] [address] Encounter for screening colonoscopy Discharge Disposition: Discharge [...] on file 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 The [id number]-[id number] COLONOSCOPE was introduced through the anus and [...] or smoking 12 hours before surgery - Lockhart teeth in the morning but don't swallow [...] the procedure: none - Covid: none Location ([facility], [address] [place] [address]), arrival time (0730), procedure time (0830), NPO [...] POCT ORDERABLES - DEVICE Final Result ZORAN [address] Department [place] [address] * Surgical pathology (05/27/2025 8:46 AM CDT) Tissue (Colon, Biopsy) 05/27/2025 8:46 AM CDT Narrative PATHOLOGY TEMP LLB FOR ASP - 05/28/2025 4:30 PM CDT [facility] Department of Pathology [address] [place] [id number] Note to Patients: This report may contain [...] : 1975 (Age: 50) Gender: F Address: [address] [place] [address] [facility] Center #: [id number] Service: Gastro Location: Patient Type: [facility] OUTPATIENT Taken: 05/27/2025 Received: 05/27/2025 Accessioned: 05/27/2025 [...] biopsy and consists of a 0.4 cm farafn-red tissue fragment, which is entirely submitted. Labeled A1. Jar 0. [facility]/05/27/2025 14:37 EBONY Brower, PA (ASCP) Microscopic slide review and interpretation for this case was performed at [facility], Department of Surgical Pathology, [address] [facility], [place] [id number], [place] [address] CLIA # [id number] Eladio Hunt MD LAB PATHOLOGY ORDERABLES Fin al Result PATHOLOGY TEMP LLB FOR ASP * Colonoscopy (05/27/2025 8:23 AM CDT) Anatomical Region Laterality Modality Other Narrative Procedure Note Eladio Hunt MD - 05/27/2025 8:23 AM CDT [facility] Patient Name: Iliana Ochoa [...] The scope was passed under direct vision.The PCF-[id number] COLONOSCOPE was introduced through theanus and advanced [...] POCT ORDERABLES - DEVICE Final Result ZORAN [facility] [place] [address] documented in this encounter Visit Diagnoses Diagnosis [...] Call MD for each episode of hypoglycemia. DIRECTOR BIOLOGY STATES GLUTOSE-15 CONTAINS GLUCOSE 40% W/W (50% [...] Call MD for each episode of hypoglycemia. DIRECTOR BIOLOGY STATES GLUTOSE-15 CONTAINS GLUCOSE 40% W/W (50% [...] Call MD for each episode of hypoglycemia. DIRECTOR BIOLOGY STATES GLUTOSE-15 CONTAINS GLUCOSE 40% W/W (50% [...] 05/27/2025 documented in this encounter Care Teams Companion Caregiver Relationship Specialty Start Date End Date Yissel Santacruz NP [address] [facility] [address] [place] [address] PCP - General Internal Medicine 05/10/25 documented as of this encounter
--- OUTSIDE RECORDS SUMMARY | 2025-05-27 08:25 | XMS_ITS | Encounter Summary ---
Author Organization [facility] Address [address] [place] [address] Care Team Providers Care First Officer Name Role Phone Yissel Santacruz LAURIE Primary Care Provider [phone] Reason for Visit * Auth/Cert (Routine) Specialty Diagnoses / Procedures Referred By Dewey easley Referred To Contact Diagnoses Encounter for screening colonoscopy Encounter for screening colonoscopy [Z12.11] Procedures DC COLONOSCOPY FLX DX W/COLLJ SPEC WHEN PFRMD COLONOSCOPY Referral ID Status Reason Start Date Expiration Date Visits Re quested Visits Authorized [id number] 1 1 Encounter Details Date Type Department Care Team (Late st Contact Info) Description 05/27/2025 8:25 AM CDT Anesthesia Event [address] [address] Eladio Hunt MD [address] [place] [address] [address] [place] [address] Josue Ayala CRNA [address] [place] [address] Anesthesia Record Procedure Summary Procedure Name Responsible Anesthesiologist Anesthesia Start Time Anesthesia Stop Time COLON BIOPSY (Colon) Eladio Hunt MD 05/27/25 0825 05/27/25 0851 Events Date Time Event Comment 05/27/2025 0825 An Start 0825 An Start Data 0825 In Room 0828 Patient Positioned Laterally 0828 An Induction The patient was reevaluated immediately before moderate or deep sedation use and before anesthesia induction. 0830 Proc Start 0830 Anesthesia Ready 0849 Proc Fin 0850 an stop data 0851 Handoff to RN I completed my handoff to the receiving nurse during which we: 1. Patient identified 2. Responsible provider identified 3. Pertinent medical history reviewed 4. Procedure type and surgical course discussed 5. Intraoperative anesthetic management and any significant issues discussed 6. Expectations and concerns for postop period discussed 7. Questions solicited from receiving nurse 8. Patient disposition at the time of handoff: PACU 0851 An Stop 0852 Out of Room Meds Name Total propofol 260 mg lidocaine (cardiac) syringe 2 % 50 mg Lactated Ringer's (LR) infusion 600 mL * Agents Name O2% N2O O2 * Blood No blood administrations on file. 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 Never 05/27/2025 7:56 AM MELANIAT Mikayla Saucedo RN documented as of this encounter OR Notes * Anesthesia Postprocedure Evaluation - Josue Ayala CRNA - 05/27/2025 9:08 AM CDT Patient: Iliana Ochoa Procedure Summary Date: 05/27/25 Room / Location: [facility] EOC PROCEDURE 1 / [facility] EOC ENDOSCOPY Anesthesia Start: 824 Anesthesia Stop: 850 Procedure: COLON BIOPSY (Colon) Diagnosis: Encounter for screening colonoscopy (Encounter for screening colonoscopy [Z12.11]) Providers: Eladio Hunt MD Responsible Provider: Eladio Hunt MD Anesthesia Type: MAC ASA Status: 3 Anesthesia Type: MAC Last vitals Vitals Value Taken Time BP 118/94 05/27/25 09:05 Temp 36 ??C (96.8 ??F) 05/27/25 08:52 Pulse 58 05/27/25 09:07 Resp 14 05/27/25 09:07 SpO2 99 % 05/27/25 09:07 Vitals shown include unfiled device data. Anesthesia Post Evaluation Patient location during evaluation: PACU Patient participation: complete - patient participated Level of consciousness: follows simple commands and fully awake Pain management: adequate Airway patency: adequate Cardiovascular status: acceptable and hemodynamically stable Respiratory status: acceptable Hydration status: acceptable Pt is: normothermic Nausea/Vomiting status: none No notable events documented. * Anesthesia Preprocedure Evaluation - Josue Ayala CRNA - 05/27/2025 8:01 AM CDT Images from the original note were not included. Anesthesia Evaluation Iliana Ochoa is a 50 y.o. female COLONOSCOPY (Colon) Pre-Op Diagnosis Codes: * Encounter for screening colonoscopy [Z12.11] HISTORY Past Medical History Information obtained from: patient. Information obtained during: In Person Neurological + Neuromuscular disease Cardiovascular + Hypertension - hypertension. Respiratory Pertinent negatives: asthma Hepatic / Heme Hepatic/Heme system: negative Gastrointestinal + GERD Asymptomatic. Renal / + Renal failure/insuffiency Renal/ system: negative Musculoskeletal/Pain + Osteoarthritis Endocrine / Other + Diabetes mellitus - Diabetes type 2. Outpatient insulin use: none. + Metabolic disorder + Obesity (BMI >30) + Rheumatological disease Growth / Development + Development / behavior Functional Capacity Functional capacity: 6-10 METs Day of Surgery assessments + Possibility of assessed - ruled out by patient's provided history. PAT Summary and Plans Anesthesia plan discussed: monitored anesthesia care. Patient Active Problem List Diagnosis Date Noted Encounter for screening colonoscopy 05/16/2025 S/P gastric sleeve procedure 05/10/2025 Gastroesophageal reflux disease 05/10/2025 Cystocele with rectocele 05/10/2025 Hyperlipidemia associated with type 2 diabetes mellitus (HCC) 05/10/2025 H/O: hysterectomy 05/10/2025 Type 2 diabetes mellitus with hyperlipidemia (HCC) 05/10/2025 History of kidney stones 05/10/2025 History of bilateral carpal tunnel release 05/10/2025 S/P right knee arthroscopy 05/10/2025 Lumbar radiculopathy 12/19/2023 Primary osteoarthritis of both knees 06/12/2021 Mild intermittent asthma without complication 06/12/2021 Morbid obesity with BMI of 40.0-44.9, adult (HCC) 02/19/2021 Vitamin D deficiency 12/11/2015 Past Medical History: Diagnosis Date Diabetes mellitus Gestational-2010, diabetes 2020-controlled with ozempic/diet Hyperlipidemia Hypertension Kidney stone Morbid obesity (HCC) Past Surgical History: Procedure Laterality Date BARIATRIC SURGERY May 2022 CARPAL TUNNEL RELEASE Left 09/21/2022 LT. CTR SECTION x1 COLONOSCOPY 05/27/2025 2nd screening GASTRIC RESTRICTION SURGERY HAND SURGERY Right carpal tunnel HYSTERECTOMY KNEE ARTHROSCOPY W/ LATERAL RELEASE Right Knee 2022 LITHOTRIPSY OB History No obstetric history on file. Allergies Allergen Reactions Adhesive Redness Redness and itching with Dermabond Nsaids (Non-Steroidal Anti-Inflammatory Drug) Other (See comments) Gastric sleeve surgery Taking? Last Dose Start Date End Date Provider calcium-vitamin D3-vitamin K 500-100-40 mg-unit-mcg tablet,chewable 05/20/2025 -- -- ProviderElisa MD multivitamin with iron tablet 05/20/2025 -- -- ProviderElisa MD omega-3 fatty acids 500 mg capsule 05/20/2025 -- -- Elisa Tang MD ondansetron (ZOFRAN) 4 mg tablet 05/26/2025 05/16/25 -- Eladio Hunt MD Take 1 tablet (4 mg) total 30 minutes before starting colonoscopy prep. Use the 2nd tablet as needed for nausea and vomiting. rosuvastatin (CRESTOR) 5 mg tablet 05/26/2025 05/10/25 -- Yissel Santacruz NP Take 1 tablet (5 mg total) by mouth daily tirzepatide (Mounjaro) 10 mg/0.5 mL pen injector injection 05/25/2025 05/10/25 -- Yissel Santacruz NP Inject 0.5 mL (10 mg total) under the skin every 7 days Current Facility-Administered Medications: Lactated Ringer's (LR) infusion, 30 mL/hr, intravenous, Continuous lidocaine (XYLOCAINE) 10 mg/mL (1 %) injection 2-10 mg, 0.2-1 mL, other, Once PRN Social History Tobacco Use Smoking Status Never Passive exposure: Never Smokeless Tobacco Never Alcohol Use: Not At Risk (05/27/2025) AUDIT-C Frequency of Alcohol Consumption: Never Average Number of Drinks: Patient does not drink Frequency of Binge Drinking: Never Substance and Sexual Activity Drug Use Never Family History Problem Relation Age of Onset No Known Problems Mother Hypertension Father 50 - 59 Arthritis Father 60 - 69 Colon cancer Maternal Grandmother Cancer Maternal Grandmother 50 - 59 Depression Daughter 10 - 19 Asthma Son 0 - 9 Anesthesia problems Neg Hx Vitals: 05/27/25 0743 BP: 134/90 Pulse: 64 Resp: 16 Temp: 36.4 ??C (97.6 ??F) SpO2: 100% PT: No results found for requested labs within last 30 days. INR: No results found for requested labs within last 30 days. APTT: No results found for requested labs within last 30 days. Hgb A1C: No results found for requested labs within last 30 days. CBC RBC: No results found for requested labs within last 30 days. RDW: No results found for requested labs within last 30 days. MCHC: No results found for requested labs within last 30 days. MCH: No results found for requested labs within last 30 days. MCV: No results found for requested labs within last 30 days. Hct: No results found for requested labs within last 30 days. Hgb: No results found for requested labs within last 30 days. WBC: No results found for requested labs within last 30 days. MPV: No results found for requested labs within last 30 days. Platelets: No results found for requested labs within last 30 days. RDW CV: No results found for requested labs within last 30 days. RDW Sd: No results found for requested labs within last 30 days. BMP Glucose: 05/27/2025: 81 mg/dL Calcium: No results found for requested labs within last 30 days. Sodium: No results found for requested labs within last 30 days. Potassium: No results found for requested labs within last 30 days. CO2: No results found for requested labs within last 30 days. Chloride: No results found for requested labs within last 30 days. BUN: No results found for requested labs within last 30 days. Creatinine: No results found for requested labs within last 30 days. STOP-Bang Total Score: 1 DOS Physical Exam Date of Last Liquid: 05/27/25, Time of Last Liquid: 0500 Date of Last Solid: 05/25/25, Time of Last Solid: 1900 Medical history, medications, and allergies reviewed. Attestation: This PAT evaluation 05/27/2025. Airway Exam: Mallampati: II Cervical ROM: FROM TM distance: >4 Cardiovascular Exam: Rate: regular Rhythm: regular Pulmonary Exam: LCTA, bilat EENT Exam: trachea midline Dental Exam: Otherwise appears intact and appears intact Skin Exam: Skin is warm. Capillary refill is < 3 seconds. Turgor is normal. Abdominal Exam: Abdomen is soft. Bowel sounds are present. Current state: Patient's current state is cooperative. Anesthesia Plan ASA 3 My patient is approved for the Anesthesia Controlled Medication protocol when under care of a BUTTON INSPECTOR Planned anesthesia: MAC Induction: Induction: intravenous. Postoperative Plan: No plan for postoperative opioid use. No postoperative mechanical ventilation intended. Patient's planned disposition post procedure is Outpatient. Informed Consent: Anesthesia plan and risks discussed with patient. Consent and Attending signature: I and/or my designee have discussed the anesthesia plan, benefits, possible alternatives, parental presence at time of induction (if indicated), and clinically relevant risks that may include dental injury, unintentional awareness, and/or other complications. The patient and/or parent/legal guardian understand, and agree to proceed. All questions answered. Plan and Consent Comments: Backup plan is a general anesthetic with or without an endotracheal tube or LMA as required documented in this encounter Plan of Treatment Not on file documented as of this encounter Visit Diagnoses Not on filedocumented in this encounter Administered Medications Inactive Administered Medications - up to 3 most recent administrations Medication Order MAR Action Action Date Dose Rate Site Lactated Ringer's (LR) infusion 30 mL/hr, intravenous, Continuous, Starting on Tue05/27/25 at 0830, Pre-Op New Bag 05/27/2025 8:25 AM CDT lidocaine (cardiac) (XYLOCAINE) preservative free injection intravenous, As needed, Starting on Tue05/27/25 at 0828, Anesthesia Intra-op, Indications: Ventricular ArrhythmiasIndications:Ventricular Arrhythmias Given 05/27/2025 8:28 AM CDT 50 mg propofoL (DIPRIVAN) 10 mg/mL IV intravenous, As needed, Starting on Tue05/27/25 at 0828, Anesthesia Intra-op Given 05/27/2025 8:39 AM CDT 30 mg Given 05/27/2025 8:37 AM CDT 30 mg Given 05/27/2025 8:35 AM CDT 30 mg documented in this encounter Care Teams First Officer Relationship Specialty Start Date End Date Yissel Santacruz NP [address] [facility] [address] [place], [place] [id number] PCP - General Internal Medicine 05/10/25 documented as of this encounter
--- OUTSIDE RECORDS SUMMARY | 2025-05-27 08:25 | XMS_ITS | Encounter Summary ---
Author Organization [facility] Address [address] [place] [address] Care Team Providers Care Prompt Care Rn Name Role Phone Yissel Santacruz LAURIE Primary Care Provider [phone] Reason for Visit * Auth/Cert (Routine) Specialty Diagnoses / Procedures Referred By Dewey easley Referred To Contact Diagnoses Encounter for screening colonoscopy Encounter for screening colonoscopy [Z12.11] Procedures MT COLONOSCOPY FLX DX W/COLLJ SPEC WHEN PFRMD COLONOSCOPY Referral ID Status Reason Start Date Expiration Date Visits Re quested Visits Authorized [id number] 1 1 Encounter Details Date Type Department Care Team (Late st Contact Info) Description 05/27/2025 8:25 AM CDT Anesthesia Event [address] [address] Eladio Hunt MD [address] [place] [address] [address] [place] [address] Josue Ayala CRNA [address] [place] [address] Anesthesia Record Procedure Summary Procedure Name Responsible [...] on file 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 Anesthesia Evaluation Ilaina Ochoa is a 50 y.o. female COLONOSCOPY [...] Medication protocol when under care of a ELECTRICAL INSTALLATION SUPERVISOR Planned anesthesia: MAC Induction: Induction: intravenous. Postoperative [...] mg documented in this encounter Care Teams Prompt Care Rn Relationship Specialty Start Date End Date Yissel Santacruz NP [address] [facility] [address] [place], [place] [id number] PCP - General Internal Medicine 05/10/25 documented as of this encounter
--- OUTSIDE RECORDS SUMMARY | 2025-05-27 08:30 | XMS_ITS | Encounter Summary ---
Author Organization [facility] Healthcare Address [address] [place] [address] Care Team Providers Care Vending Route Driver Name Role Phone Yissel Santacruz LAURIE Primary Care Provider [phone] Reason for Visit * Auth/Cert (Routine) Specialty Diagnoses / Procedures Referred By Dewey easley Referred To Contact Diagnoses Encounter for screening colonoscopy Encounter for screening colonoscopy [Z12.11] Procedures RI COLONOSCOPY FLX DX W/COLLJ SPEC WHEN PFRMD COLONOSCOPY Referral ID Status Reason Start Date Expiration Date Visits Re quested Visits Authorized [id number] 1 1 Encounter Details Date Type Department Care Team (Late st Contact Info) Description 05/27/2025 8:30 AM CDT - 05/27/2025 9:00 [place] [address] Eladio Hunt MD [address] [place] [address] COLON BIOPSY Surgery Details Date/Time Status Location OR Service Patient Class Case Class Case Type Trauma Case? 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 Never 05/27/2025 7:56 AM CDT Mikayla Saucedo, TERI Q2: How many drinks containing alcohol do you have on a typical day when you are drinking? Patient does not drink 05/27/2025 7:56 AM CDT Mikayla Saucedo RN Q3: How often do you have six or more drinks on one occasion? Never 05/27/2025 7:56 AM Mikayla Costello, TERI documented as of this encounter Medications at [...] - 05/27/2025 8:23 AM CDTAssociated Order(s): COLONOSCOPY [facility] Patient Name: Iliana Ochoa Procedure Date: 05/27/2025 8:23 AM Date of : 1975 Admit Type: Outpatient Age: 50 Gender: Female Attending MD: Eladio Hunt M.D., Room: [facility] PROCEDURE 1 Note Status: Finalized Procedure: Colonoscopy [...] scope was passed under direct vision. The [id number]-[id number] COLONOSCOPE was introduced through the anus and [...] or smoking 12 hours before surgery - [place] teeth in the morning but don't swallow [...] the procedure: none - Covid: none Location ([facility] [place], [address] [place] [address], [place] [address]), arrival time (07), procedure time (829), NPO status (nothing to eat or drink after midnight the night before the procedure) also reviewed. Patient expressing understanding of all pre-op instructions. documented in this encounter Plan of Treatment Not on file documented as of this encounter Procedures Procedure Name Priority Date/Time Associated Diagnosis Comments POCT GLUCOSE DEVICE Routine 05/27/2025 9 :10 AM CDT SURGICAL PATHOLOGY Routine 05/27/2025 8 :46 AM CDT Encounter for screening colonoscopy COLON [...] POCT ORDERABLES - DEVICE Final Result [facility] [address] Department [place] [address] * Surgical pathology (05/27/2025 8:46 AM CDT) Tissue (Colon, Biopsy) 05/27/2025 8:46 AM CDT Narrative PATHOLOGY TEMP LLB FOR ASP - 05/28/2025 4:30 PM CDT [facility] Department of Pathology [address] [place] [id number] Note to Patients: This report may contain [...] : 1975 (Age: 50) Gender: F Address: [address] [place] [address] Hospital #: [id number] Service: Gastro Location: Patient Type: [facility] OUTPATIENT Taken: 05/27/2025 Received: 05/27/2025 Accessioned: 05/27/2025 Reported: 05/28/2025 Physician(s): Eladio Hunt M.D. Yissel Santacruz NP Diagnosis: A. Large bowel, descending colon [...] is entirely submitted. Labeled A1. Jar 0. cox monett/05/27/2025 14:37 EBONY Brower, PA (ASCP) Microscopic slide review and interpretation for this case was performed at [facility], Department of Surgical Pathology, [address] [facility] [place], [place] [id number], [place] [id number] CLIA # [id number] us Eladio Hunt MD LAB PATHOLOGY ORDERABLES Fin al Result PATHOLOGY TEMP B FOR ASP * Colonoscopy (05/27/2025 8:23 AM CDT) Anatomical Region Laterality Modality Other Narrative Procedure Note Eladio Hunt MD - 05/27/2025 8:23 AM CDT [facility] Patient Name: Iliana Ochoa Procedure Date: 05/27/2025 8:23 AM Date of : 1975 Admit Type: Outpatient Age: 50 Gender: Female Attending MD: Eladio Hunt M.D., Room: [facility] PROCEDURE 1 Note Status: Finalized Procedure: Colonoscopy [...] The scope was passed under direct vision.The [id number] COLONOSCOPE was introduced through theanus and advanced [...] LAB POCT ORDERABLES - DEVICE Final Result [facility] [address] [facility] Department [place] [address] documented in this encounter Visit Diagnoses Diagnosis Encounter for screening colonoscopy- Primary Encounter for screening colonoscopy documented in this encounter Admitting Diagnoses Diagnosis [...] Call MD for each episode of hypoglycemia. PEDIATRICS HOSPITALIST STATES GLUTOSE-15 CONTAINS GLUCOSE 40% W/W (50% [...] Call MD for each episode of hypoglycemia. PEDIATRICS HOSPITALIST STATES GLUTOSE-15 CONTAINS GLUCOSE 40% W/W (50% W/V), Indications: hypoglycemic disorder glucagon injection 1 mg 1 mg, intramuscular, Every 30 min PRN, low blood sugar, blood glucose less than 70 mg/dL AND no IV access AND unable to take PO glucose/juice., Starting on Tue05/27/25 at 0907, Phase I, After Glucagon is administered, position [...] Call MD for each episode of hypoglycemia. PEDIATRICS HOSPITALIST STATES GLUTOSE-15 CONTAINS GLUCOSE 40% W/W (50% [...] (D10W) 10% bolus 250 mL 1 05/27/20 dextrose (GLUTOSE) 40 % gel 15 g 1 05/27/20 glucagon injection 1 mg 1 05/27/2025 insulin lispro (HumaLOG, ADM ELOG) 100 unit/mL injection 0-5 Units 1 05/27/2025 Lactated Ringer's (LR) infusion 2 lidocaine (XYLOCAINE) 10 mg/ mL (1 %) injection 2-10 mg 1 05/27/2025 naloxone (NARCAN) 0.4 mg/mL injection 0.04-0.4 mg 1 05/27/2025 documented in this encounter Care Teams Vending Route Driver Relationship Specialty Start Date End Date Yissel Santacruz NP [address] [facility] [address] [place] [address] PCP - General Internal Medicine 05/10/25 documented as of this encounter
--- OUTSIDE RECORDS SUMMARY | 2025-05-27 08:30 | XMS_ITS | Encounter Summary ---
Author Organization [facility] Healthcare Address [address] [place] [address] Care Team Providers Care Braille Typist Name Role Phone Yissel Santacruz LAURIE Primary Care Provider [phone] Reason for Visit * Auth/Cert (Routine) Specialty Diagnoses / Procedures Referred By Dewey easley Referred To Contact Diagnoses Encounter for screening colonoscopy Encounter for screening colonoscopy [Z12.11] Procedures [place] COLONOSCOPY FLX DX W/COLLJ SPEC WHEN PFRMD COLONOSCOPY Referral ID Status Reason Start Date Expiration Date Visits Re quested Visits Authorized [id number] 1 1 Encounter Details Date Type Department Care Team (Late st Contact Info) Description 05/27/2025 8:30 AM CDT - 05/27/2025 9:00 [place] [address] Eladio Hunt MD [address] [place] [address] COLON BIOPSY Surgery Details Date/Time Status Location [...] on file 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 The [id number]-[id number] COLONOSCOPE was introduced through the anus and [...] or smoking 12 hours before surgery - [place] teeth in the morning but don't swallow [...] the procedure: none - Covid: none Location ([facility] [place], [address] [place] [address], [place] [address]), arrival time (07), procedure time (829), NPO [...] POCT ORDERABLES - DEVICE Final Result [facility] [address] Department [place] [address] * Surgical pathology (05/27/2025 8:46 AM CDT) Tissue (Colon, Biopsy) 05/27/2025 8:46 AM CDT Narrative PATHOLOGY TEMP LLB FOR ASP - 05/28/2025 4:30 PM CDT [facility] Department of Pathology [address] [place] [id number] Note to Patients: This report may contain [...] : 1975 (Age: 50) Gender: F Address: [address] [place] [address] Hospital #: [id number] Service: Gastro Location: Patient Type: [facility] OUTPATIENT Taken: 05/27/2025 Received: 05/27/2025 Accessioned: 05/27/2025 [...] is entirely submitted. Labeled A1. Jar 0. [facility]/05/27/2025 14:37 EBONY Brower, PA (ASCP) Microscopic slide review and interpretation for this case was performed at [facility], Department of Surgical Pathology, [address] [facility] [place], [place] [id number], [place] [id number] CLIA # [id number] us Eladio Hunt MD LAB PATHOLOGY ORDERABLES Fin al Result PATHOLOGY TEMP B FOR ASP * Colonoscopy (05/27/2025 8:23 AM CDT) Anatomical Region Laterality Modality Other Narrative Procedure Note Eladio Hunt MD - 05/27/2025 8:23 AM CDT [facility] Patient Name: Iliana Ochoa Procedure Date: 05/27/2025 8:23 AM Date of : 1975 Admit Type: Outpatient Age: 50 Gender: Female Attending MD: Eladio Hunt M.D., Room: [facility] PROCEDURE 1 Note Status: Finalized Procedure: [...] The scope was passed under direct vision.The PCF-[id number] COLONOSCOPE was introduced through theanus and advanced [...] LAB POCT ORDERABLES - DEVICE Final Result [facility] [address] [facility] [place] [address] documented in this encounter Visit [...] Call MD for each episode of hypoglycemia. SUPERVISOR PILE DRIVING STATES GLUTOSE-15 CONTAINS GLUCOSE 40% W/W (50% [...] Call MD for each episode of hypoglycemia. SUPERVISOR PILE DRIVING STATES GLUTOSE-15 CONTAINS GLUCOSE 40% W/W (50% [...] Call MD for each episode of hypoglycemia. SUPERVISOR PILE DRIVING STATES GLUTOSE-15 CONTAINS GLUCOSE 40% W/W (50% [...] 05/27/2025 documented in this encounter Care Teams Braille Typist Relationship Specialty Start Date End Date Yissel Santacruz NP [address] [facility] [address] [place] [address] PCP - General Internal Medicine 05/10/25 documented as of this encounter
[2025-05-28] VITALS (23 sets, daily range): BP systolic 109–139; BP diastolic 59–91; PULSE 71–104; RESP 14–24; TEMP 36.7; O2SAT 98–100
--- NOTE | ~2025-05-28 | CT_ITS ---
EXAMINATION: CT abdomen pelvis w con DATE: 05/28/2025 20:21 INDICATION: Abdominal pain TECHNIQUE: Computed tomography (CT) of the abdomen and pelvis was performed with 100 mL Omnipaque-350 intravenous contrast. Automated exposure control and iterative reconstruction technique were employed. The dose-length product was 1204.13 mGy-cm. COMPARISON: 07/29/2021 FINDINGS: Lung bases are clear. Heart size is normal. No pericardial or pleural effusion. Small sliding-type hiatal hernia with change of prior sleeve gastrectomy with suture line along the greater curvature of the stomach. Bladder is normal. The uterus is not identified and has likely been surgically resected. . 2.3 similar low-attenuation right adnexal cyst which is surrounded by higher attenuation hemoperitoneum in the pelvis with additional slightly lower attenuation free fluid scattered throughout the abdomen.. There are a couple regions of high attenuation likely sentinel clot located along the ascending colon which may be related to trauma associated with reported recent colonoscopy. Correlate for bi opsy in the proximal colon. There is however no extraluminal gas to suggest perforation or evident active contrast extravasation. No abscess. No pathologically enlarged abdominal or pelvic lymphadenopathy. Mild lumbar and lower thoracic spondylosis. IMPRESSION: 1. Small to moderate amount of hemoperitoneum in the abdomen and pelvis with suggestion of subtle clot in the region of the ascending colon suggesting iatrogenic injury post reported recent colonoscopy. No free intraperitoneal gas or active extravasation. Dr. Bradshaw discussed these findings with Dr. Wynne at 8:35 PM. 2. Small sliding-type hiatal hernia with change of prior sleeve gastrectomy. Reviewed, dictated and finalized at location A. IMPRESSION: 1. Small to moderate amount of hemoperitoneum in the abdomen and pelvis with almeida ggestion of subtle clot in the region of the ascending colon suggesting iatroge nicole injury post reported recent colonoscopy. No free intraperitoneal gas or act brennan extravasation. Dr. Bradshaw discussed these findings with Dr. Wynne at 8 :35 PM. 2. Small sliding-type hiatal hernia with change of prior sleeve gastrectomy.
--- OUTSIDE RECORDS SUMMARY | 2025-05-28 18:31 | XMS_ITS | Clinical Summary ---
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 Gender Identity Not on file Sexual Orientation Not on file Plan of Treatment Health Maintenance Due Date Last Done Comments Hepatitis C Virus (HCV) Screening 1975 Hepatitis B Immunization (1 of 3 - 19+ 3-dose series) 1994 Pap Smear 1996 Cervical Cancer Screening (CCS) 2005 HPV/Cotest 2005 Cologuard 2020 Colonoscopy 2020 Colorectal Cancer Screening 2020 Immunochemical Fecal Occult Blood 2020 Influenza Immunization (#1) 2025 SARS-COV-2 Immunization (3 - 2024- season) 2025 12/15/2020, 11/21/2020 Pneumococcal Immunization (5 0+ years) (1 of 1 - PCV) 2025 Zoster Immunization (1 of 2) 2025 Respiratory Syncytial Virus (RSV) Immunization (Adult) (1 - 1-dose 75+ series) 2050 DTaP/Tdap/Td Immunization Discontinued 02/09/2018 TdaP Immunization Completed 02/09/2018 Human Papillomavirus (HPV) Immunization Aged Out No longer eligible based on patient's age to complete this topic Meningococcal Immunization (ACWY) Aged Out No longer eligible based on patient's age to complete this topic Rotavirus Immunization Aged Out No lo nger eligible based on patient's age to complete this topic
--- OUTSIDE RECORDS SUMMARY | 2025-05-28 18:31 | XMS_ITS | Encounter Summary ---
Author Organization [facility] Facility Care Team Providers Care Spray Rig Operator Name Role Phone Kalee Jackson FACING CUTTING MACHINE OPERATOR Primary Care Provider [phone] Yissel Santacruz FACING CUTTING MACHINE OPERATOR Primary Care Provider [phone] Encounter Details Date Type Department Care Team (Latest Contact Info) Description 10/08/2016 Orders Only [facility] CLINCON[facility] ProviderElisa MD [address] [place] [address] Social History Tobacco Use Types Packs/Day Years Used Date Smoking Tobacco: Never Assessed Comments Unknown Sex and Gender Information Value Date Recorded Sex Assigned at Not on file Legal Sex Female 3:43 AM MAID CLEANING COOKING Gender Identity Female 01/04/2022 6:05 AM CDT Sexual Orientation Straight 01/04/2022 6: 05 AM CDT documented as of this encounter Plan of Treatment Not on file documented as of this encounter Procedures Procedure Name Priority Date/Time Associated Diagnosis Comments SCAN - LABS 10/08/2016 12:00 AM MAID CLEANING COOKING documented in this encounter Results * SCAN - LABS (10/08/2016 12:00 AM MAID CLEANING COOKING) Narrative 10/08/2016 12:00 AM MAID CLEANING COOKING Ordered by an unspecified provider. us Historical Provider Final Res ult documented in this encounter Visit Diagnoses Not on filedocumented in this encounter Care Teams Spray Rig Operator Relationship Specialty Start Date End Date Kalee Jackson FACING CUTTING MACHINE OPERATOR PCP - General Internal Medicine 02/17/21 05/09/25 Yissel Santacruz NP [address] [address] PCP - General Internal Medicine 05/10/25 documented as of this encounter
--- OUTSIDE RECORDS SUMMARY | 2025-05-28 18:31 | XMS_ITS | Clinical Summary ---
Author Organization [facility] Address [address] [place] [address] Care Team Providers Care Tower Hand Name Role Phone JacksonBartgayle Yfn MORRISON-WELDING MACHINE OPERATOR HELPER ARC Primary Care Provider Source Comments [facility],non-owned Affiliates and Associated Physician Practices is amultiple site organization consisting of ambulatory clinics and hospital sitesin [place], [place], [place] and [place]. This disclosure is being madepursuant to the Care Everywhere program and may not contain all information available regarding this patient. Last updated 18.[facility]ango Allergies Active Allergy Reactions Criticality Noted Date Comments Adhesive Sensitivity Other Low 06/23/2021 Redness and itching with Dermabond Nsaids Other Low 09/21/2022 Gastric sleeve surgery Medications * Be aware that medications may not be up to date on this document. Alwaysverify current medications with the patient. 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/2019 Family History Medical History Relation Name Comments Negative Family History Father Negative Family History Mother Relation Name Status Comments Father Mother Social History Tobacco Use Types Packs/Day Years Used Date Smoking Tobacco: Never Smokeless Tobacco: Never Tobacco Cessation:Counseling Given: No Alcohol Use Standard Drinks/Week Comments No 0 (1 standard drink = 0.6 oz pur e alcohol) PHQ-2 Answer Date Recorded Patient Health Questionnaire-2 Score 0 04/26/2024 Comments No Sex and Gender Information Value Date Recorded Sex Assigned at Not on file Legal Sex Female 11:59 AM MASKING MACHINE FEEDER Gender Identity Not on file Sexual Orientation Not on file Last Filed Vital Signs Vital Sign Reading Time Taken Comments Blood Pressure 124/74 06/25/2020 3:55 PM MASKING MACHINE FEEDER Pulse 76 06/25/2020 3:55 PM MASKING MACHINE FEEDER Temperature 36.7 C (98 F) 06/25/2020 3:55 PM MASKING MACHINE FEEDER Respiratory Rate 18 06/25/2020 3:55 PM MASKING MACHINE FEEDER Oxygen Saturation 97% 06/25/2020 3:55 PM MASKING MACHINE FEEDER Inhaled Oxygen Concentration - - Weight 93 kg (205 lb) 04/26/2024 9:27 AM CDT Height 157.5 cm (5' 2) 04/26/2024 9:27 AM CDT Body Mass Index 37.49 04/26/2024 9:27 AM CDT Plan of Treatment Health Maintenance Due Date Last Done Comments COLOGUARD (AGES 45-75) - COL ON CA SCREENING 1975 COLON MONITORING 1975 COLONOSCOPY - COLON CA SCREENING 1975 CT COLONOGRAPHY - COLON CA SCREENING 1975 Colorectal Cancer Screening 1975 FIT - COLON CA SCREENING 1975 FLEX SIG - COLON CA SCREENING 1975 LIPID TESTING 1975 MAMMOGRAM 1975 HIV SCREENING 1990 HEPATITIS C SCREENING 04/20/1993 DTAP/TDAP/TD VACCINES (1 - Tdap) 1994 HEPATITIS B VACCINE (1 of 3 - 19+ 3-dose series) 1994 SCREENING FOR DIABETES 02/02/2024 DEPRESSION SCREENING 08/22/2024 02/02/2024 COVID-19 VACCINE (3 - 2024-2 6 season) 2025 12/15/2020, 11/21/2020 INFLUENZA VACCINE (#1) 2025 PNEUMOCOCCAL VACCINE 50+ (1 of 1 - PCV) 2025 ZOSTER VACCINE (1 of 2) 2025 HIB VACCINE Aged Out No longer eligi ble based on patient's age to complete this topic HPV VACCINE Aged Out No longer eligi ble based on patient's age to complete this topic MENINGOCOCCAL (Group B) VACCINE SHARED DECISION-MAKING Aged Out No longer eligible based on patient's age to complete this topic MENINGOCOCCAL GROUPS A/C/Y/W VACCINE Aged Out No longer eligible b ased on patient's age to complete this topic Insurance Care Teams Tower Hand Relationship Specialty Start Date End Date Kalee Jackson, BUSINESS AGENT-WELDING MACHINE OPERATOR HELPER ARC [address] [place] [id number] PCP - General Nurse Practitioner Family 10/31/19
--- OUTSIDE RECORDS SUMMARY | 2025-05-28 18:31 | XMS_ITS | Clinical Summary ---
Author Organization [facility] Medical [facility] 1 Address [address] [place] [address] Care Team Providers Care Music Video Director Name Role Phone Traelorin Yissel LAURIE Primary Care Provider [phone] Allergies Active Allergy Reactions Criticality Noted Date Comments Adhesive Redness Low 06/23/2021 Redness and itching with Dermabond Nsaids (Non-Steroidal Anti-Inflammatory Drug) Other (See comments) Low 09/21/2022 Gastric sleeve surgery Medications omega-3 fatty acids 500 mg capsule Take by mouth Active calcium-vitamin D3-vitamin K 500-100-40 mg-unit-mcg tablet,chewable Take by mouth Active multivitamin with iron tablet Take 1 tablet by mouth daily Active rosuvastatin (CRESTOR) 5 mg tabletIndications: Hyperlipidemia associated with type 2 diabetes mellitus (HCC) Take 1 tablet (5 mg total) by mouth daily 90 tablet 3 05/10/20 25 Active tirzepatide (Mounjaro) 10 mg/0.5 mL pen injector injectionIndicatio ns:type 2 diabetes mellitus Inject 0.5 mL (10 mg total) under the skin every 7 days 2 mL 3 05/10/20 25 Active ondansetron (ZOFRAN) 4 mg tabletIndications: Nausea and vomiting, unspecified vomiting type Take 1 tablet (4 mg) total 30 minutes before starting colonoscopy prep. Use the 2nd tablet as needed for nausea and vomiting. 2 tablet 05/16/20 25 Active semaglutide (OZEMPIC) 2 mg/dose (8 mg/3 mL) pen injector injection Inject 2 mg under the skin every 7 days 025 Discontinu ed(Reorder ) semaglutide (OZEMPIC) 2 mg/dose (8 mg/3 mL) pen injector injectionIndicatio ns:Type 2 diabetes mellitus with hyperlipidemia (HCC) Inject 2 mg under the skin every 7 days 9 mL 3 05/10/20 25 025 Discontinu ed(Patient Reported) polyethylene glycol (GoLYTELY) 236-22.74-6.74 -5.86 gram solutionIndication s:Encounter for screening colonoscopy Take 4,000 mL by mouth once for 1 dose 4000 mL 05/16/20 025 Active Problems Problem Noted Date Diagnosed Date Encounter for screening colonoscopy 05/16/2025 S/P gastric sleeve procedure 05/10/2025 Gastroesophageal reflux disease 05/10/2025 Overview (05/10/2025): Phreesia 06/26/2024 Cystocele with rectocele 05/10/2025 Assessment & Plan (05/20/2025 8:06 AM CDT): Hyperlipidemia associated with type 2 diabetes m ellitus 05/10/2025 Assessment & Plan (05/20/2025 8:06 AM CDT): Orders: Lipid panel; Future rosuvastatin (CRESTOR) 5 mg tablet; Take 1 tablet (5 mg total) by mouth daily H/O: hysterectomy 05/10/2025 Type 2 diabetes mellitus with hyperlipidemia Assessment & Plan (05/20/2025 8:06 AM CDT): Orders: Albumin Creatinine Ratio, Urine; Future tirzepatide (Mounjaro) 10 mg/0.5 mL pen injector injection; Inject 0.5 mL (10 mg total) under the skin every 7 days History of kidney stones 05/10/2025 Assessment & Plan (05/20/2025 8:06 AM CDT): History of bilateral carpal tunnel release 09/19 /2025 S/P right knee arthroscopy 05/10/2025 Lumbar radiculopathy 12/19/2023 Assessment & Plan (05/20/2025 8:06 AM CDT): Orders: Ambulatory referral to Pain Management; Future Primary osteoarthritis of both knees 06/12/2021 Assessment & Plan (05/20/2025 8:06 AM CDT): Mild intermittent asthma without complication Morbid obesity with BMI of 40.0-44.9, adult 07/0 08/2020 Assessment & Plan (05/20/2025 8:06 AM CDT): Discussed the patient's BMI. The BMI is above average. BMI management plan is completed. BMI Follow-up includes: nutrition counseling, exercise counseling and education provided. Encouraged regular physical activity--moderate activity for a total of 150 minutes per week over 3-5 days. Encouraged healthy diet with regular fresh fruits and vegetables limited in processed carbohydrates. Vitamin D deficiency 12/11/2015 Assessment & Plan (05/20/2025 8:06 AM CDT): Continue vitamin d supplementation Resolved Problems Problem Noted Date Diagnosed Date Resolved Date Urethral hypermobility 05/10/202505/10 Stress incontinence in female 05/10/2025 05/10/2025 Overview (05/10/2025): Urodynamics 07/13/24: Stress Urinary Incontinence Rectocele 05/10/2025 05/10/2025 Patella-femoral syndrome 05/10/2025 Midline cystocele 05/10/2025 05/10/2025 Calculus of ureter 05/10/2025 Calculus of kidney 05/10/2025 Asthma 05/10/2025 05/10/2025 Acute thoracic back pain 05/10/2025 Abnormal radiographic examination 12/12/2023 05/10/2025 Other abnormal and inconclus brennan findings on diagnostic imaging of breast 08/28/2023 05/10/2025 Hyperlipidemia 02/09/2023 05/10/2025 Arthralgia of right knee 02/09/2023 Elevated blood-pressure read ing without diagnosis of hypertension 01/26/2023 05/10/2025 Left carpal tunnel syndrome 09/06/2022 05/10/2025 Left hand pain 09/06/2022 05/10/2025 Diastolic dysfunction 06/12/20212024 Pre-diabetes 05/05/2021 05/10/2025 No diagnosis on Brewster I 03/30/202105/05 Hyperglycemia 03/04/2020 05/10/2025 Disorder of shoulder 10/31/2019 025 Hypertension associated with diabetes 12/10/2015 05/20/2025 Encounters Date Type Department Care Team Description 05/27/2025 8:30 AM CDT - 05/27/2025 9:00 AM CDT Surgery [address] [address] Eladio Hunt MD COLON BIOPSY 05/27/2025 8:25 AM CDT Anesthesia Event [address] [address] [facility] 05/27/2025 7:30 AM CDT - 05/27/2025 9:40 AM CDT Hospital Encounter [address] [address] Eladio Hunt MD Encounter for screening colonoscopy Discharge Disposition: Discharge to home or self care 05/21/2025 Telephone [facility] Primary Care at [address] [phone] Yissel Santacruz NP 05/16/2025 Orders Only [facility] Gastroenterology at [address] [place] [phone] Eladio Hunt MD Encounter for screening colonoscopy (Primary Dx); Nausea and vomiting, unspecified vomiting type 05/16/2025 Results Follow-Up [facility] Primary Care at [address] [phone] Yissel Santacruz NP Lipid panel, Albumin Creatinine Ratio, Urine 05/13/2025 3:45 PM CDT Lab [address] [address] Hyperlipidemia associated with type 2 diabetes mellitus (HCC); Type 2 diabetes mellitus with hyperlipidemia (HCC) 05/10/2025 3:30 PM CDT Office Visit [facility] Medical [facility] Primary Care at [address] [phone] Yissel Santacruz NP Morbid obesity with BMI of 40.0-44.9, adult (HCC) (Primary Dx); Type 2 diabetes mellitus with hyperlipidemia (HCC); Vitamin D deficiency; Cystocele with rectocele; Hyperlipidemia associated with type 2 diabetes mellitus (HCC); Primary osteoarthritis of both knees; Lumbar radiculopathy; Screen for colon cancer; History of kidney stones; Iron overload; Wellness examination; Gastroesophageal reflux disease without esophagitis; Mild intermittent asthma without complication 02/27/2025 Results Follow-Up [facility] Invasive Surgery [address] [place] [address] Medical Office Building [address] [place] [phone] Dena Aponte NP Ferritin, Folate, Hemoglobin A1c, Additional followed-up results: 9 02/26/2025 10:30 AM CDT Lab [facility] Outpatient Lab at [address] [phone] 02/26/2025 10:23 AM CDT - 02/26/2025 11:59 PM CDT Hospital Encounter [address] [address] H/O gastric sleeve; Intestinal malabsorption, unspecified type; BMI 35.0-35.9,adult Discharge Disposition: Discharge to home or self care 02/25/2025 2:00 PM CDT Telemedicine [facility] Minimally Invasive Surgery [address] [place] [address] Medical Office Building [address] [place] [phone] Dena Aponte NP H/O gastric sleeve (Primary Dx); Obesity, Class II, BMI 35-39.9; Intestinal malabsorption, unspecified type; BMI 35.0-35.9,adult from Last 3 Months Immunizations Immunization Administration Dates Next Due Pfizer SARS-CoV-2 Monovalent Vaccination (12+ Yrs) PURPLE 12/15/2020,11/21/2020 Tdap 02/09/2018,08/22/2009 Surgical History Surgery Date Site/Laterality Comments SECTION x1 HYSTERECTOMY LITHOTRIPSY HAND SURGERY Right carpal tunnel COLONOSCOPY 05/27/2025 2nd screening GASTRIC RESTRICTION SURGERY CARPAL TUNNEL RELEASE 09/21/2022 [address] CTR BARIATRIC SURGERY May 2022 KNEE ARTHROSCOPY W/ LATERAL RELEASE Knee 2022 Right Medical History Medical History Date Comments Morbid obesity (HCC) Kidney stone Hypertension Diabetes mellitus Gestational-2010, di abetes 2020-controlled with ozempic/diet Hyperlipidemia Bradycardia Family History Medical History Relation Name Comments Depression Daughter Arthritis Father Hypertension Father Cancer Maternal Grandmother Colon cancer Maternal Grandmother No Known Problems Mother Asthma Son Anesthesia problems Neg Hx Relation Name Status Comments Daughter Alive Father Alive Maternal Grandmother Mother Alive Son Alive Social History Tobacco Use Types Packs/Day Years [...] on file 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 Gender Identity Female 01/04/2022 6:05 AM CDT Sexual Orientation Straight 01/04/2022 6: 05 AM CDT Obstetrics History Last Filed Vital Signs Vital Sign Reading [...] Mass Index 39.68 05/27/2025 7:43 AM CDT Plan of Treatment Health Maintenance Due Date Last Done Comments Dilated Eye Exam 1975 Hemoglobin A1C 08/29/2025 02/26/2025, 12/21, 03/18/2023, Additional history exists Breast Cancer Screening-Mammogram 09/29/2025 09/29/2024 Influenza Vaccine (#1) 2026 Postp oned from 04/22/2025 (Patient declined, but will receive in the future) eGFR 02/26/2026 02/26/2025, 12/21, 03/18/2023, Additional history exists Pneumococcal vaccine <65 (1 of 2 - PCV) 2026 Postponed from 1994 (Patient declined, but will receive in the future) Covid-19 Vaccine ( - season) 2026 12/15/2020, 11/21/2020 Postponed from 04/22/2025 (Patient declined, but will receive in the future) Depression Screening 05/10/2026 05/10/2025 Foot Exam 05/10/2026 05/10/2025 Regular Well Visit/Exam 18-64 05/10/2026 05/10/2025 Zoster Vaccine (1 of 2) 05/10/2026 Post poned from 2025 (Patient declined, but will receive in the future) Albumin Creatinine Ratio, Urine 05/13/2026 05/13/2025 Lipid Panel 05/13/2026 05/13/2025, 07/0 03/2025, 01/10/2024, Additional history exists DTaP/Tdap/Td Vaccine (3 - Td or Tdap) 02/10/2028 02/09/2018, 08/22/2009 Colon Cancer Screening-Colonoscopy 05/27/2035 05/27/2025, 03/12/2014 Hepatitis B Screening Discontinued Hepatitis C Screening Discontinued Procedures Procedure Name Priority Date/Time Associated Diagnosis Comments POCT GLUCOSE DEVICE Routine 05/27/2025 9 :10 AM CDT SURGICAL PATHOLOGY Routine 05/27/2025 8: 46 AM CDT Encounter for screening colonoscopy COLON BIOPSY 05/27/2025 8:25 AM CDT Encounter for screening colonoscopy COLONOSCOPY 05/27/2025 8:23 AM CDT POCT GLUCOSE DEVICE Routine 05/27/2025 7 :52 AM CDT ALBUMIN CREATININE RATIO, URINE Routine 05/13/2025 3:47 PM CDT Type 2 diabetes mellitus with hyperlipidemia (HCC) LIPID PANEL Routine 05/13/2025 3:47 PM CDT Hyperlipidemia associated with type 2 diabetes mellitus (HCC) EGFR Routine 02/26/2025 7:26 PM CDT H/O gastric sleeve Intestinal malabsorption, unspecified type BMI 35.0-35.9,adult DIFFERENTIAL AUTO Routine 02/26/2025 7:2 6 PM CDT H/O gastric sleeve Intestinal malabsorption, unspecified type BMI 35.0-35.9,adult COMPREHENSIVE METABOLIC PANEL Routine 02/26/2025 7:26 PM CDT H/O gastric sleeve Intestinal malabsorption, unspecified type BMI 35.0-35.9,adult CBC WITH AUTO DIFFERENTIAL Routine 02/26/2025 7:26 PM CDT H/O gastric sleeve Intestinal malabsorption, unspecified type BMI 35.0-35.9,adult VITAMIN D 25 HYDROXY Routine 02/26/2025 7:26 PM CDT H/O gastric sleeve Intestinal malabsorption, unspecified type BMI 35.0-35.9,adult VITAMIN B12 Routine 02/26/2025 7:26 PM CDT H/O gastric sleeve Intestinal malabsorption, unspecified type BMI 35.0-35.9,adult VITAMIN B1 Routine 02/26/2025 7:26 PM CDT H/O gastric sleeve Intestinal malabsorption, unspecified type BMI 35.0-35.9,adult PTH Routine 02/26/2025 7:26 PM CDT H/O gastric sleeve Intestinal malabsorption, unspecified type BMI 35.0-35.9,adult LIPID PANEL Routine 02/26/2025 7:26 PM CDT H/O gastric sleeve Intestinal malabsorption, unspecified type BMI 35.0-35.9,adult IRON PROFILE W/ IBC Routine 02/26/2025 7 :26 PM CDT H/O gastric sleeve Intestinal malabsorption, unspecified type BMI 35.0-35.9,adult HEMOGLOBIN A1C Routine 02/26/2025 7:26 PM CDT H/O gastric sleeve Intestinal malabsorption, unspecified type BMI 35.0-35.9,adult FOLATE Routine 02/26/2025 7:26 PM CDT H/O gastric sleeve Intestinal malabsorption, unspecified type BMI 35.0-35.9,adult FERRITIN Routine 02/26/2025 7:26 PM CDT H/O gastric sleeve Intestinal malabsorption, unspecified type BMI 35.0-35.9,adult COPPER, SERUM Routine 02/26/2025 7:26 PM CDT H/O gastric sleeve Intestinal malabsorption, unspecified type BMI 35.0-35.9,adult HM MAMMOGRAPHY Routine 09/29/2024 from Last 3 Months or Most Recently Relevant to Health Maintenance Results * POCT glucose (05/27/2025 9:10 AM CDT) Glucose, POC 83 70 - 199 mg/dL Blood 05/27/2025 9:10 AM CDT 05/27/2025 9:10 AM CDT us Eladio Hunt MD LAB POCT ORDERABLES - DEVICE Final Result [facility] [address] [place] [address] * Surgical pathology (05/27/2025 8:46 AM CDT) Tissue (Colon, Biopsy) 05/27/2025 8:46 AM CDT Narrative PATHOLOGY [facility] FOR [facility] - 05/28/2025 4:30 PM CDT [facility] Department of Pathology [address] [place] [id number] Note to Patients: This report may contain [...] the details. Final Report Patient Name: ILIANA TORRES : 1975 (Age: 50) Gender: F Address: [address] [place] [address] [facility] #: [id number] Service: Gastro Location: Patient Type: [facility] OUTPATIENT Taken: 05/27/2025 Received: 05/27/2025 Accessioned: 05/27/2025 [...] is entirely submitted. Labeled A1. Jar 0. [facility]/05/27/2025 14:37 EBONY Brower, PA ([facility]) Microscopic slide review and interpretation for this case was performed at [facility], Department of Surgical Pathology, [address] [facility], [place] [id number], [place] [address] CLIA # [id number] us Eladio Hunt MD LAB PATHOLOGY ORDERABLES Fin al Result [facility]OLOGY [facility] * Colonoscopy (05/27/2025 8:23 AM CDT) Anatomical Region Laterality Modality Other Narrative Procedure Note Eladio Hunt MD - 05/27/2025 8:23 AM CDT [facility] Patient Name: Iliana Torres Procedure Date: 05/27/2025 8:23 AM Date of : 1975 Admit Type: Outpatient Age: 50 Gender: Female Attending MD: Eladio Hunt M.D., Room: [facility] PROCEDURE 1 Note Status: Finalized Procedure: Colonoscopy [...] The scope was passed under direct vision.The [id number] COLONOSCOPE was introduced through theanus and advanced [...] LAB POCT ORDERABLES - DEVICE Final Result Performing Organization Address [facility] de Phone Number [address] [place], [place] [id number] * Albumin Creatinine Ratio, Urine (05/13/2025 3:47 PM CDT) Albumin Ur <12.0 mg/L Comment: Interpretive Data No reference range established. Current interpretive data was last revised 2019. Creatinine Ur 234.0 mg/dL [facility] Comment: Interpretive Data No reference range established. Current interpretive data was last revised 2019. Albumin Creatinine Ratio, Ur <5 1 - 29 mg/g [facility] Urine 05/13/2025 3:47 PM CDT 05/13/2025 6:36 PM CDT Yissel Santacruz NP LAB URINE ORDERABLES Final Re sult Performing Organization Address [facility] Co de Phone Number [address] [place], [place] [phone] * (ABNORMAL) Lipid panel (05/13/2025 3:47 PM CDT) Cholesterol 215(H) 30 - 199 mg/dL Comment: Interpretive Data Ages < or = 19 years Acceptable: <170 mg/dL Borderline high: 170-199 mg/dL High: >or= 200 mg/dL Ages > or = 20 years Desirable: <200 mg/dL Borderline high: 200-239 mg/dL High: >or= 240 mg/dL Literature References: 1. Expert Panel on Integrated Guidelines for Cardiovascular Health and Risk Reduction in Children and Adolescents. Pediatrics 2011;128:S213 2. NCEP Expert Panel. Circulation 2004;110:227 Current Interpretive Data was last revised on 2018. Triglycerides 144 <=149 mg/dL [facility] Comment: Interpretive Data Ages < or = 9 years Acceptable: <75 mg/dL Borderline high: 75-99 mg/dL High: >or= 100 mg/dL Ages 10 to 20 years Acceptable: <90 mg/dL Borderline high: 90-129 mg/dL High: >or= 130 mg/dL Ages > or = 20 years Desirable: <150 mg/dL Borderline high: 150-199 mg/dL High: 200-499 mg/dL Very high: >or= 499 mg/dL Literature References: 1. Expert Panel on Integrated Guidelines for Cardiovascular Health and Risk Reduction in Children and Adolescents. Pediatrics 2011;128:S213 2. NCEP Expert Panel. Circulation 2004;110:227 Current Interpretive Data was last revised on 2018. HDL 64 >=40 mg/dL [facility] Comment: Interpretive Data Ages < or = 19 years Acceptable: >45 mg/dL Borderline low: 40-45 mg/dL Low: <40 mg/dL Ages > or = 20 years Desirable: >or= 60 mg/dL Low: <40 mg/dL Literature References: 1. Expert Panel on Integrated Guidelines for Cardiovascular Health and Risk Reduction in Children and Adolescents. Pediatrics 2011;128:S213 2. NCEP Expert Panel. Circulation 2004;110:227 Current Interpretive Data was last revised on 2018. LDL, calculated 126 <=129 mg/dL [facility] Comment: Interpretive Data Ages < or = 19 years Acceptable: <110 mg/dL Borderline high: 110-129 mg/dL High: >or= 130 mg/dL Ages > or = 20 years Optimal: <100 mg/dL Near optimal: 100-129 mg/dL Borderline high: 130-159 mg/dL High: >160 mg/dL Calculated using the Plummer LDL-C estimating equation. This equation was implemented on 2024. Prior to this date LDL-C was estimated using the Friedewald equation. Literature References: 1. Expert Panel on Integrated Guidelines for Cardiovascular Health and Risk Reduction in Children and Adolescents. Pediatrics 2011;128:S213 2. NCEP Expert Panel. Circulation 2004;110:227 3. Elian Mcintosh al. VERO Cardiol. 2019December 20;5(5):540-548. doi: 10.1001/jamacardio.2020.0013 Current Interpretive Data was last revised on 2024. Non-HDL Cholesterol 151 mg/dL [facility] Comment: Interpretive Data Ages < or = 19 years Acceptable: <120 mg/dL Borderline high: 120-144 mg/dL High: >145 mg/dL Ages > or = 20 years When triglycerides are >200 mg/dL, Non-HDL cholesterol is a secondary target of therapy with treatment goals that are 30 mg/dL greater than the LDL cholesterol target. Literature References: 1. Expert Panel on Integrated Guidelines for Cardiovascular Health and Risk Reduction in Children and Adolescents. Pediatrics 2011;128:S213 2. NCEP Expert Panel. Circulation 2004;110:227 Current Interpretive Data was last revised on 2018. Chol/HDL ratio 3 [facility] Blood 05/13/2025 3:47 PM CDT 05/13/2025 6:36 PM CDT Yissel Santacruz NP LAB BLOOD ORDERABLES Final Re sult [facility] [address] [facility] Department of Laboratories [place], [place] [phone] * eGFR (02/26/2025 7:26 PM CDT) eGFR >90 >=60 mL/min/1. 73 m2 Comment: Interpretive Data Reference Interval Normal >/= 90 mL/min/1.73m2 Mildly decreased* 60 - 89 mL/min/1.73m2 Mildly to moderately decreased 45 - 59 mL/min/1.73m2 Moderately to severely decreased 30 - 44 mL/min/1.73m2 Severely decreased 15 - 29 mL/min/1.73m2 Kidney Failure < 15 mL/min/1.73m2 *Relative to young adult level Estimated glomerular filtration rate is determined by the 2020 CKD-EPI equation recommended by the National Kidney Foundation (A Unifying Approach to GFR Estimation: Recommendations of the NKF-ASK Task Force on Reassessing the Inclusion of Race in Diagnosing Kidney Disease, JASN 2020). The CKD-EPI equation should not be used for patients with unstable renal function and has not been validated in children and those over 70. Current interpretive data was last reviewed 2021. Blood 02/26/2025 7:26 PM CDT 02/26/2025 7:46 PM CDT us Dena Aponte NP LAB BLOOD ORDERABLES Final Result [facility] [address] [address] Department [place] [address] * (ABNORMAL) Differential, auto (02/26/2025 7:26 PM CDT) Neutrophil abs 3.10 1.50 - 6.50 K/cumm Imm gran abs 0.02 0.00 - 0.10 K/cumm [facility] Lymphocyte abs 3.46(H) 0.80 - 3.30 K/cumm [facility] Monocyte abs 0.48 0.20 - 0.80 K/cumm [facility] Eosinophil abs 0.36 0.00 - 0.50 K/cumm [facility] Basophil abs 0.07 0.00 - 0.10 K/cumm [facility] Neutrophil pct 41.4 % [facility] Comment: Interpretive Data Percent cell count reference ranges are not reported, since discordance with absolute values may lead to misinterpretation of CBC data. Current Interpretive Data was last revised on 2017. Imm gran pct 0.3 % [facility] Comment: Interpretive Data Percent cell count reference ranges are not reported, since discordance with absolute values may lead to misinterpretation of CBC data. Current Interpretive Data was last revised on 2017. Lymphocyte pct 46.2 % [facility] Comment: Interpretive Data Percent cell count reference ranges are not reported, since discordance with absolute values may lead to misinterpretation of CBC data. Current Interpretive Data was last revised on 2017. Monocyte pct 6.4 % [facility] Comment: Interpretive Data Percent cell count reference ranges are not reported, since discordance with absolute values may lead to misinterpretation of CBC data. Current Interpretive Data was last revised on 2017. Eosinophil pct 4.8 % [facility] Comment: Interpretive Data Percent cell count reference ranges are not reported, since discordance with absolute values may lead to misinterpretation of CBC data. Current Interpretive Data was last revised on 2017. Basophil pct 0.9 % [facility] Comment: Interpretive Data Percent cell count reference ranges are not reported, since discordance with absolute values may lead to misinterpretation of CBC data. Current Interpretive Data was last revised on 2017. Blood 02/26/2025 7:26 PM CDT 02/26/2025 7:43 PM CDT Dena Aponte [employer]HOU[employer]EM[employer] LAB BLOOD ORDERABLES Final Result [facility] [address] [address] [place] [address] * Iron profile w/ IBC (02/26/2025 7:26 PM CDT) Pathologist [facility] Iron 99 35 - 145 mcg/dl TIBC 274 250 - 400 mcg/dL [facility] Transferrin saturation 36 20 - 50 % [facility] Blood 02/26/2025 7:26 PM CDT 02/26/2025 7:43 PM CDT Dena Aponte [employer]EM[employer] LAB BLOOD ORDERABLES Final Result [facility] [address] [address] [place] [address] * (ABNORMAL) CBC with auto differential (02/26/2025 7:26 PM CDT) Pathologist [facility] WBC 7.49 3.80 - 9.90 K/cumm Hgb 13.7 11.9 - 15.5 g/dL [facility] Hct 43.6 35.6 - 45.5 % [facility] Plt 232 150 - 400 K/cumm [facility] MPV 12.3 9.1 - 12.3 fL [facility] RBC 4.91 3.90 - 5.20 M/cumm [facility] MCV 88.8 81.3 - 96.4 fL [facility] MCH 27.9 27.1 - 33.3 pg [facility] MCHC 31.4(L) 32.3 - 35.7 g/dL [facility] RDW CV 13.3 11.1 - 14.9 % [facility] RDW SD 43.6 35.7 - 48.1 fL [facility] NRBC abs 0.00 0.00 - 0.01 K/cumm [facility] Blood 02/26/2025 7:26 PM CDT 02/26/2025 7:43 PM CDT Dena Aponte NP LAB BLOOD ORDERABLES Final Result [facility] [id number] [address] Department [place] [address] * Copper, serum (02/26/2025 7:26 PM CDT) Copper 107 77 - 206 mcg/dL [facility] Comment: ADDITIONAL INFORMATION This test was developed and its performance characteristics determined by [facility] in a manner consistent with CLIA requirements. This test has not been cleared or approved by the U.S. Food and Drug Administration. Test Performed by: [facility] - [address] Justice: Regulo Ca Ph.D.; CLIA# [id number] Blood 02/26/2025 7:26 PM CDT 03/01/2025 10:06 AM CDT Dena Brittny Cusumano [employer] LAB BLOOD ORDERABLES Final Result Performing Organization Address City/[facility]/ZIP Co de Phone Number ZORAN JERRY [address] [address] [place] [address] [facility] * Vitamin D 25 hydroxy (02/26/2025 7:26 PM CDT) [facility] Vitamin D 25-OH 34 30 - 80 ng/mL Blood 02/26/2025 7:26 PM CDT 02/26/2025 7:43 PM CDT Dena Valdeznarinder Zhangzacherynelson WAREHOUSE FOREMAN LAB BLOOD ORDERABLES Final Result Performing Organization Address [facility] Co de Phone Number ZORAN JERRY [address] [address] [place] [address] * Vitamin B1 (02/26/2025 7:26 PM CDT) [facility] Thiamine (Vit B1) 112 70 - 180 nmol/L [facility] Comment: ADDITIONAL INFORMATION This test was developed and its performance characteristics determined by [facility] in a manner consistent with CLIA requirements. This test has not been cleared or approved by the U.S. Food and Drug Administration. Test Performed by: [facility] [place] [address] Justice: Regulo Ca Ph.D.; CLIA# [id number] Blood 02/26/2025 7:26 PM CDT 02/26/2025 7:43 PM CDT Denasarah Aponte WAREHOUSE FOREMAN LAB BLOOD ORDERABLES Final Result Performing Organization Address City/[facility] Co de Phone Number ZORAN JERRY [address] [address] [place] [address] [facility] * PTH (02/26/2025 7:26 PM CDT) [facility] PTH 45 15 - 65 pg/mL Blood 02/26/2025 7:26 PM CDT 02/26/2025 7:43 PM CDT Dena Aponte WAREHOUSE FOREMAN LAB BLOOD ORDERABLES Final Result Performing Organization Address [facility] Co de Phone Number ZORAN [address] [address] [facility] [place] [address] * (ABNORMAL) Hemoglobin A1c (02/26/2025 7:26 PM CDT) Hgb A1C 5.7(H) 4.0 - 5.6 % Estimated Average Glucose 117 mg/dL ZORAN JERRY Comment: The ADA recommends reporting an estimated Average Glucose (eAG) with all Hemoglobin A1c results using the equation derived from a study of 507 normal and diabetic adults. Minority populations were underrepresented and children were not included. (Diabetes Care 31:7247-9694, 2008). The eAG is not equivalent to a fasting glucose. Blood 02/26/2025 7:26 PM CDT 02/26/2025 7:43 PM CDT Dena Aponte NP LAB BLOOD ORDERABLES Final Result Performing Organization Address [facility] de Phone Number ALICIASANTA [address] [address] [facility] [place] [address] * Folate (02/26/2025 7:26 PM CDT) Pathologist [facility] Folic acid 9.3 >=5.0 ng/mL Comment:Hemolysis present. R esults may be affected. Blood 02/26/2025 7:26 PM CDT 02/26/2025 7:43 PM CDT Dena Aponte NP LAB BLOOD ORDERABLES Final Result Performing Organization Address [facility] Co de Phone Number [facility] [address] [address] [facility] [place] [address] * (ABNORMAL) Ferritin (02/26/2025 7:26 PM CDT) Ferritin 199(H) 13 - 150 ng/mL Blood 02/26/2025 7:26 PM CDT 02/26/2025 7:43 PM CDT us Dena Mart Fadi WAREHOUSE FOREMAN LAB BLOOD ORDERABLES Final Result Performing Organization Address [facility] Co de Phone Number ALICIAS[place]A [address] [address] [place] [address] * Vitamin B12 (02/26/2025 7:26 PM CDT) Vitamin B12 367 230 - 1,250 pg/mL Blood 02/26/2025 7:26 PM CDT 02/26/2025 7:43 PM CDT Dena Brittny Apotne WAREHOUSE FOREMAN LAB BLOOD ORDERABLES Final Result Performing Organization Address [facility] de Phone Number ZORAN [address] [address] [place] [address] * (ABNORMAL) Lipid panel (02/26/2025 7:26 PM CDT) Cholesterol 221(H) 30 - 199 mg/dL Comment: Interpretive Data Ages < or = 19 years Acceptable: <170 mg/dL Borderline high: 170-199 mg/dL High: >or= 200 mg/dL Ages > or = 20 years Desirable: <200 mg/dL Borderline high: 200-239 mg/dL High: >or= 240 mg/dL Literature References: 1. Expert Panel on Integrated Guidelines for Cardiovascular Health and Risk Reduction in Children and Adolescents. Pediatrics 2011;128:S213 2. NCEP Expert Panel. Circulation 2004;110:227 Current Interpretive Data was last revised on 2018. Triglycerides 145 <=149 mg/dL ZORAN JERRY Comment: Interpretive Data Ages < or = 9 years Acceptable: <75 mg/dL Borderline high: 75-99 mg/dL High: >or= 100 mg/dL Ages 10 to 20 years Acceptable: <90 mg/dL Borderline high: 90-129 mg/dL High: >or= 130 mg/dL Ages > or = 20 years Desirable: <150 mg/dL Borderline high: 150-199 mg/dL High: 200-499 mg/dL Very high: >or= 499 mg/dL Literature References: 1. Expert Panel on Integrated Guidelines for Cardiovascular Health and Risk Reduction in Children and Adolescents. Pediatrics 2011;128:S213 2. NCEP Expert Panel. Circulation 2004;110:227 Current Interpretive Data was last revised on 2018. HDL 52 >=40 mg/dL ZORAN JERRY Comment: Interpretive Data Ages < or = 19 years Acceptable: >45 mg/dL Borderline low: 40-45 mg/dL Low: <40 mg/dL Ages > or = 20 years Desirable: >or= 60 mg/dL Low: <40 mg/dL Literature References: 1. Expert Panel on Integrated Guidelines for Cardiovascular Health and Risk Reduction in Children and Adolescents. Pediatrics 2011;128:S213 2. NCEP Expert Panel. Circulation 2004;110:227 Current Interpretive Data was last revised on 2018. LDL, calculated 143(H) <=129 mg/dL ZORAN JERRY Comment: Interpretive Data Ages < or = 19 years Acceptable: <110 mg/dL Borderline high: 110-129 mg/dL High: >or= 130 mg/dL Ages > or = 20 years Optimal: <100 mg/dL Near optimal: 100-129 mg/dL Borderline high: 130-159 mg/dL High: >160 mg/dL Calculated using the Elian LDL-C estimating equation. This equation was implemented on 2024. Prior to this date LDL-C was estimated using the Friedewald equation. Literature References: 1. Expert Panel on Integrated Guidelines for Cardiovascular Health and Risk Reduction in Children and Adolescents. Pediatrics 2011;128:S213 2. NCEP Expert Panel. Circulation 2004;110:227 3. Elian Coulter et al. VERO Cardiol. 2020 December 20;5(5):540-548. doi: 10.1001/jamacardio.2020.0013 Current Interpretive Data was last revised on 2024. Non-HDL Cholesterol 169 mg/dL ZORAN Comment: Interpretive Data Ages < or = 19 years Acceptable: <120 mg/dL Borderline high: 120-144 mg/dL High: >145 mg/dL Ages > or = 20 years When triglycerides are >200 mg/dL, Non-HDL cholesterol is a secondary target of therapy with treatment goals that are 30 mg/dL greater than the LDL cholesterol target. Literature References: 1. Expert Panel on Integrated Guidelines for Cardiovascular Health and Risk Reduction in Children and Adolescents. Pediatrics 2011;128:S213 2. NCEP Expert Panel. Circulation 2004;110:227 Current Interpretive Data was last revised on 2018. Chol/HDL ratio 4 [facility] Blood 02/26/2025 7:26 PM CDT 02/26/2025 7:43 PM CDT us Dena Aponte NP LAB BLOOD ORDERABLES Final Result CERNER [address] [address] Department [place] [address] * Comprehensive metabolic panel (02/26/2025 7:26 PM CDT) Sodium 142 135 - 145 mmol/L Potassium, pl 4.2 3.3 - 4.9 mmol/L [facility] Chloride 105 97 - 110 mmol/L [facility] CO2 27 22 - 32 mmol/L [facility] Anion gap 10 2 - 15 mmol/L [facility] BUN 12 6 - 25 mg/dL [facility] Creatinine 0.79 0.60 - 1.10 mg/dL [facility] Glucose 90 70 - 199 mg/dL [facility] Comment: Interpretive Data Fasting glucose >/= 126 mg/dl is diagnostic for diabetes. Fasting is defined as no caloric intake for at least 8 hours. Fasting glucose between 100 mg/dl to 125 mg/dl is diagnostic of prediabetes. In a patient with classic symptoms of hyperglycemia or hyperglycemic crisis, a random glucose >/= 200 mg/dl is diagnostic for diabetes. In the absence of unequivocal hyperglycemia, results should be confirmed by repeat testing. The classification and Diagnosis of Diabetes Diabetes Care 2021; 46: S19-S40. Current interpretive data was last revised 2022. Calcium 9.5 8.5 - 10.3 mg/dL [facility] Bilirubin, total 0.5 0.1 - 1.2 mg/dL [facility] Protein, pl 7.1 6.5 - 8.5 g/dL [facility] Albumin 4.0 3.5 - 5.0 g/dL [facility] Alk phos 92 40 - 130 Units/L [facility] ALT 11 7 - 45 Units/L [facility] AST 24 10 - 45 Units/L [facility] Blood 02/26/2025 7:26 PM CDT 02/26/2025 7:43 PM CDT us Dena Aponte WAREHOUSE FOREMAN LAB BLOOD ORDERABLES Final Result ZORAN [address] Department [place] [address] * MAMMOGRAPHY (09/29/2024) [facility] Signature Mammography Normal us Historical Provider HEALTH MAINTENANCE Final Result from Last 3 Months or Most Recently Relevant to Health Maintenance Insurance [place] [employer] [place] [employer] Advance Directives For more information, please contact: [phone] * Full Code (Latest Code Status on File) Date Activated Date Inactivated Comments 06/12/2021 4:30 PM 06/14/2021 2:22 PM Care Teams Music Video Director Relationship Specialty Start Date End Date Yissel Sanatcruz NP [address] [facility] [address] [place] [address] PCP - General Internal Medicine 05/10/25
--- OUTSIDE RECORDS SUMMARY | 2025-05-28 18:31 | XMS_ITS | Encounter Summary ---
Author Organization [facility] Healthcare Address [address] [place] [address] Care Team Providers Care Timing Adjuster Name Role Phone Yissel Santacruz NP Primary Care Provider [phone] Encounter Details Date Type Department Care Team (Late st Contact Info) Description 05/16/2025 Results Follow-Up [facility] Medical Group Primary Care at [address] [address] Yissel Santacruz NP [address] [place] [address] [address] [place] [address] Lipid panel, Albumin Creatinine Ratio, Urine Social History Tobacco Use Types Packs/Day Years [...] you have a drink containing alcohol? Never 05/20/2025 Q2: How many drinks containi ng alcohol do you have on a typical day when you are drinking? Patient does not drink Q3: How often do you have si x or more drinks on one occasion? 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
--- OUTSIDE RECORDS SUMMARY | 2025-05-28 18:31 | XMS_ITS | Encounter Summary ---
Author Organization [facility] Facility Care Team Providers Care Campus Manager Name Role Phone Kalee Jackson GENERAL CLAIMS AGENT Primary Care Provider [phone] Yissel Santacruz GENERAL CLAIMS AGENT Primary Care Provider [phone] Encounter Details Date Type Department Care Team (Latest Contact Info) Description 09/29/2016 Orders Only [facility] CLINCON[facility] ProviderElisa MD [address] [place] [id number] Social History Tobacco Use Types Packs/Day Years Used Date Smoking Tobacco: Never Assessed Comments Unknown Sex and Gender Information Value Date Recorded Sex Assigned at Not on file Legal Sex Female 3:43 AM 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 Historical Provider Final Res ult * SCAN - LABS (09/29/2016 12:00 AM WIPING RAG WASHER) Narrative 09/29/2016 12:00 AM WIPING RAG WASHER Ordered by an unspecified provider. us Historical Provider Final Res ult documented in this encounter Visit Diagnoses Not on filedocumented in this encounter Care Teams Campus Manager Relationship Specialty Start Date End Date Kalee Jackson NP PCP - General Internal Medicine 02/17/21 05/09/25 Yissel Santacruz NP [address] [facility] [address] [place] [address] PCP - General Internal Medicine 05/10/25 documented as of this encounter
--- OUTSIDE RECORDS SUMMARY | 2025-05-28 18:31 | XMS_ITS | Encounter Summary ---
Author Organization [facility] Address [address] [place] [address] Phone Care Team Providers Care Director Teen Post Name Role Phone Kalee Jackson NP Primary Care Provider [phone] Yissel Santacruz NP Primary Care Provider [phone] Encounter Details Date Type Department Care Team (Late st Contact Info) Description 02/17/2021 Telephone [facility] [address] [place] [address] Medical Office Building [address] [place] [address] Arielle Jensen RMA Social History Tobacco Use Types Packs/Day Years Used Date Smoking Tobacco: Never Assessed AUDIT-C Answer Date Recorded Q1: How often do you have a drink containing alc ohol? 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
--- OUTSIDE RECORDS SUMMARY | 2025-05-28 18:31 | XMS_ITS | Clinical Summary ---
Author Organization [facility] Address [facility] [place] [address] Care Team Providers Care Precision Layout Worker Name Role Phone Leticia Granda Primary Care Provider [phone] Allergies No known active allergies Medications oxyCODONE-aceta minophen (PERCOCET) 5-325 MG tabletIndicatio ns:Acute Pain < 7 Day Supply Take 1-2 tablets by mouth every 6 (six) hours as needed for Pain. Indications: Acute Pain < 7 Day Supply 20 tablet 07/31/2021 Active Social History Tobacco Use Types Packs/Day Years Used Date Smoking Tobacco: Never Smokeless Tobacco: Never Alcohol Use Standard Drinks/Week Comments No 0 (1 standard drink = 0.6 oz pur e alcohol) AUDIT-C Answer Date Recorded Frequency of Alcohol Consumption Never 02/06/2019 Average Number of Drinks Not on file 019 Frequency of Binge Drinking Not on file 01/20 Comments No Sex and Gender Information Value Date Recorded Sex Assigned at Not on file Legal Sex Female 4:30 PM CDT Gender Identity Not on file Sexual Orientation Not on file Last Filed Vital Signs Vital Sign Reading Time Taken Comments Blood Pressure 153/88 07/31/2021 12:55 AM CANNED FOOD RECONDITIONING INSPECTOR Pulse 60 07/31/2021 12:55 AM CANNED FOOD RECONDITIONING INSPECTOR Temperature 36.4 C (97.5 F) 07/30/2021 10:30 PM CANNED FOOD RECONDITIONING INSPECTOR Respiratory Rate 18 07/31/2021 12:5 5 AM CANNED FOOD RECONDITIONING INSPECTOR Oxygen Saturation 98% 07/31/2021 12: 55 AM CANNED FOOD RECONDITIONING INSPECTOR Inhaled Oxygen Concentration - - Weight 126.8 kg (279 lb 8.7 oz) 021 10:30 PM CANNED FOOD RECONDITIONING INSPECTOR Height 154.9 cm (5' 1) 07/30/2021 10:3 0 PM CANNED FOOD RECONDITIONING INSPECTOR Body Mass Index 52.82 07/30/2021 10:30 PM CANNED FOOD RECONDITIONING INSPECTOR Plan of Treatment Health Maintenance Due Date Last Done Comments Colorectal Cancer Screening Colonoscopy (10 Years) 1975 Annual Physical 1978 Hepatitis C 1993 Hepatitis B Vaccines (1 of 3 - 19+ 3-dose series) 1994 Mammogram Screening 2015 COVID-19 Vaccine (3 - 2024-2 6 season) 2025 12/15/2020, 11/21/2020 Pneumococcal Vaccine: 50+ Years (1 of 1 - PCV) 2025 Zoster Vaccines (1 of 2) 2025 Influenza Adult (#1) 2025 DTaP, Tdap and Td Vaccines ( 3 - Td or Tdap) 02/10/2028 02/09/2018, 08/22/2009 Meningococcal B Vaccine Aged Out No l onger eligible based on patient's age to complete this topic Meningococcal Vaccine Aged Out No joyce kenya eligible based on patient's age to complete this topic RSV Immunizations Under 20 Months Aged Out No longer eligible b ased on patient's age to complete this topic Insurance [facility] Care Teams Precision Layout Worker Relationship Specialty Start Date End Date Leticia Granda PA [address] [place] [address] PCP - General 10/08/16
--- NOTE | 2025-05-28 19:21 | ED.GENADULT ---
HPI - General Adult General Chief complaint: Abdominal Pain <Huber Wynne MD - Last Filed: 05/29/25 17:47> Stated complaint: Abdominal pain, SOB, hypotension <Huber Wynne MD - Last Filed: 05/29/25 17:47> Time Seen by Provider: 05/28/25 18:46 <Huber Wynne MD - Last Filed: 05/29/25 17:47> History of Present Illness HPI narrative: 50-year-old female presents to the emergency department for evaluation for increased generalized weakness and lightheadedness. Patient had a colonoscopy done yesterday at [facility] and since then she has had persistent abdominal discomfort but has had persistent lightheaded dizziness. Patient does not take any blood thinners. <Huber Wynne MD - Last Filed: 05/29/25 17:47> Related Data Home medications: Home Medications ?Medication ?Instructions ?Recorded ?Confirmed ?Last Taken ?Type multivitamin 1 tablet PO DAILY 05/24/23 01/16/25 Unknown History omega-3 fatty acids 1,000 mg PO DAILY 05/24/23 01/16/25 Unknown History semaglutide 1 mg/dose (4 mg/3 mL) 1 mg subcut WEEKLY 08/31/23 01/16/25 Unknown History subcutaneous pen injector (Ozempic) <Huber Wynne MD - Last Filed: 05/29/25 17:47> Allergies/adverse reactions: Allergies Allergy/AdvReac Type Severity Reaction Status Date / Time NSAIDS (Non-Steroidal AdvReac Unknown Verified 01/16/25 07:20 Anti-Inflamma <Huber Wynne MD - Last Filed: 05/29/25 17:47> Review of Systems Review of Systems: All systems reviewed & are unremarkable except as noted in HPI and below <Huber Wynne MD - Last Filed: 05/29/25 17:47> [facility] Past Medical History Medical History: Medical History Hypertension BMI greater than 40 Patella-femoral syndrome Vision abnormalities Right knee pain <Huber Wynne MD - Last Filed: 05/29/25 17:47> Surgical History Surgical History: Surgical History History of arthroscopy of right knee Extensive synovectomy with medial compartment chondroplasty History of 2000 History of lithotripsy 2008 H/O: hysterectomy 2016 S/P gastric sleeve procedure History of carpal tunnel release Carpal tunnel syndrome: performed by Dr. Adelfo Klein in [facility] Right- 2014 Left <Huber Wynne MD - Last Filed: 05/29/25 17:47> Family History Family History: Family History Grandparent Cancer Father Hypertension Daughter Depression <Huber Wynne MD - Last Filed: 05/29/25 17:47> Social History Social History: Social History Smoking status: Never smoker Second hand tobacco smoke exposure: No Alcohol intake: never Substance use: never Substance use type: does not use Do You Feel Safe in your Home?: Yes Lack of Transportation: No Lack of Food: Never True Current Housing: I Have Housing Concerned About Future Housing: No Difficulty Paying Gas/Electric Bills: No Difficulty Paying for Meds: No Currently Unemployed: No Education: Master's Degree or Higher Difficulty w/ Childcare or Family Care: No Living arrangements: with family Occupation/Education: occupation 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 EYES: PERRLA/EOMI, conjunctivae clear. NOSE: Normal no drainage EARS:TMS clear with good light reflex. THROAT: Pharynx clear, no exudate. NECK: Supple. No adenopathy, no masses. RESPIRATORY: Airway patent, respirations nonlabored. Clear to auscultation bilaterally, no rales, rhonchi, wheezing. CARDIOVASCULAR: Regular rate and rhythm without murmurs rubs or gallops. ABDOMINAL: Soft, nontender, nondistended, normal bowel sounds MUSCULOSKELETAL: Moves all extremities. Strength/ROM intact, No edema, No calf tenderness. NEURO: Alert. Cranial nerves II through XII intact. Good gait. Good coordination SKIN: Warm, dry. Normal Color <Huber Wynne MD - Last Filed: 05/29/25 17:47> Course Consultations Consultation #1: Spoke with Dr. Cárdenas [facility] about patient and workup who accepts patient as transfer <Laurence Zavala PA-C - Last Filed: 05/28/25 22:30> Date: 05/28/25 <Laurence Zavala PA-C - Last Filed: 05/28/25 22:30> Vital Signs Vital signs: Vital Signs Temperature 98.0 F 05/28/25 18:41 Pulse Rate 81 05/28/25 18:41 Respiratory Rate 20 05/28/25 18:41 Blood Pressure 139/79 05/28/25 18:41 Pulse Oximetry 100 05/28/25 18:41 Temperature 98.0 F 05/28/25 18:41 Pulse Rate 84 05/28/25 22:45 Respiratory Rate 19 05/28/25 22:45 Blood Pressure 120/72 05/28/25 21:01 Pulse Oximetry 100 05/28/25 22:45 <Huber Wynne MD - Last Filed: 05/29/25 17:47> Vital Signs Temperature 98.0 F 05/28/25 18:41 Pulse Rate 81 05/28/25 18:41 Respiratory Rate 20 05/28/25 18:41 Blood Pressure 139/79 05/28/25 18:41 Pulse Oximetry 100 05/28/25 18:41 Temperature 98.0 F 05/28/25 18:41 Pulse Rate 84 05/28/25 22:45 Respiratory Rate 19 05/28/25 22:45 Blood Pressure 120/72 05/28/25 21:01 Pulse Oximetry 100 05/28/25 22:45 <Laurence Zavala PA-C - Last Filed: 05/28/25 22:30> Medical Decision Making MDM Narrative Medical decision making narrative: 50-year-old female presented emergency department for evaluation for diffuse abdominal pain. Patient is afebrile with no leukocytosis hemoglobin of 9.0 which is lower than a typical baseline of 12-14. Patient's INR is 1.0. No significant acute abnormalities on her CMP UA appears to be a contaminated sample, patient denies any urinary symptoms. CT scan does show moderate hemoperitoneum which is thought to be iatrogenic secondary to her recent colonoscopy. Patient did have a small polyp that was removed. Case was discussed with [facility] transfer line and they are attempting to get the patient transferred over to [place], patient was comfortable with the potential transfer to [place]. <Huber Wynne MD - Last Filed: 05/29/25 17:47> 50-year-old female presented to the emergency department for evaluation for diffuse abdominal pain. Patient is afebrile with no leukocytosis hemoglobin of 9.0 which is lower than a typical baseline of 12-14. Patient's INR is 1.0. No significant acute abnormalities on her CMP. UA appears to be a contaminated sample, patient denies any urinary symptoms. CT scan does show moderate hemoperitoneum which is thought to be iatrogenic secondary to her recent colonoscopy. Patient did have a small polyp that was removed. Case was discussed with [facility] transfer line and they are attempting to get the patient transferred over to [place], patient was comfortable with the potential transfer to [place]. It is thought that IR will be needed, they do not have IR at [place]. Patient has been accepted to be transferred to [facility] for further management <Laurence Zavala PA-C - Last Filed: 05/28/25 22:30> Differential Diagnosis Differential Diagnosis: Colitis, diverticulitis, bowel perforation, iatrogenic injury <Huber Wynne MD - Last Filed: 05/29/25 17:47> Vital Signs Vital Signs: Vital Signs Temperature 98.0 F 05/28/25 18:41 Pulse Rate 81 05/28/25 18:41 Respiratory Rate 20 05/28/25 18:41 Blood Pressure 139/79 05/28/25 18:41 Pulse Oximetry 100 05/28/25 18:41 Temperature 98.0 F 05/28/25 18:41 Pulse Rate 84 05/28/25 22:45 Respiratory Rate 19 05/28/25 22:45 Blood Pressure 120/72 05/28/25 21:01 Pulse Oximetry 100 05/28/25 22:45 <Huber Wynne MD - Last Filed: 05/29/25 17:47> Vital Signs Temperature 98.0 F 05/28/25 18:41 Pulse Rate 81 05/28/25 18:41 Respiratory Rate 20 05/28/25 18:41 Blood Pressure 139/79 05/28/25 18:41 Pulse Oximetry 100 05/28/25 18:41 Temperature 98.0 F 05/28/25 18:41 Pulse Rate 84 05/28/25 22:45 Respiratory Rate 19 05/28/25 22:45 Blood Pressure 120/72 05/28/25 21:01 Pulse Oximetry 100 05/28/25 22:45 <Laurence Zavala PA-C - Last Filed: 05/28/25 22:30> Lab Data Lab results reviewed: Yes I reviewed the patient's lab results. <Huber Wynne MD - Last Filed: 05/29/25 17:47> Result diagrams: 05/28/25 21:19 05/28/25 19:38 <Huber Wynne MD - Last Filed: 05/29/25 17:47> Labs: Lab Results 05/28/25 05/28/25 Range/Units 19:38 21:19 WBC 9.1 (4.5-10.0) K/mm3 RBC 3.14 L (4.2-5.4) M/mm3 Hgb 9.0 L D 8.9 L (12.0-15.0) g/dL Hct 28.2 L 27.1 L (37.0-47.0) % MCV 89.8 (80-100) fl MCH 28.7 (26-34) pg MCHC 31.9 L (32-36) g/dl RDW 13.4 (11.5-14.5) % Plt Count 213 (150-375) k/mm3 MPV 12.2 H (7.4-10.4) fl Immature Gran % (Auto) 0.3 (0-0.5) % Neut % (Auto) 50.2 (45.5-73.1) % Lymph % (Auto) 40.1 (18.3-44.2) % Howard % (Auto) 6.6 (2.6-8.5) % Eos % (Auto) 2.1 (0-4.4) % Baso % (Auto) 0.7 (0.2-1.2) % Lymph # (Auto) 3.63 H (0.9-3.2) K/mm3 Howard # (Auto) 0.6 (0.1-0.6) K/mm3 Eos # (Auto) 0.2 (0-0.3) K/mm3 Baso # (Auto) 0.1 (0.0-0.1) K/mm3 Abs Immat Gran (auto) 0.03 (0.00-0.031) K/mm3 Absolute Neuts (auto) 4.5 (1.3-6.7) K/mm3 Absolute Nucleated RBC 0.000 (0.0-0.012) K/mm3 Nucleated RBC % 0.0 (0.0-0.2) % PT 13.5 (11.1-14.7) Seconds INR 1.0 APTT 26.8 (22.3-36.8) Seconds Sodium 135 L (137-145) mmol/L Potassium 3.7 (3.4-5.0) mmol/L Chloride 102 (98-107) mmol/L Carbon Dioxide 29 (22-30) mmol/L Anion Gap 4 (4-12) mmol/L BUN 10 D (7-17) mg/dL Creatinine 0.82 (0.7-1.0) mg/dL Estim Creat Clear Calc 76 ml/min Estimated GFR > 60 (59 - ) Glucose 96 (65-110) mg/dL Lactic Acid 1.3 (0.7-2.0) mmol/L Calcium 8.5 (8.4-10.2) mg/dL Total Bilirubin 0.4 (0.2-1.3) mg/dL AST 28 (14-36) U/L ALT 16 (6-35) U/L Alkaline Phosphatase 74 (38-126) U/L Total Protein 6.5 (6.3-8.2) g/dL Albumin 3.7 (3.5-5.1) g/dL Urine Color Dark yellow (Yellow) Urine Appearance Turbid H (Clear) Urine pH 5.5 (5.0-9.0) Ur Specific [place] 1.034 (1.001-1.035) Urine Protein 1+ H (Negative) mg/dL Urine Glucose (UA) Negative (Negative) mg/dL Urine Ketones 1+ H (Negative) mg/dL Ur Blood (Man) Negative (Negative) Urine Nitrate Negative (Negative) Urine Bilirubin Negative (Negative) Urine Urobilinogen 1.0 (<2.0) mg/dL Add Ur Microanalysis Reviewed Leukocyte Esterase Rfl Negative (Negative) IVON/UL Urine RBC 11-20 H (0-2) /hpf Urine WBC 6-10 H (0-3) /hpf Ur Squamous Epith Cells Many H (Few) /hpf Calcium Oxalate Crystal Present (None) /hpf Urine Bacteria 4+ H /hpf Urine Casts 3-5 Blood Type B Positive Antibody Screen Negative <Huber Wynne MD - Last Filed: 05/29/25 17:47> Lab Results 05/28/25 05/28/25 Range/Units 19:38 21:19 WBC 9.1 (4.5-10.0) K/mm3 RBC 3.14 L (4.2-5.4) M/mm3 Hgb 9.0 L D 8.9 L (12.0-15.0) g/dL Hct 28.2 L 27.1 L (37.0-47.0) % MCV 89.8 (80-100) fl MCH 28.7 (26-34) pg MCHC 31.9 L (32-36) g/dl RDW 13.4 (11.5-14.5) % Plt Count 213 (150-375) k/mm3 MPV 12.2 H (7.4-10.4) fl Immature Gran % (Auto) 0.3 (0-0.5) % Neut % (Auto) 50.2 (45.5-73.1) % Lymph % (Auto) 40.1 (18.3-44.2) % Howard % (Auto) 6.6 (2.6-8.5) % Eos % (Auto) 2.1 (0-4.4) % Baso % (Auto) 0.7 (0.2-1.2) % Lymph # (Auto) 3.63 H (0.9-3.2) K/mm3 Howard # (Auto) 0.6 (0.1-0.6) K/mm3 Eos # (Auto) 0.2 (0-0.3) K/mm3 Baso # (Auto) 0.1 (0.0-0.1) K/mm3 Abs Immat Gran (auto) 0.03 (0.00-0.031) K/mm3 Absolute Neuts (auto) 4.5 (1.3-6.7) K/mm3 Absolute Nucleated RBC 0.000 (0.0-0.012) K/mm3 Nucleated RBC % 0.0 (0.0-0.2) % PT 13.5 (11.1-14.7) Seconds INR 1.0 APTT 26.8 (22.3-36.8) Seconds Sodium 135 L (137-145) mmol/L Potassium 3.7 (3.4-5.0) mmol/L Chloride 102 (98-107) mmol/L Carbon Dioxide 29 (22-30) mmol/L Anion Gap 4 (4-12) mmol/L BUN 10 D (7-17) mg/dL Creatinine 0.82 (0.7-1.0) mg/dL Estim Creat Clear Calc 76 ml/min Estimated GFR > 60 (59 - ) Glucose 96 (65-110) mg/dL Lactic Acid 1.3 (0.7-2.0) mmol/L Calcium 8.5 (8.4-10.2) mg/dL Total Bilirubin 0.4 (0.2-1.3) mg/dL AST 28 (14-36) U/L ALT 16 (6-35) U/L Alkaline Phosphatase 74 (38-126) U/L Total Protein 6.5 (6.3-8.2) g/dL Albumin 3.7 (3.5-5.1) g/dL Urine Color Dark yellow (Yellow) Urine Appearance Turbid H (Clear) Urine pH 5.5 (5.0-9.0) Ur Specific [place] 1.034 (1.001-1.035) Urine Protein 1+ H (Negative) mg/dL Urine Glucose (UA) Negative (Negative) mg/dL Urine Ketones 1+ H (Negative) mg/dL Ur Blood (Man) Negative (Negative) Urine Nitrate Negative (Negative) Urine Bilirubin Negative (Negative) Urine Urobilinogen 1.0 (<2.0) mg/dL Add Ur Microanalysis Reviewed Leukocyte Esterase Rfl Negative (Negative) IVON/UL Urine RBC 11-20 H (0-2) /hpf Urine WBC 6-10 H (0-3) /hpf Ur Squamous Epith Cells Many H (Few) /hpf Calcium Oxalate Crystal Present (None) /hpf Urine Bacteria 4+ H /hpf Urine Casts 3-5 Blood Type B Positive Antibody Screen Negative <Laurence Zavala PA-C - Last Filed: 05/28/25 22:30> Imaging Data Radiologist's impression: Impressions Abdomen/Pelvis CT 05/28/25 20:25 IMPRESSION: 1. Small to moderate amount of hemoperitoneum in the abdomen and pelvis with suggestion of subtle clot in the region of the ascending colon suggesting iatrogenic injury post reported recent colonoscopy. No free intraperitoneal gas or active extravasation. Dr. Bradshaw discussed these findings with Dr. Wynne at 8:35 PM. 2. Small sliding-type hiatal hernia with change of prior sleeve gastrectomy. <Huber Wynne MD - Last Filed: 05/29/25 17:47> Critical Care Time Critical Care Time Critical Care Time: No <Laurence Zavala PA-C - Last Filed: 05/28/25 22:30> Discharge Plan Discharge Clinical Impression: Hemorrhage, intraperitoneal, Anemia <Huber Wynne MD - Last Filed: 05/29/25 17:47> Patient Disposition: Acute Care Hospital <Huber Wynne MD - Last Filed: 05/29/25 17:47> Condition: Stable <Huber Wynne MD - Last Filed: 05/29/25 17:47> Instructions: Antibiotic Form, Abdominal Pain (ED) <Huber Wynne MD - Last Filed: 05/29/25 17:47> Patient Language: Kazakh <Huber Wynne MD - Last Filed: 05/29/25 17:47> Prescriptions: No Action Ozempic 1 mg/dose (4 mg/3 mL) pen injector 1 mg subcut WEEKLY multivitamin Tablet 1 tablet PO DAILY omega-3 fatty acids Capsule 1,000 mg PO DAILY <Huber Wynne MD - Last Filed: 05/29/25 17:47> Follow-up/Referrals: PHYSICIAN NOT ON STAFF,NONSTAFF [Non-Staff] <Huber Wynne MD - Last Filed: 05/29/25 17:47>
[2025-05-28] MEDS: LACTATED RINGERS 1,000 ML 999 ML IV CONT ×2 (19:40)
[2025-05-28 19:50] LABS: Hematocrit 28.2 % (37.0-47.0); Hemoglobin 9.0 g/dL (12.0-15.0); Immature Granulocyte Percent A 0.3 % (0-0.5); Lymphocytes Absolute Auto 3.63 K/mm3 (0.9-3.2); Mean Corpuscular HGB Conc 31.9 g/dl (32-36); Mean Corpuscular Hemoglobin 28.7 pg (26-34); Mean Corpuscular Volume 89.8 fl (80-100); Nucleated Red Blood Cells Absolute Auto 0.000 K/mm3 (0.0-0.012); Nucleated Red Blood Cells Perc 0.0 % (0.0-0.2); Platelet Count Result 213 k/mm3 (150-375); Red Blood Count 3.14 M/mm3 (4.2-5.4); White Blood Count 9.1 K/mm3 (4.5-10.0)
[2025-05-28 20:00] LABS: INR 1.0; Prothrombin Time 13.5 Seconds (11.1-14.7)
[2025-05-28 20:01] LABS: Partial Thromboplastin Time 26.8 Seconds (22.3-36.8)
[2025-05-28 20:04] LABS: Alanine Aminotransferase 16 U/L (6-35); Albumin Level 3.7 g/dL (3.5-5.1); Alkaline Phosphatase 74 U/L (38-126); Anion Gap 4 mmol/L (4-12); Aspartate Amino Transferase 28 U/L (14-36); Bilirubin,Total 0.4 mg/dL (0.2-1.3); Blood Urea Nitrogen 10 mg/dL (7-17); Calcium 8.5 mg/dL (8.4-10.2); Carbon Dioxide 29 mmol/L (22-30); Chloride 102 mmol/L (98-107); Estimated CRCL calculation 76 ml/min; Estimated Glomerular Filt Rate > 60; Glucose 96 mg/dL (65-110); Potassium 3.7 mmol/L (3.4-5.0); Sodium 135 mmol/L (137-145); Total Protein 6.5 g/dL (6.3-8.2)
[2025-05-28 20:15] LABS: Add Urine Microscopic? YES; Appearance Urine Turbid (Clear); Glucose Urine UA Negative (Negative); Leukocyte Esterase Ur Negative LEU/UL (Negative); Need Manual Microscopic Reviewed; Nitrate Urine Negative (Negative); Specific Grav Ur 1.034 (1.001-1.035)
--- OUTSIDE RECORDS SUMMARY | 2025-05-28 20:39 | XMS_ITS | Clinical Summary ---
Author Organization [facility] Medical [facility] 1 Address [address] [place] [address] Care Team Providers Care Guest Service Supervisor Name Role Phone Traelorin Yissel LAURIE Primary Care Provider [phone] Allergies Active Allergy Reactions Criticality Noted Date [...] 06/12/20212024 Pre-diabetes 05/05/2021 05/10/2025 No diagnosis on [place] I 03/30/202105/05 Hyperglycemia 03/04/2020 05/10/2025 Disorder of shoulder 10/31/2019 025 Hypertension associated with diabetes 12/10/2015 05/20/2025 Encounters Date Type Department Care Team Description 05/27/2025 8:30 AM CDT - 05/27/2025 9:00 AM CDT Surgery [address] [address] Eladio Hunt MD COLON BIOPSY 05/27/2025 8:25 AM CDT Anesthesia Event [address] [address] [facility] 05/27/2025 7:30 AM CDT - 05/27/2025 9:40 AM CDT Hospital Encounter [address] [address] Eladio Hunt MD Encounter for screening colonoscopy Discharge Disposition: Discharge to home or self care 05/21/2025 Telephone [facility] Primary Care at [address] [phone] Yissel Santacruz NP 05/16/2025 Orders Only [facility] Gastroenterology at [address] [place] [phone] Eladio Hunt MD Encounter for screening colonoscopy (Primary Dx); Nausea and vomiting, unspecified vomiting type 05/16/2025 Results Follow-Up [facility] Primary Care at [address] [phone] Yissle Santacruz NP Lipid panel, Albumin Creatinine Ratio, Urine 05/13/2025 3:45 PM CDT Lab [address] [address] Hyperlipidemia associated with type 2 diabetes mellitus (HCC); Type 2 diabetes mellitus with hyperlipidemia (HCC) 05/10/2025 3:30 PM CDT Office Visit [facility] Medical [facility] Primary Care at [address] [phone] Yissel Santacruz NP Morbid obesity with BMI [...] intermittent asthma without complication 02/27/2025 Results Follow-Up [facility] Invasive Surgery [address] [place] [address] Medical Office Building [address] [place] [phone] Dena Aponte NP Ferritin, Folate, Hemoglobin A1c, Additional followed-up results: 9 02/26/2025 10:30 AM CDT Lab [facility] Outpatient Lab at [address] [phone] 02/26/2025 10:23 AM CDT - 02/26/2025 11:59 PM CDT Hospital Encounter [address] [address] H/O gastric sleeve; Intestinal malabsorption, unspecified type; BMI 35.0-35.9,adult Discharge Disposition: Discharge to home or self care 02/25/2025 2:00 PM CDT Telemedicine [facility] Minimally Invasive Surgery [address] [place] [address] Medical Office Building [address] [place] [phone] Dena Aponte NP H/O gastric sleeve (Primary [...] on file Legal Sex Female 3:43 AM 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 CLERK Gender Identity Female 01/04/2022 6:05 AM CDT [...] POCT ORDERABLES - DEVICE Final Result [facility] [address] Department [place] [address] * Surgical pathology (05/27/2025 8:46 AM CDT) Tissue (Colon, Biopsy) 05/27/2025 8:46 AM CDT Narrative PATHOLOGY [facility] [facility] FOR [facility] - 05/28/2025 4:30 PM CDT [facility] Department of Pathology [address] [place] [id number] Note to Patients: This report may contain [...] : 1975 (Age: 50) Gender: F Address: [address] [place] [address] [facility] #: [id number] Service: Gastro Location: Patient Type: [facility] OUTPATIENT Taken: 05/27/2025 Received: 05/27/2025 Accessioned: [...] is entirely submitted. Labeled A1. Jar 0. [facility]/05/27/2025 14:37 EBONY Brower, PA ([facility]) Microscopic slide review and interpretation for this case was performed at [facility], Department of Surgical Pathology, [address] [facility], [place] [id number], [place] [address] CLIA # [id number] us Eladio Hunt MD LAB PATHOLOGY ORDERABLES Fin al Result [facility] * Colonoscopy (05/27/2025 8:23 AM CDT) Anatomical Region Laterality Modality Other Narrative Procedure Note Eladio Hunt MD - 05/27/2025 8:23 AM CDT [facility] Patient Name: Iliana Torres Procedure Date: 05/27/2025 8:23 AM Date of : 1975 Admit Type: Outpatient Age: 50 Gender: Female Attending MD: Eladio Hunt M.D., Room: [facility] PROCEDURE 1 Note Status: Finalized Procedure: [...] The scope was passed under direct vision.The [id number]-[id number] COLONOSCOPE was introduced through theanus and advanced [...] - DEVICE Final Result Performing Organization Address [facility] de Phone Number [address] [employer] [place], [place] [phone] * Albumin Creatinine Ratio, Urine (05/13/2025 3:47 PM CDT) Albumin Ur <12.0 mg/L Comment: Interpretive Data No reference range established. Current interpretive data was last revised 2019. Creatinine Ur 234.0 mg/dL [facility] Comment: Interpretive Data No reference range established. Current interpretive data was last revised 2019. Albumin Creatinine Ratio, Ur <5 1 - 29 mg/g [facility] Urine 05/13/2025 3:47 PM CDT 05/13/2025 6:36 PM CDT Yissel Santacruz NP LAB URINE ORDERABLES Final Re sult Performing Organization Address [facility] Co de Phone Number [address] [employer] [place], [place] [phone] * (ABNORMAL) Lipid panel (05/13/2025 3:47 PM [...] revised on 2018. HDL 64 >=40 mg/dL Z[facility]AN Comment: Interpretive Data Ages < [...] LAB BLOOD ORDERABLES Final Re sult ZORAN [address] [facility] Department of Laboratories [place], [place] [phone] * eGFR (02/26/2025 7:26 PM CDT) eGFR [...] Aponte NP LAB BLOOD ORDERABLES Final Result [facility] [address] [address] Department [place] [address] * (ABNORMAL) Differential, auto (02/26/2025 7:26 PM CDT) Neutrophil abs 3.10 1.50 - 6.50 K/cumm Imm gran abs 0.02 0.00 - 0.10 K/cumm [facility] Lymphocyte abs 3.46(H) 0.80 - 3.30 K/cumm [facility] Monocyte abs 0.48 0.20 - 0.80 K/cumm [facility] Eosinophil abs 0.36 0.00 - 0.50 K/cumm [facility] Basophil abs 0.07 0.00 - 0.10 K/cumm [facility] Neutrophil pct 41.4 % [facility] Comment: Interpretive Data Percent cell count [...] revised on 2017. Monocyte pct 6.4 % [facility] Comment: Interpretive Data Percent cell count [...] revised on 2017. Basophil pct 0.9 % [facility] Comment: Interpretive Data Percent cell count reference ranges are not reported, since discordance with absolute values may lead to misinterpretation of CBC data. Current Interpretive Data was last revised on 2017. Blood 02/26/2025 7:26 PM CDT 02/26/2025 7:43 PM CDT Dena Aponte KILN TENDER LAB BLOOD ORDERABLES Final Result ZORAN JERRY [address] [address] [place] [address] * Iron profile w/ IBC (02/26/2025 7:26 PM CDT) Pathologist [facility] Iron 99 35 - 145 mcg/dl TIBC 274 250 - 400 mcg/dL [facility] Transferrin saturation 36 20 - 50 % [facility] Blood 02/26/2025 7:26 PM CDT 02/26/2025 7:43 PM CDT Dena Aponte KILN TENDER LAB BLOOD ORDERABLES Final Result ZORAN JERRY [address] [address] [place] [address] * (ABNORMAL) CBC with auto differential (02/26/2025 7:26 PM CDT) Pathologist [facility] WBC 7.49 3.80 - 9.90 K/cumm Hgb [...] LAB BLOOD ORDERABLES Final Result ZORAN JERRY [address] [address] Department [place] [address] * Copper, serum (02/26/2025 7:26 PM CDT) Copper 107 77 - 206 mcg/dL [facility] Comment: ADDITIONAL INFORMATION This test was developed and its performance characteristics determined by [facility] in a manner consistent with CLIA requirements. This test has not been cleared or approved by the U.S. Food and Drug Administration. Test Performed by: [facility] - [address] [address] Music Sound Light Technician: Regulo Ca Ph.D.; CLIA# [id number] Blood 02/26/2025 7:26 PM CDT 03/01/2025 10:06 AM CDT Dena Brittny Cusumano KILN TENDER LAB BLOOD ORDERABLES Final Result Performing Organization Address City/[facility]/ZIP Co de Phone Number ZORAN JERRY [address] [address] [place] [address] [facility] * Vitamin D 25 hydroxy (02/26/2025 7:26 PM CDT) [facility] Vitamin D 25-OH 34 30 - 80 ng/mL Blood 02/26/2025 7:26 PM CDT 02/26/2025 7:43 PM CDT Dena Valdeznarinder Zhangzacherynelson KILN TENDER LAB BLOOD ORDERABLES Final Result Performing Organization Address [facility] Co de Phone Number ZORAN JERRY [address] [address] [place] [place] [address] * Vitamin B1 (02/26/2025 7:26 PM CDT) [facility] Thiamine (Vit B1) 112 70 - 180 nmol/L [facility] Comment: ADDITIONAL INFORMATION This test was developed and its performance characteristics determined by [facility] in a manner consistent with CLIA requirements. This test has not been cleared or approved by the U.S. Food and Drug Administration. Test Performed by: [facility] [place] [address] Music Sound Light Technician: Regulo Ca Ph.D.; CLIA# [id number] Blood 02/26/2025 7:26 PM CDT 02/26/2025 7:43 PM CDT Denasarah Aponte KILN TENDER LAB BLOOD ORDERABLES Final Result Performing Organization Address City/[facility] Co de Phone Number ZORAN JERRY [address] [address] [place] [address] [facility] * PTH (02/26/2025 7:26 PM CDT) [facility] PTH 45 15 - 65 pg/mL Blood 02/26/2025 7:26 PM CDT 02/26/2025 7:43 PM CDT Dena Aponte KILN TENDER LAB BLOOD ORDERABLES Final Result Performing Organization Address [facility] Co de Phone Number ZORAN [address] [address] [facility] [place] [address] * (ABNORMAL) Hemoglobin A1c (02/26/2025 7:26 PM CDT) Hgb A1C 5.7(H) 4.0 - 5.6 % Estimated Average Glucose 117 mg/dL [facility] JERRY Comment: The ADA recommends reporting an estimated Average Glucose (eAG) with all Hemoglobin A1c results using the equation derived from a study of 507 normal and diabetic adults. Minority populations were underrepresented and children were not included. (Diabetes Care 31:1913-6406, 2008). The eAG is not equivalent to a fasting glucose. Blood 02/26/2025 7:26 PM CDT 02/26/2025 7:43 PM CDT Dena Aponte NP LAB BLOOD ORDERABLES Final Result Performing Organization Address [facility] de Phone Number [place] [address] [address] [facility] [place] [address] * Folate (02/26/2025 7:26 PM CDT) Pathologist [facility] Folic acid 9.3 >=5.0 ng/mL Comment:Hemolysis present. R esults may be affected. Blood 02/26/2025 7:26 PM CDT 02/26/2025 7:43 PM CDT Dena Aponte NP LAB BLOOD ORDERABLES Final Result Performing Organization Address [facility] Co de Phone Number [facility] [address] [address] [facility] [place] [address] * (ABNORMAL) Ferritin (02/26/2025 7:26 PM CDT) Ferritin 199(H) 13 - 150 ng/mL Blood 02/26/2025 7:26 PM CDT 02/26/2025 7:43 PM CDT us Dena Mart Fadi KILN TENDER LAB BLOOD ORDERABLES Final Result Performing Organization Address [facility] Co de Phone Number [place] [address] [address] [place] [address] * Vitamin B12 (02/26/2025 7:26 PM CDT) Vitamin B12 367 230 - 1,250 pg/mL Blood 02/26/2025 7:26 PM CDT 02/26/2025 7:43 PM CDT Dena Brittny Aponte KILN TENDER LAB BLOOD ORDERABLES Final Result Performing Organization Address [facility] de Phone Number ZORAN [address] [address] [place] [address] * (ABNORMAL) Lipid panel (02/26/2025 7:26 PM [...] NP LAB BLOOD ORDERABLES Final Result CERNER [address] [address] [place] [address] * Comprehensive metabolic panel (02/26/2025 7:26 PM [...] 02/26/2025 7:43 PM CDT us Dena Aponte KILN TENDER LAB BLOOD ORDERABLES Final Result ZORAN [address] [place] [address] * MAMMOGRAPHY (09/29/2024) [facility] Signature Mammography Normal us Historical Provider HEALTH MAINTENANCE Final Result from Last 3 Months or Most Recently Relevant to Health Maintenance Insurance [facility] PL[facility] PL[facility] Advance Directives For more information, please contact: [phone] * Full Code (Latest Code Status on File) Date Activated Date Inactivated Comments 06/12/2021 4:30 PM 06/14/2021 2:22 PM Care Teams Guest Service Supervisor Relationship Specialty Start Date End Date Yissel Santacruz NP [address] [facility] [address] [place] [address] PCP - General Internal Medicine 05/10/25
--- OUTSIDE RECORDS SUMMARY | 2025-05-28 20:39 | XMS_ITS | Clinical Summary ---
Author Organization [facility] Address [address] [place] [address] Care Team Providers Care Fish Culturist Name Role Phone JacksonBartgayle Yfn MORRISON-EXCAVATION LABORER Primary Care Provider Source Comments [facility],non-owned Affiliates and Associated Physician Practices is amultiple site organization consisting of ambulatory clinics and hospital sitesin [place], [place], [place] and [place]. This disclosure is being madepursuant to the Care Everywhere program and may not contain all information available regarding this patient. Last updated 18.[facility] [employer] Allergies Active Allergy Reactions Criticality Noted Date [...] K 500-100-40 MG-UNT-MCG Take by mouth Active Ellijay-3 1000 MG Acti ve flecainide (Tambocor) 50 [...] on file Legal Sex Female 11:59 AM EDUCATION DEAN Gender Identity Not on file Sexual Orientation Not on file Last Filed Vital Signs Vital Sign Reading Time Taken Comments Blood Pressure 124/74 06/25/2020 3:55 PM EDUCATION DEAN Pulse 76 06/25/2020 3:55 PM EDUCATION DEAN Temperature 36.7 C (98 F) 06/25/2020 3:55 PM EDUCATION DEAN Respiratory Rate 18 06/25/2020 3:55 PM EDUCATION DEAN Oxygen Saturation 97% 06/25/2020 3:55 PM EDUCATION DEAN Inhaled Oxygen Concentration - - Weight 93 [...] to complete this topic Insurance Care Teams Fish Culturist Relationship Specialty Start Date End Date Kalee Jackson, RISK MANAGEMENT CONSULTANT-EXCAVATION LABORER [address] [place] [phone] PCP - General Nurse Practitioner Family 10/31/19
--- OUTSIDE RECORDS SUMMARY | 2025-05-28 20:39 | XMS_ITS | Data Portability ---
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 Plan of Treatment Reminders Order Date Submit Date Provider Last Modified By Organization Details Last Modified Time Details Appointments None recorded. Lab TSH, serum or plasma 2022 023 [facility] (Lab), [address] [place], [address], 3 22:00:52 lipid panel, serum 2022 023 [facility] (Lab), [address] [place], [address], 3 21:16:30 urinalysis, complete 2022 023 [email or web address] [facility] (Lab), [address] [place], [address], 3 15:45:28 HbA1c (hemoglobin A1c), blood 2022 023 [email or web address] [facility] (Lab), [address] [place], [address], 3 09:15:40 CMP, serum or plasma 2022 023 [facility] (Lab), [address] [place], [address], 3 21:16:41 CBC 2022 023 [facility] (Lab), [address] [place], [address], 19:46:58 Referral None recorded. Procedures None recorded. Surgeries None recorded. Imaging XR, knee, 3 view 2022 023 [facility], [address], [place], [address], 3 12:31:40 MAMMO, screening, digital, bilateral - *Please call pt to schedule* 2022 023 [email or web address] [address] [facility], [address], [place], [address], 09:23:24 Medication Orders lisinopril 10 mg-hydrochl orothiazide 12.5 mg tablet 2023 024 [facility][id number], [address], [place], [id number], 4 12:11:06 lisinopril 20 mg-hydrochl orothiazide 12.5 mg tablet 2022 023 [facility][id number], [address], [place], [id number], 3 10:23:14 Patient TargetsNo targets recorded. Patient InstructionsNo instructions recorded. Reason for Referral None Reported. Results Created Date Observation Date Name Description Value Unit Range Abnormal Flag Note LastModifiedBy Organization Detail LastModifiedTime 01/27/20 23 01/26/2023 CBC W/O DIFFE RENALINE AL white blood cells 7.3 x10'3 /uL 4.2-10 .8 Not Available [facility] (Lab) [address] [place], [address], 01/26/2023 19:46:58 01/27/20 23 01/26/2023 CBC W/O DIFFE RENTI AL red blood cells 4.96 x10'6 /uL 3.80-5 .20 Not Available [facility] (Lab) [address] [place], [address], 01/26/2023 19:46:58 01/27/20 23 01/26/2023 CBC W/O DIFFE RENTI AL hemoglobin 14.0 g/dL 12.0-1 5.6 Not Available [facility] (Lab) [address] [place], [address], 01/26/2023 19:46:58 01/27/20 23 01/26/2023 CBC W/O DIFFE RENTI AL hematocrit 43.2 % 35.7-4 5.7 Not Available [facility] (Lab) [address] [place], [address], 01/26/2023 19:46:58 01/27/20 23 01/26/2023 CBC W/O DIFFE RENTI AL mean red cell volume 87.1 fL 82.0-9 9.0 Not Available [facility] (Lab) [address] [place], [address], 01/26/2023 19:46:58 01/27/20 23 01/26/2023 CBC W/O DIFFE RENTI AL mean red cell hemoglobin 28.2 pg 27.0-3 3.0 Not Available [facility] (Lab) [address] [place], [address], 01/26/2023 19:46:58 01/27/20 23 01/26/2023 CBC W/O DIFFE RENTI AL mean RBC HGB concentratio n 32.4 g/dL 31.0-3 6.0 Not Available [facility] (Lab) [address] [place], [address], 01/26/2023 19:46:58 01/27/20 23 01/26/2023 CBC W/O DIFFE RENTI AL red cell distribution width 13.3 % 11.8-1 5.5 Not Available [facility] (Lab) [address] [place], [address], 01/26/2023 19:46:58 01/27/20 23 01/26/2023 CBC W/O DIFFE RENTI AL platelets 256 x10'3 /uL 150-40 0 Not Available [facility] (Lab) [address] [place], [address], 01/26/2023 19:46:58 01/27/20 23 01/26/2023 CBC W/O DIFFE RENTI AL mean platelet volume 13.0 fL 9.0-12 .4 high Not Available [facility] (Lab) [address] [place], [address], 01/26/2023 19:46:58 01/27/20 23 01/26/2023 URINA LYSIS COMPL ETE, IRIS color YELLOW Not Available [facility] (Lab) [address] [place], [address], 01/26/2023 19:55:07 01/27/20 23 01/26/2023 URINA LYSIS COMPL ETE, IRIS appear EXTRA TURBID abnormal Not Available [facility] (Lab) [address] [place], [address], 01/26/2023 19:55:07 01/27/20 23 01/26/2023 URINA LYSIS COMPL ETE, IRIS specific gravity 1.018 1.001- 1.030 Not Available [facility] (Lab) [address] [place], [address], 01/26/2023 19:55:07 01/27/20 23 01/26/2023 URINA LYSIS COMPL ETE, IRIS pH 6.5 pH_un its 5.0-9. 0 Not Available [facility] (Lab) [address] [place], [address], 01/26/2023 19:55:07 01/27/20 23 01/26/2023 URINA LYSIS COMPL ETE, IRIS leukocytes NEGATI VE jelena/u L negati ve- Not Available [facility] (Lab) [address] [place], [address], 01/26/2023 19:55:07 01/27/20 23 01/26/2023 URINA LYSIS COMPL ETE, IRIS nitrite NEGATI VE negati ve- Not Available [facility] (Lab) [address] [place], [address], 01/26/2023 19:55:07 01/27/20 23 01/26/2023 URINA LYSIS COMPL ETE, IRIS protein NEGATI VE mg/dL negati ve- Not Available [facility] (Lab) [address] [place], [address], 01/26/2023 19:55:07 01/27/20 23 01/26/2023 URINA LYSIS COMPL ETE, IRIS glucose NORMAL mg/dL normal - Not Available [facility] (Lab) [address] [place], [address], 01/26/2023 19:55:07 01/27/20 23 01/26/2023 URINA LYSIS COMPL ETE, IRIS ketones NEGATI VE mg/dL negati ve- Not Available [facility] (Lab) [address] [place], [address], 01/26/2023 19:55:07 01/27/20 23 01/26/2023 URINA LYSIS COMPL ETE, IRIS urobilinogen NORMAL mg/dL normal - Not Available [facility] (Lab) [address] [place], [address], 01/26/2023 19:55:07 01/27/20 23 01/26/2023 URINA LYSIS COMPL ETE, IRIS bilirubin NEGATI VE mg/dL negati ve- Not Available [facility] (Lab) [address] [place], [address], 01/26/2023 19:55:07 01/27/20 23 01/26/2023 URINA LYSIS COMPL ETE, IRIS blood NEGATI VE mg/dL negati ve- Not Available [facility] (Lab) [address] [place], [address], 01/26/2023 19:55:07 01/27/20 23 01/26/2023 URINA LYSIS COMPL ETE, IRIS white blood cells 0-8 /i??h pfi?? 0-8 Not Available [facility] (Lab) [address] [place], [address], 01/26/2023 19:55:07 01/27/20 23 01/26/2023 URINA LYSIS COMPL ETE, IRIS red blood cells 0-4 /i??h pfi?? 0-4 Not Available [facility] (Lab) [address] [place], [address], 01/26/2023 19:55:07 01/27/20 23 01/26/2023 URINA LYSIS COMPL ETE, IRIS bacteria NONE Not Available [facility] (Lab) [address] [place], [address], 01/26/2023 19:55:07 01/27/20 23 01/26/2023 URINA LYSIS COMPL ETE, IRIS mucous FEW /i??l pfi?? abnormal Not Available [facility] (Lab) [address] [place], [address], 01/26/2023 19:55:07 01/27/20 23 01/26/2023 URINA LYSIS COMPL ETE, IRIS squamous epithelial PACKED FIELD /i??l pfi?? abnormal Not Available [facility] (Lab) [address] [place], [address], 01/26/2023 19:55:07 01/27/20 23 01/26/2023 URINA LYSIS COMPL ETE, IRIS calcium oxalate crystal MODERA TE /i??h pfi?? none seen- abnormal Not Available [facility] (Lab) [address] [place], [address], 01/26/2023 19:55:07 01/27/20 23 01/26/2023 HEMOG LOBIN A1C HA1C 5.6 % 4.0-6. 0 Diabe jonathan Scree serina Crite luz marina: <5.7% Consi stent with absen ce of diabe jonathan 5.7-6 .4% Consi stent with incre ased risk for diabe jonathan (pred iabet es) >OR=6 .5% Consi stent with diabe jonathan REFER ENCE: Diabe jonathan Care 2016, 39([place] ppl.1 ):s13 -s22 Not Available [facility] (Lab) [address] [place], [address], 01/26/2023 20:22:48 01/27/20 23 01/26/2023 LIPID PANEL cholesterol 229 mg/dL 140-19 9 high NIH DASHAWN NSUS RECOM MENDA TION FOR CAIT STERO L: ADULT CHILD LOW RISK: <200 <170 BORDE RLINE : <200- 239 ----- HIGH RISK: >240 >200 Not Available [facility] (Lab) [address] [place], [address], 01/26/2023 21:16:30 01/27/20 23 01/26/2023 LIPID PANEL triglyceride s 206 mg/dL 0-150 high NIH DASHAWN NSUS REPOR T RECOM MENDA TION FOR TRIGL YCERI KATELYNN: ADULT CHILD LOW RISK: <150 ----- BODER LINE: 150-1 99 ----- HIGH RISK: >200 ----- Not Available [facility] (Lab) [address] [place], [address], 01/26/2023 21:16:30 01/27/20 23 01/26/2023 LIPID PANEL HDL cholesterol 60 mg/dL 40- Not Available [facility] (Lab) [address] [place], [address], 01/26/2023 21:16:30 01/27/20 23 01/26/2023 LIPID PANEL LDL cholesterol, calculated 128 mg/dL 0-130 NIH DASHAWN NSUS REPOR T RECOM MENDA TIONS FOR LDL: ADULT CHILD LOW RISK <130 <110 (OPTI MAL LDL) <100 ----- JILL RLINE : 130-1 59 ----- HIGH RISK: >160 >130 A TRIGL YCERI DE RESUL T >400 INVAL IDATE S THE CALCU LATIO N FOR LDL FRACT IONAT ION - THE LDL RESUL T WILL NOT BE REPOR MICHELLE. Not Available [facility] (Lab) [address] [place], [address], 01/26/2023 21:16:30 01/27/20 23 01/26/2023 COMPR EHENS LAURA METAB OLIC PANEL sodium 137 mmol/ L 137-14 5 Not Available [facility] (Lab) [address] [place], [address], 01/26/2023 21:16:41 01/27/20 23 01/26/2023 COMPR EHENS LAURA METAB OLIC PANEL potassium 3.8 mmol/ L 3.5-5. 1 Not Available [facility] (Lab) [address] [place], [address], 01/26/2023 21:16:41 01/27/20 23 01/26/2023 COMPR EHENS LAURA METAB OLIC PANEL chloride 101 mmol/ L 98-107 Not Available [facility] (Lab) [address] [place], [address], 01/26/2023 21:16:41 01/27/20 23 01/26/2023 COMPR EHENS LAURA METAB OLIC PANEL carbon dioxide 28 mmol/ L 22-30 Not Available [facility] (Lab) [address] [place], [address], 01/26/2023 21:16:41 01/27/20 23 01/26/2023 COMPR EHENS LAURA METAB OLIC PANEL anion gap 11.8 mmol/ L 14-22 low Not Available [facility] (Lab) [address] [place], [address], 01/26/2023 21:16:41 01/27/20 23 01/26/2023 COMPR EHENS LAURA METAB OLIC PANEL glucose 100 mg/dL 70-99 high Not Available [facility] (Lab) [address] [place], [address], 01/26/2023 21:16:41 01/27/20 23 01/26/2023 COMPR EHENS LAURA METAB OLIC PANEL BUN 9 mg/dL 8-19 Not Available [facility] (Lab) [address] [place], [address], 01/26/2023 21:16:41 01/27/20 23 01/26/2023 COMPR EHENS LAURA METAB OLIC PANEL creatinine 0.52 mg/dL 0.66-1 .25 low Not Available [facility] (Lab) [address] [place], [address], 01/26/2023 21:16:41 01/27/20 23 01/26/2023 COMPR EHENS LAURA METAB OLIC PANEL GFR >60 Refer ence Range : [place] ge GFR Healt hy Adult : >60 mL/mi n/1.7 3 m2 Chron ic Kidne y Disea se: 15-60 mL/mi n/1.7 3 m2 Kidne y Failu re: <15/m L/min /1.73 m2 www.n iddk. nih.g ov The MDRD study equat ion has not been valid ated in child daniel <18 years of age; pregn ant women ; the elder ly >85 years of age; or in some racia l or ethni c subgr oups, such as Hispa nics. Outsi de the valid ated pascale eters , estim ated GFR is less accur ate, requi ring clini nacho judgm ent on a case- by-ca se basis . Clini nacho inter preta tion for other races and ages must be made by the clini lynette. The MDRD study equat ion has not been valid ated for the evalu ation of serum creat inine relat ed to nutri aylin l statu s or medic ation usage . For perso ns <18 years of age, a pedia tric GFR calcu lator is avail able on the [facility] websi te: https :[email or web address] maldonado.[email or web address] wheatley.o rg/pr ofess ional s/kdo qi/gf r_cal culat or Not Available [facility] (Lab) [address] [place], [address], 01/26/2023 21:16:41 01/27/20 23 01/26/2023 COMPR EHENS LAURA METAB OLIC PANEL alkaline phosphatase 82 U/L 38-126 Not Available [facility] (Lab) [address] [place], [address], 01/26/2023 21:16:41 01/27/20 23 01/26/2023 COMPR EHENS LAURA METAB OLIC PANEL alanine aminotransfe rase 25 U/L 0-35 Not Available [facility] (Lab) [address] [place], [address], 01/26/2023 21:16:41 01/27/20 23 01/26/2023 COMPR EHENS LAURA METAB OLIC PANEL aspartate aminotransfe rase 30 U/L 15-37 Not Available [facility] (Lab) [address] [place], [address], 01/26/2023 21:16:41 01/27/20 23 01/26/2023 COMPR EHENS LAURA METAB OLIC PANEL bilirubin, total 0.50 mg/dL 0.20-1 .30 Not Available [facility] (Lab) [address] [place], [address], 01/26/2023 21:16:41 01/27/20 23 01/26/2023 COMPR EHENS LAURA METAB OLIC PANEL calcium 9.6 mg/dL 8.4-10 .2 Not Available [facility] (Lab) [address] [place], [address], 01/26/2023 21:16:41 01/27/20 23 01/26/2023 COMPR EHENS LAURA METAB OLIC PANEL total protein 7.2 g/dL 6.3-8. 2 Not Available [facility] (Lab) [address] [place], [address], 01/26/2023 21:16:41 01/27/20 23 01/26/2023 COMPR EHENS LAURA METAB OLIC PANEL albumin 3.9 g/dL 3.4-5. 0 Not Available [facility] (Lab) [address] [place], [address], 01/26/2023 21:16:41 01/27/20 23 01/26/2023 COMPR EHENS LAURA METAB OLIC PANEL globulin 3.3 g/dL 2.6-4. 2 Not Available [facility] (Lab) [address] [place], [address], 01/26/2023 21:16:41 01/27/20 23 01/26/2023 COMPR EHENS LAURA METAB OLIC PANEL A/G ratio 1.2 ratio 1.0-2. 0 Not Available [facility] (Lab) [address] [place], [address], 01/26/2023 21:16:41 01/27/20 23 01/26/2023 TSH thyroid-stim ulating hormone 1.240 uIU/m L 0.465- 4.680 Not Available [facility] (Lab) [address] [place], [address], 01/26/2023 22:00:52 08/12/20 22 XR, hand No observ ation record ed. [id number] Nancy Pizarro [address] [facility] [address], [place], [address], 10/20/2022 17:20:13 12/29/19 23 12/28/2022 XR, foot No observ ation record ed. [address], [place], [address], 12/28/2022 11:19:51 02/10/20 23 02/09/2023 XR, knee, 3 view No observ ation record ed. [address], [place], [address], 02/09/2023 13:48:58 08/26/19 24 08/26/2023 MAMMO , scree serina, digit al, bilat eral No observ ation record ed. [facility] [address], [place], [address], 08/29/2023 12:44:37 08/30/19 24 08/26/2023 MAMMO , scree serina, digit al, bilat eral No observ ation record ed. [facility] [address], [place], [address], 08/30/2023 08:46:46 08/30/19 24 08/30/2023 XR, knee, 3 view No observ ation record ed. [address] [facility] [address], [place], [address], 08/30/2023 10:48:18 09/27/19 24 09/27/2023 MAMMO , diagn ostic , digit al, unila teral No observ ation record ed. [email or web address] [address], [place], [address], 01/04/2024 14:45:54 12/18/19 24 12/17/2023 XR, femur , 2 or more view No observ ation record ed. [address] [address], [place], [address], 01/11/2024 14:20:25 01/03/20 24 01/03/2024 MRI, lumba r spine , w/o contr ast No observ ation record ed. [address] [address], [place], [address], 01/11/2024 14:20:26 03/09/20 24 03/09/2024 elect annie ramsaygr am No observ ation record ed. [email or web address] [facility] [address], [place], [address], 03/21/2024 16:40:18 03/09/20 24 03/09/2024 US, echoc ardio gram No observ ation record ed. [email or web address] [facility] [address], [place], [address], 03/21/2024 16:40:33 04/21/20 24 04/21/2024 US, abdom en No observ ation record ed. [address] [address], [place], [address], 05/03/2024 11:12:35 04/21/20 24 04/21/2024 XR, chest , 2 view No observ ation record ed. [address] [address], [place], [address], 05/03/2024 11:12:45 10/03/19 25 09/29/2024 imagi ng/di agnos tic resul t No observ ation record ed. [facility] [address], [place], [address], 10/03/2024 13:11:50 Result Notes None recorded. Problems Name Problem SNOMED Code Status Onset Date Resolution Date Notes Provider Name and Address Organization Details Recorded Time Disorder of shoulder 020688198 Active Not Available [facility] 3 10:11:36 Hyperglyce shakeel 95741887 Active 2019 Not Available [facility] 3 10:11:36 Pain of left hand 2329918272276 03 Active 2021 Not Available [facility] 3 10:11:36 Elevated blood-pres sure reading without diagnosis of hypertensi on 934385498 Active 2022 Not Available [facility] 3 10:11:36 Essential hypertensi on 77236302 Active 2022 Not Available [facility] 3 10:11:36 Pain of right knee joint 9717133730333 00 Active 2022 Not Available [facility] 3 10:11:36 Hyperlipid emia 06027614 Active 2022 Not Available [facility] 3 10:11:36 Mammograph y abnormal 602504283 Active 2023 TAMMI Mccullough [address], [place], [address] , [employer] 4 11:30:17 Radiology result abnormal 714217591 Active 2023 Carly Londono MD [address], [place], [address] , [employer] 4 15:38:20 Lumbar radiculopa thy 121818436 Active 2023 Carly Londono MD [address], [place], [address] , [employer] 4 18:52:45 Problem Notes None recorded. Procedures Surgical History Date Name Laterality Status Provider Name and Address Organization Details Recorded Time 08/22/19 12 Carpal tunnel completed Tonia Osorio MA [employer] 02/09/2023 10:09:28 06/28/20 11 section completed Not Available [facility] 08/2022 17:18:05 08/22/19 09 Lithotripsy completed Not Available [facility] 10/21/19 17:18:05 sleeve resection of stomach completed Not Available [facility] 10/20/2022 17:18:05 Partial hysterectomy completed Kalee Jackson, JIGMAN [address] [facility] [facility] [address], [place], [address], [employer] 01/26/2023 10:20:13 Imaging Results None recorded. Procedure Notes None recorded. Medical Equipment None Reported. Allergies No known drug allergies Medications Name Sig Start Date Stop Date Status Note LastModified by Organization Details LastModified Time Prescriptio n - Prior Authorizati on Request active Not Available Not Available N ot Available pindolol 10 mg tablet TK 1 T PO BID 06/03 completed Not Available Not Available Not Available cyclobenzap rine 10 mg tablet Take 1 tablet 3 times a day by oral route for 30 days. active Not Available Not Available No t Available amoxicillin 500 mg capsule Take 1 capsule twice a day by oral route for 7 days. 11/01 completed Not Available Not Available Not Available prednisone 10 mg tablet 01/26 completed Not Available Not Available Not Available clindamycin HCl 300 mg capsule TK ONE C PO TID TAT 06/03 completed Not Available Not Available Not Available lisinopril 20 mg-hydrochl orothiazide 12.5 mg tablet TAKE 1 TABLET DAILY active Not Available Not Available No t Available azithromyci n 250 mg tablet 06/03 completed Not Available Not Available Not Available benzonatate 200 mg capsule Take 1 capsule 3 times a day by oral route as needed for 10 days. active Not Available Not Available No t Available hydrocodone 5 mg-acetamin ophen 325 mg tablet TAKE 1 TABLET BY MOUTH EVERY 6 HOURS NEEDED. active Not Available Not Available No t Available naltrexone 50 mg tablet TAKE 1 TABLET BY MOUTH EVERY DAY 01/30 completed Not Available Not Available Not Available phenazopyri dine 200 mg tablet 11/01 completed Not Available Not Available Not Available prednisone 20 mg tablet TAKE 2 TABLETS BY MOUTH DAILY WITH FOOD FOR 5 DAYS active Not Available Not Available No t Available methylpredn isolone 4 mg tablet TK 1 T PO D IN THE MORNING WF OR MILK FOR 7 DAYS 06/03 completed Not Available Not Available Not Available penicillin V potassium 500 mg tablet TK 1 T PO BID FOR 10 DAYS FOR THROAT INFECTION 06/03 completed Not Available Not Available Not Available topiramate 25 mg tablet TK ONE T PO BID. 12/14 completed Not Available Not Available Not Available Vitamin B-12 500 mcg tablet TAKE 1 TABLET BY MOUTH DAILY active Not Available Not Available No t Available metronidazo le 500 mg tablet TK 1 T PO BID 06/03 completed Not Available Not Available Not Available phentermine 37.5 mg tablet TAKE 1 TABLET BY MOUTH EVERY DAY active Not Available Not Available No t Available acetaminoph en 500 mg tablet TAKE 2 TABLET BY MOUTH EVERY 8 HOURS active Not Available Not Available No t Available ketorolac 30 mg/mL (1 mL) injection solution Inject 1 mL every day by intramusc ular route for 1 day. 2022 active Not Available Not Available Not Avai lable prednisone 10 mg tablets in a dose pack Take 1 tab by mouth, 3 times a day for 3 daysTake 1 tab by mouth 2 times a day for 2 daysTake 1 tab by mouth once a day for 1 day 01/26 completed Not Available Not Available Not Available oxycodone-a cetaminophe n 5 mg-325 mg tablet TAKE 1 TO 2 TABLETS BY MOUTH EVERY 6 HOURS NEEDED FOR PAIN OR ACUTE PAIN 08/12 completed Not Available Not Available Not Available bupropion HCl 100 mg tablet Take one tablet PO BID 04/11 completed Not Available Not Available Not Available amoxicillin 875 mg tablet TAKE 1 TABLET BY MOUTH EVERY 12 HOURS FOR 10 DAYS active Not Available Not Available No t Available magnesium oxide 400 mg (241.3 mg magnesium) tablet TAKE 1 TABLET BY MOUTH TWICE DAILY active Not Available Not Available No t Available OneTouch Ultra Test strips 06/03 completed Not Available Not Available Not Available triamcinolo ne acetonide 40 mg/mL suspension for injection Take 40 mg by injection route. 2022 active Not Available Not Available Not Avai lable pantoprazol e 40 mg tablet,mamie yed release Take 1 tablet every day by oral route for 90 days. active Not Available Not Available No t Available hyoscyamine 0.125 mg sublingual tablet 08/12 completed Not Available Not Available Not Available lidocaine 5 % topical patch 08/12 completed Not Available Not Available Not Available ursodiol 300 mg capsule Take 1 capsule twice a day by oral route for 90 days. active Not Available Not Available No t Available flecainide 50 mg tablet TAKE 1 TABLET BY MOUTH TWICE DAILY active Not Available Not Available No t Available bupropion HCl 75 mg tablet Take 1 tablet twice a day by oral route for 30 days. active Not Available Not Available No t Available hydrochloro thiazide 12.5 mg capsule 08/12 completed Not Available Not Available Not Available HCG 10,000 unit intramuscul ar solution Inject by intramusc ular route. 04/11 completed Not Available Not Available Not Available diclofenac sodium 75 mg tablet,mamie yed release 06/03 completed Not Available Not Available Not Available lisinopril 10 mg-hydrochl orothiazide 12.5 mg tablet TAKE 1 TABLET DAILY 2023 active Not Available Not Available Not Avai lable scopolamine 1 mg over [address] 1 PATCH ON THE SKIN AT 8PM THE NIGHT PRIOR TO THE SURGERY 08/12 completed Not Available Not Available Not Available methylpredn isolone 4 mg tablets in a dose pack FOLLOW PACKAGE DIRECTION S 01/26 completed Not Available Not Available Not Available albuterol sulfate HFA 90 mcg/actuati on aerosol inhaler Inhale 2 puffs every 4 hours by inhalatio n route as needed. active Not Available Not Available No t Available ondansetron 4 mg disintegrat ing tablet 08/12 completed Not Available Not Available Not Available cefdinir 300 mg capsule 06/03 completed Not Available Not Available Not Available etodolac 500 mg tablet 06/03 completed Not Available Not Available Not Available fluticasone propionate 50 mcg/actuati on nasal spray,suspe nsion [place] 1 spray every day by intranasa l route for 30 days. 04/11 completed Not Available Not Available Not Available amoxicillin 875 mg-potassiu m clavulanate 125 mg tablet TK 1 T PO BID TAT 06/03 completed Not Available Not Available Not Available pindolol 5 mg tablet 06/03 completed Not Available Not Available Not Available oxycodone 5 mg tablet Take 1 tablet every 6 hours by oral route as needed. active Not Available Not Available No t Available cyclobenzap rine 5 mg tablet TAKE 1 TABLET BY MOUTH THREE TIMES DAILY NEEDED FOR MUSCLE SPASM active Not Available Not Available No t Available nitrofurant oin monohydrate /macrocryst als 100 mg capsule TK 1 C PO Q 12 H FOR 5 DAYS 08/12 completed Not Available Not Available Not Available magnesium oxide Tk 1 c po BID active Not Available Not Available No t Available phentermine 12/14 completed Not Available Not Available Not Available OneTouch Ultra2 Meter kit 06/03 completed Not Available Not Available Not Available Amitiza 24 mcg capsule 02/19 completed Not Available Not Available Not Available aprepitant 40 mg capsule TAKE ONE CAPSULE BY MOUTH AT 8PM THE NIGHT PRIOR TO SURGERY 08/12 completed Not Available Not Available Not Available hydrochloro thiazide 12.5 mg tablet 06/03 completed Not Available Not Available Not Available FeroSul 325 mg (65 mg iron) tablet TAKE 1 TABLET BY MOUTH DAILY 08/12 completed Not Available Not Available Not Available OneTouch Delica Lancets 33 gauge 06/03 completed Not Available Not Available Not Available Contrave 8 mg-90 mg tablet,exte nded release TAKE 1 TABLET BY MOUTH EVERY DAY FOR 1 WEEK, 1 TWICE DAILY 1 WEEK, 2 IN THE MORNING AND 1 EVENING 1 WEEK, THEN 2 TWICE DAILY active Not Available Not Available No t Available Ozempic 0.25 mg or 0.5 mg (2 mg/1.5 mL) subcutaneou s pen injector INJECT 0.5 MG WEEK AFTER INITIAL 0.25MG DOSE. 07/30 completed Not Available Not Available Not Available ID NOW COVID-19 Test Kit DIRECTED active Not Available Not Available No t Available Ozempic 1 mg/dose (4 mg/3 mL) subcutaneou s pen injector INJECT 1 MG UNDER THE SKIN EVERY WEEK 2024 active Not Available Not Available Not Avai lable Therems-M 9 mg iron-400 mcg tablet TAKE 1 TABLET BY MOUTH DAILY 08/12 completed Not Available Not Available Not Available Flowflex COVID-19 Antigen Home Test kit Use as Directed on the Package active Not Available Not Available No t Available Ozempic 0.25 mg or 0.5 mg (2 mg/3 mL) subcutaneou s pen injector INJECT 0.5 MG UNDER THE SKIN ONE DAY A WEEK active Not Available Not Available No t Available Vitals Date Recorded Body height Body mass index (BMI) Body weight Body temperature Heart rate Oxygen saturation Oxygen saturation in Arterial blood by Pulse oximetry Systolic And Diastolic Provider Name and Address Organization Details Last Updated DateTime 3 154.94 cm 45.9 kg/m2 071308. 95 g 95.8 [degF] 61 /min 95 % 95 % 146/96 mm[Hg] Gilda Winn RN [facility] [employer] [facility] 3 10:08:38 Date Recorded Body height Body mass index (BMI) Body weight Body temperature Heart rate Oxygen saturation Oxygen saturation in Arterial blood by Pulse oximetry Systolic And Diastolic Provider Name and Address Organization Details Last Updated DateTime 3 154.94 cm 45.3 kg/m2 121810. 17 g 98.1 [degF] 63 /min 98 % 98 % 142/98 mm[Hg] Tonia Osorio MA [facility] [employer] 3 10:08:37 Date Recorded Body height Provider Name an d Address Organization Details Last Updated DateTime 02/11/2023 154.94 cm Brittany Hilton [facility] 02/11/2023 11:08:03 Date Recorded Body weight Body temperature Heart rate Oxygen saturation Oxygen saturation in Arterial blood by Pulse oximetry Systolic And Diastolic Provider Name and Address Organization Details Last Updated DateTime 4 59872.6 6 g 98.1 [degF] 61 /min 98 % 98 % 110/70 mm[Hg] Kaylie Elkins RN [facility] [employer] [facility] 4 11:56:33 Date Recorded Body mass index (BMI) Body height Body weight Provider Name and Address Organization Details Last Updated DateTime 08/12/2022 44.4 kg/m2 154.94 cm 568599.21 g Not Available [employer] 10/20/2022 17:18:14 Social History Question Answer Notes LastModified by Organizat ion Details LastModified Time Tobacco Smoking Status Never Smoker KimmieELZBIETA Miranda [place] [employer] [facility] 02/09/2023 09:58:15 What Is Your Level Of Caffeine Consumption? Moderate [id number] Information not available 10/20/2022 How Much Tobacco Do You Chew? None [id number] Information not available 10/20/2022 In The 14 Days Before Symptom Onset, Have You Had Close Contact With A Laboratory-confirm ed COVID-19 While That Case Was Ill? No [email or web address] Information n ot available 02/09/2023 In The 14 Days Before Symptom Onset, Have You Had Close Contact With A Person Who Is Under Investigation For COVID-19 While That Person Was Ill? No [email or web address] Information not available 02/09/2023 What Type Of Diet Are You Following? REGULAR [id number] Information not available 10/20/2022 Which Illicit Or Recreational Drugs Have You Used? No [email or web address] Information not available 02/09/2023 Are You Passively Exposed To Smoke? No [email or web address] Information no t available 02/09/2023 Do You Use Sunscreen Routinely? Yes [email or web address] Information not available 02/09/2023 Sex: Unknown Functional Status Question Answer Note LastModified by [employer] Details LastModified Time What is your level of alcohol consumption? None [id number] Information not available 10/20/2022 Do you or have you ever used smokeless tobacco? 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 Never used electronic cigarettes [email or web address] Information not available 02/09/2023 What is your exercise level? Moderate [id number] Information not available 10/20/2022 Mental Status None recorded. Family History Relationship Description Onset Age of this Age Resolved Age Notes LastModified by Organization Details LastModified Time Father Hypertensive disorder [id number] Not available 10/20/2022 17:18:05 Maternal Grandmother Malignant neoplasm of colon frivastorres Not available 11:49:52 Medical History Condition Response ANEMIA/BLOOD DISORDER Y HYPERTENSION Y Gynecological History Statement/Question Response Menses Monthly N Date of Last Pap Abnormal Pap Y Current Control Method Hysterectom y Date of LMP Breast Problems no Obstetrics History GPAL:G 4 P 4 0 0 4 Type Value Full Term 4 Living 4 Total 4 Immunizations Vaccine Type Date Status Note Provider Nam e and Address Organization Details Recorded Time COVID-19 IV Non-US Vaccine (COVAXIN) 12/04/2020 completed Not Available [facility] 3 08:06:55 COVID-19 IV Non-US Vaccine (COVAXIN) 11/03/2020 completed Not Available [facility] 3 08:06:55 Tdap 02/09/2018 completed Not Available [facility] 07/20/2023 08:06:55 Past Encounters Encounter ID Performer Location Encounter Start Date Encounter Closed Date Diagnosis/Indication Diagnosis SNOMED-CT Code Diagnosis ICD10 Code Diagnosis IMO Codes Diagnosis Note [id number] ADAMA Gordon S_[facility] [place] Primary [place] [address] [place] [address] 01/30/2021 00:00:00 01/30/2021 16:26:55 [id number] Carly Londono MD S_[facility] [place] Primary Care [place] [address] [place] [address] 02/24/2021 00:00:00 02/24/2021 17:37:28 [id number] TAMMI Mccullough S_[facility] [place] Primary [place] [address] [place] [address] 08/07/2021 00:00:00 08/07/2021 18:38:30 [id number] John Barrera MD [facility] [place] Ortho Nancy Pizarro [address] [facility] [address] [place] [address] 08/12/2022 00:00:00 08/12/2022 14:28:57 [id number] ADAMA Gordon [facility] [place] Primary Care [place] [address] [place] [address] 01/26/2023 10:00:05 01/26/2023 11:04:37 Adult health examination [id number] Z00.00 Z13.29 Z13.220 Z13.89 Z13.1 Z00.01 Adult Health Exam--Due for routine labs (CBC, CMP, Lipids, HgA1C, TSH, UA).--Mamm ogram up to date (05/26/22)- -Bone Density at 65yo if indicated- -PAP/WWE-n ot indicated d/t hyst (2016)--Td ap recommende d q 10 years-up to date (02/09/2018 )--Flu recommende d yearly--CO VID-19 recommende d-complete d--Encoura ged yearly dental, vision, hearing screenings Screening mammography 24 521329 Z12.31 Routine mammogram wnl (05/26/22)O rder pending for routine mammogram when due. Essential hypertension 40440833 I10 Normally well controlled w/o meds, but elevated in office today and pt reports higher bps on home cuff as well.Asymp milla at this timeEncour aged pt to increase water intake, reduce caffeine intake, exercise regularly, decrease/e liminate sodium intake, work on weight loss and stress reductionW ill continue to monitor closely and consider medication if still high next visit. [id number] ADAMA Gordon S_[facility] [address] [place] [address] 02/09/2023 09:57:32 02/09/2023 10:24:58 Essential hypertension 44142803 I10 Normally well controlled w/o meds, but elevated in office today and pt reports higher bps on home cuff as well.Felicia loyola at this timeEncour aged pt to increase water intake, reduce caffeine intake, exercise regularly, decrease/e liminate sodium intake, work on weight loss and stress reductionW ill resume lisinopril 20mg-hctz 12.5mg daily Pain of ri ght knee joint [id number] 71914 M25.561 New problemSus pect arthritis or overuse d/t pt working side job going in/out of vehicle and this is movement she is not used to.Will send for xray. Advised to wear otc brace. Discussed RICE. Hyperglycemia 82983378 R 73.9 New Finding on iiuhS5Q wnl (01/26/23)Di scussed need for regular exercise, increase intake of water/vege tables/fib er. Decrease intake of carbs, especially white rice/pasta /flour/estevan ad/sugar. Hyperlipidemia 00471796 E78.5 Chronic, stableStil l above goaltotal 229, trigs 206 (01/26/23)Di scussed need for regular exercise, increase intake of water/vege tables/fib er. Decrease the amount of greasy/fat ty/fried foods in diet. Continue taking a daily fish oil supplement . [id number] ADAMA Gordon [facility] Primary Care [facility] [address] [facility] [address] [place] [address] 02/11/2023 09:57:42 02/11/2023 11:06:44 [id number] LORELEI Chopra [facility] Primary Care [facility] [address] [facility] [address] [place] [address] 03/15/2024 11:47:24 03/15/2024 12:08:45 Essential hypertension 75146868 I10 110/70.Jeannine portillo will monitor BP readings at home and contact office in two weeks with readings. Health Concerns Section Related Observation LastModified by Organization Detai ls LastModified Time None Recorded Concern Status LastModified by Organization Details LastModified Time None Recorded Advance Directives Directive None Recorded Payers Insurance Date Sequence Insurance Name Policy Number Policy Ochoa Covered Member ID Ochoa Member ID Guarantor Name 10/23/2024 1 [facility] [id number] Iliana Ochoa [id number] Iliana Ochoa 10/23/2024 [facility] Iliana Ochoa SELF SELF Iliana Ochoa Notes Date Note Type Note Provider Name and Address Organization Details Recorded Time 01/26/2023 text/html 1. Pt in office for annual well visit/physical.2. Pt states she has been checking bps at home and they are running higher than normal. Denies any cp, sob, palpitations, HAs or vision changes. ADAMA Gordon [address] [facility] [facility] [address], [place], [address], [place] - [employer] 01/26/2023 12:26:37 02/09/2023 text/html 02/09/23: 1. Pt in office for 2 week f/u on labs.2. Pt c/o having pain in right knee for the past week or so. 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 Minimal improvement with acetaminophen. Unable to take nsaids d/t previous bariatric surgery. 01/26/23: 1. Pt in office for annual well visit/physical.2. Pt states she has been checking bps at home and they are running higher than normal. Denies any cp, sob, palpitations, HAs or vision changes. ADAMA Gordon [address] [employer] [place], [place], [address], [employer] 02/09/2023 13:37:25 03/15/2024 text/html ROS as noted in the HPI Patient is a 48 year old female that presents to the office to discuss blood pressure medication. Patient reports since her weight loss surgery she has lost 100 pounds and her BP has been running 990s/60s. Patient denies symptoms associated with lower blood pressure but she would like to try and adjust her medications. Patient denies chest pain and shortness of breath, nausea vomiting and diarrhea. LORELEI Chopra [address] [employer] [address], [place], [address], [employer] 03/15/2024 12:11:14 OBGyn Episode No OBEpisode recorded.
--- OUTSIDE RECORDS SUMMARY | 2025-05-28 20:39 | XMS_ITS | Encounter Summary ---
Author Organization [facility] Facility Care Team Providers Care Material Engineer Name Role Phone Kalee Jackson PORTER HEAD Primary Care Provider [phone] Yissel Santacruz PORTER HEAD Primary Care Provider [phone] Encounter Details Date Type Department Care Team (Latest Contact Info) Description 09/29/2016 Orders Only [facility] CLINCONV ProviderElisa MD [address] [place] [address] Social History Tobacco Use Types Packs/Day Years Used Date Smoking Tobacco: Never Assessed Comments Unknown Sex and Gender Information Value Date Recorded Sex Assigned at Not on file 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 Historical Provider Final Res ult * SCAN - LABS (09/29/2016 12:00 AM LAWN MOWER REPAIRER) Narrative 09/29/2016 12:00 AM LAWN MOWER REPAIRER Ordered by an unspecified provider. us Historical Provider Final Res ult documented in this encounter Visit Diagnoses Not on filedocumented in this encounter Care Teams Material Engineer Relationship Specialty Start Date End Date Kalee Jackson NP PCP - General Internal Medicine 02/17/21 05/09/25 Yissel Santacruz NP [address] [facility] [address] [place] [address] PCP - General Internal Medicine 05/10/25 documented as of this encounter
--- OUTSIDE RECORDS SUMMARY | 2025-05-28 20:39 | XMS_ITS | Encounter Summary ---
Author Organization [facility] Facility Care Team Providers Care Booking Officer Name Role Phone Kalee Jackson SEASONAL DELIVERY DRIVER Primary Care Provider [phone] Yissel Santacruz SEASONAL DELIVERY DRIVER Primary Care Provider [phone] Encounter Details Date Type Department Care Team (Latest Contact Info) Description 10/08/2016 Orders Only [facility] CLINCONV ProviderElisa MD [address] [place] [address] Social History Tobacco Use Types Packs/Day Years Used Date Smoking Tobacco: Never Assessed Comments Unknown Sex and Gender Information Value Date Recorded Sex Assigned at Not on file Legal Sex Female 3:43 AM PERIOPERATIVE EDUCATOR Gender Identity Female 01/04/2022 6:05 AM CDT Sexual Orientation Straight 01/04/2022 6: 05 AM CDT documented as of this encounter Plan of Treatment Not on file documented as of this encounter Procedures Procedure Name Priority Date/Time Associated Diagnosis Comments SCAN - LABS 10/08/2016 12:00 AM PERIOPERATIVE EDUCATOR documented in this encounter Results * SCAN - LABS (10/08/2016 12:00 AM PERIOPERATIVE EDUCATOR) Narrative 10/08/2016 12:00 AM PERIOPERATIVE EDUCATOR Ordered by an unspecified provider. us Historical Provider Final Res ult documented in this encounter Visit Diagnoses Not on filedocumented in this encounter Care Teams Booking Officer Relationship Specialty Start Date End Date Kalee Jackson SEASONAL DELIVERY DRIVER PCP - General Internal Medicine 02/17/21 05/09/25 Yissel Santacruz NP [address] [address] PCP - General Internal Medicine 05/10/25 documented as of this encounter
--- OUTSIDE RECORDS SUMMARY | 2025-05-28 20:39 | XMS_ITS | Encounter Summary ---
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
--- OUTSIDE RECORDS SUMMARY | 2025-05-28 20:39 | XMS_ITS | Encounter Summary ---
Author Organization [facility] Address [address] [place] [address] Phone Care Team Providers Care Front End Software Developer Name Role Phone Kalee Jackson NP Primary Care Provider [phone] Yissel Santacruz NP Primary Care Provider [phone] Encounter Details Date Type Department Care Team (Late st Contact Info) Description 02/17/2021 Telephone [facility] Surgery [address] [place] [address] Medical Office Building [address] [place] [address] Arielle Jensen RMA Social History [...] on file Legal Sex Female 3:43 AM ELEMENT SETTER Gender Identity Female 01/04/2022 6:05 AM CDT Sexual Orientation Straight 01/04/2022 6: 05 AM CDT documented as of this encounter Functional Status documented as of this encounter Plan of Treatment Not on file documented as of this encounter Visit Diagnoses Not on filedocumented in this encounter Care Teams Front End Software Developer Relationship Specialty Start Date End Date Kalee Jackson NP PCP - General Internal Medicine 02/17/21 05/09/25 Yissel Santacruz NP [address] [address] PCP - General Internal Medicine 05/10/25 documented as of this encounter
--- OUTSIDE RECORDS SUMMARY | 2025-05-28 20:39 | XMS_ITS | Clinical Summary ---
Author Organization [facility] Address [address] [place] [address] Care Team Providers Care Supervisor Game Farm Name Role Phone Unavailable Primary Care Provider Unavailabl e Social History Tobacco Use Types Packs/Day Years Used Date Smoking Tobacco: Never Assessed Comments Unknown Sex and Gender Information Value Date Recorded Sex Assigned at Not on file Legal Sex Female 7:53 AM ELECTRIC SWITCH TESTER Gender Identity Not on file Sexual Orientation [...]
[2025-05-28 21:25] LABS: Hematocrit 27.1 % (37.0-47.0); Hemoglobin 8.9 g/dL (12.0-15.0)
== END 2025-05-28 23:13 | disposition short-term general hospital (02) ==
PROVIDERS: Emergency Provider Emergency Medicine; PCP Nurse Practitioner
DX: K66.1 Hemoperitoneum (principal); D64.9 Anemia, unspecified; I10 Essential (primary) hypertension; Z98.84 Bariatric surgery status; Z90.710 Acquired absence of both cervix and uterus; K44.9 Diaphragmatic hernia without obstruction or gangrene; Z79.85 Long-term (current) use of injectable non-insulin antidiabetic drugs
CPT/HCPCS: 36415; 74177; 80053; 81001; 83605; 85014; 85018; 85025; 85610; 85730; 86850; 86900; 86901; 96360; 96361; 99285; J7120; Q9967